=== PATIENT | male | born 1950 | race Caucasian/White ===

== ENCOUNTER 2016-10-13 12:22 | Emergency (ER) | payer MEDICARE ==
[2016-10-13] MEDS ORDERED: oxyCODONE/Acetamin 5/325 MG* TAB PO ONE (13:29)
--- NOTE | 2016-10-13 13:54 | RAD ---
Indication: Fell and landed on back. Comparison: No relevant prior exams available on the [facility] for comparison. Technique: Upright AP 1335 hours Report: Mild prominence of the interstitial markings. Negative for pleural effusion or pneumothorax. Median sternotomy wires. Upper normal heart size. Unremarkable central pulmonary vasculature. No fractures evident. IMPRESSION: No traumatic thoracic injury evident.
[2016-10-13 16:14] VITALS: BP 171/75
--- NOTE | 2016-10-13 18:57 | ED ---
Peter Mixon Auryana, scribed for Devin Steele MD on 10/13/16 at 1352 . Back Pain - HPI Summary HPI Summary: 66 year old male presents with back pain s/p fall starting at 10:00 am. Patient reports that he slipped and fell on wet stairs. The pain radiates to the right shoulder. He denies any head injuries or any other pain. Pain is worse with movement, coughing, and laying back. 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 PMHx is significant for NV, and CABG. - History of Current Complaint Chief Complaint: EDBackInjuryPain Stated Complaint: FELL DOWN STAIRS Time Seen by Provider: 10/13/16 13:10 Hx Obtained From: Patient Onset/Duration: Sudden Onset - s/p fall today, Still Present Onset/Duration: Started Hours Ago Timing: Constant Back Pain Location: Is Discrete @ - back, Radiates To - right shoulder Severity Initially: Moderate Severity Currently: Moderate Pain Intensity: 7 Pain Scale Used: 0-10 Numeric Aggravating Symptom(s): Movement, Cough Associated Signs And Symptoms: Positive: Negative - Allergies/Home Medications Allergies/Adverse Reactions: Allergies Allergy/AdvReac Type Severity Reaction Status Date / Time No Known Allergies Allergy Verified 10/13/16 13:45 Home Medications: Home Medications Nitroglycerin TAB 0.4 MG* 0.4 mg SL Q5M PRN 10/13/16 [History Confirmed 10/13/16 ] PMH/Surg Hx/FS Hx/Imm Hx Cardiovascular History: Reports: Hx Myocardial Infarction - with stent placement Infectious Disease History: No Infectious Disease History: Denies: Traveled Outside the [place] in Last 30 Days - Family History Known Family History: Positive: Cardiac Disease, Other - CVA - Social History Occupation: Retired Lives: With Family Alcohol Use: None Hx Substance Use: No Substance Use Type: Reports: None Hx Tobacco Use: Yes Smoking Status (MU): Current Every Day Smoker Review of Systems Constitutional: Negative Negative: Fever Eyes: Negative ENT: Negative Cardiovascular: Negative Respiratory: Negative Gastrointestinal: Negative Genitourinary: Negative Positive: Myalgia - back pain Skin: Negative Neurological: Negative Psychological: Normal All Other Systems Reviewed And Are Negative: Yes Physical Exam Triage Information Reviewed: Yes Vital Signs On Initial Exam: Initial Vitals Temp Pulse Resp BP Pulse Ox 97.3 F 86 20 188/78 100 10/13/16 12:37 10/13/16 12:37 10/13/16 12:37 10/13/16 12:37 10/13/16 12:37 Vital Signs Reviewed: Yes Appearance: Positive: Well-Appearing, No Pain Distress, Well-Nourished Skin: Positive: Warm, Skin Color Reflects Adequate Perfusion, Dry, Other - abrasion of the right posterior chest with tenderness. Head/Face: Positive: Normal Head/Face Inspection Eyes: Positive: Normal ENT: Positive: Normal ENT inspection Neck: Positive: Supple, Nontender Respiratory/Lung Sounds: Positive: Breath Sounds Present, Other - RIGHT BASE - slight decreased in breath sounds Cardiovascular: Positive: Normal, RRR, Pulses are Symmetrical in both Upper and Lower Extremities Abdomen Description: Positive: Nontender, Soft Bowel Sounds: Positive: Present Musculoskeletal: Positive: Normal, Strength/ROM Intact Neurological: Positive: Normal, Sensory/Motor Intact Psychiatric: Positive: Normal, Affect/Mood Appropriate - [place] Coma Scale Coma Scale Total: 15 Diagnostics - Vital Signs Vital Signs Temp Pulse Resp BP Pulse Ox 10/13/16 12:46 97.3 F 86 18 182/82 98 10/13/16 12:37 97.3 F 86 20 188/78 100 - Laboratory Lab Statement: Any lab studies that have been ordered have been reviewed, and results considered in the medical decision making process. - Radiology CXR Xray Interpretation: No Acute Changes - IMPRESSION: No traumatic thoracic injury evident. Radiology Interpretation Completed By: Radiologist Re-Evaluation - Re-Evaluation First Eval Re-Evaluation Time: 15:13 - disucssed discharge Change: Improved - slight Back Pain Course/Dx - Course Course Of Treatment: Mr. Quigley slipped and fell back hittiing his right midback on the stairs. He has no SOB but does have pleuritic CP and CP with movement. His abdomen was soft and lungs a bit decreased likely from splinting. X-ray was OK and I treated him symptomatically. - Diagnoses Provider Diagnoses: Chest wall contusion Discharge - Discharge Plan Condition: Stable Disposition: HOME Prescriptions: oxyCODONE/Acetamin 5/325 MG* [Percocet 5/325 TAB*] 1 tab PO Q6H PRN #20 tab MDD 4 PRN Reason: Pain Patient Education Materials: Chest Wall Pain (ED) Referrals: [facility] [Outside] - 3 Days The documentation as recorded by the Peter ogden Auryana accurately reflects the service I personally performed and the decisions made by me, Devin Steele MD.
== END 2016-10-13 16:14 | disposition home or self-care (01) ==
LOC: ED 12:22
DX: S20.211A Contusion of right front wall of thorax, initial encounter (principal); M54.9 Dorsalgia, unspecified; R05 Cough; M79.1 Myalgia; F17.210 Nicotine dependence, cigarettes, uncomplicated; W10.9XXA Fall (on) (from) unspecified stairs and steps, initial encounter; Y93.9 Activity, unspecified; Y92.9 Unspecified place or not applicable; Y99.9 Unspecified external cause status
CPT/HCPCS: 71010; 99282; A9270-GY

== ENCOUNTER 2017-11-29 07:39 | Inpatient (IN) | payer MEDICARE ==
[2017-11-29] MEDS ORDERED: Nitroglycerin TAB 0.4 MG* 0.4 MG TAB ONE (07:41)
[2017-11-29] MEDS ORDERED: Heparin for STEMI(*) 5,000 UNITS/ML 1 ML VIAL IV ONE ×2 (07:41→07:42)
[2017-11-29] MEDS ORDERED: Aspirin 81 mg CHEW TAB* 81 MG TAB.CHEW ONE (07:41)
[2017-11-29] MEDS ORDERED: Morphine INJ* 2 MG/ML 1 ML SYRINGE (TWO MG - NEW SYRINGE VERSION) ONE (07:41)
[2017-11-29] MEDS ORDERED: Ticagrelor* 90 MG TAB PO ONE ×2 (07:41→07:42)
[2017-11-29] MEDS ORDERED: Morphine INJ** 4 MG/ML 1 ML CARPUJECT IV ONE (07:42)
[2017-11-29] MEDS ORDERED: Ondansetron INJ* 2 MG/ML VIAL ONE (07:42)
[2017-11-29] MEDS ORDERED: Ondansetron INJ* 2 MG/ML VIAL IV ONE (07:43)
[2017-11-29] MEDS ORDERED: Heparin 2 UNITS/ML IVPREMIX* 2,000 ML IV ONE (07:46)
[2017-11-29] MEDS ORDERED: Iohexol 350 (CONTRAST) 200 ML MDV IV ONE (07:47)
[2017-11-29] MEDS ORDERED: Lidocaine 1%* 5 ML VIAL ONE (07:47)
[2017-11-29] MEDS ORDERED: Midazolam* 1 MG/ML 10 ML VIAL (10 MG) ONE (07:53)
[2017-11-29] MEDS ORDERED: fentaNYL* 50 MCG/ML 2 ML VIAL (100 MCG VIAL) ONE ×2 (07:53→08:31)
[2017-11-29] MEDS ORDERED: Heparin(*) 1000 UNIT/ML 10 ML VIAL CATH LAB IV ONE (07:53)
[2017-11-29] MEDS ORDERED: nitroGLYCERIN DRIP* 25,000 MCG/250 ML BTL ONE ×2 (07:55)
[2017-11-29] MEDS ORDERED: nitroGLYCERIN DRIP* 25,000 MCG/250 ML BTL IV ONE (07:56)
--- NOTE | 2017-11-29 08:06 | ED ---
HPI Chest Pain - HPI Summary HPI Summary: This is scribe Collins Tariq documenting for attending Dr. Waqas Nation This patient is a 67 year old M [facility] with a chief complaint of 8/10 chest pain since just after rising after waking up at 0600 this AM. STEMI alert called 0732. Patient was given 2 NTG en route by EMS, and took 2 NTG of his own prior to EMS arrival. PMHx CT, CABG, 4x stents 04/1999 in [place], HTN, HLD, no DM. He endorses that the pain is similar as previous CT ; severe left anterior CP and pressure radiating to his left shoulder. Pt denies SOB and nausea. Patient endorses that his pain is progressively worsening. Pt has had previous catheterizations through both his wrist and groin. Pt actively smokes. I, Dr. Alan personally performed the services described in this documentation as scribed in my presence and it is both accurate and complete. - History of Current Complaint Chief Complaint: EDChestPainROMI Time Seen by Provider: 11/29/17 07:55 Hx Obtained From: Patient Onset/Duration: Started Hours Ago, Still Present, Worse Since - progressively worsening Timing: Constant, Lasting Hours Initial Severity: Moderate Current Severity: Severe Pain Intensity: 8 Pain Scale Used: 0-10 Numeric Chest Pain Location: Discrete at:, Left Anterior Chest Pain Radiates: Yes Chest Pain Radiates To:: Shoulder - left Character: Pressure/Squeezing Aggravating Factor(s): Exertion - Getting up and out of bed. Alleviating Factor(s): Nothing Associated Signs and Symptoms: Positive: Chest Pain. Negative: Shortness of Breath, Fever, Nausea, Vomiting Related History: Similar Episode/Dx as: - CT 1999, 4x stents, CABG - Allergy/Home Medications Allergies/Adverse Reactions: Allergies Allergy/AdvReac Type Severity Reaction Status Date / Time No Known Allergies Allergy Verified 11/29/17 07:53 Home Medications: Home Medications Atorvastatin* [Lipitor*] 80 mg PO DAILY 11/29/17 [History Confirmed 11/29/17] Hydrochlorothiazide TAB* [Hydrodiuril TAB*] 25 mg PO DAILY 11/29/17 [History Confirmed 11/29/17] Lisinopril TAB* [Prinivil TAB*] 10 mg PO DAILY 11/29/17 [History Confirmed 11/29] PMH/Surg Hx/FS Hx/Imm Hx Endocrine/Hematology History: Denies: Hx Diabetes, Hx Sickle Cell Disease Cardiovascular History: Reports: Hx Hypercholesterolemia, Hx Hypertension, Hx Myocardial Infarction - with stent placement History: Denies: Hx Dialysis Sensory History: Denies: Hx Legally Blind, Hx Deafness Opthamlomology History: Denies: Hx Legally Blind EENT History: Denies: Hx Deafness Psychiatric History: Denies: Hx Schizophrenia - Surgical History Surgery Procedure, Year, and Place: CABG, 4x stent 04/1999 in [place]. Infectious Disease History: No Infectious Disease History: Denies: Traveled Outside the in Last 30 Days - Family History Known Family History: Positive: Cardiac Disease, Other - CVA - Social History Lives: With Family Alcohol Use: None Hx Substance Use: No Substance Use Type: Reports: None Hx Tobacco Use: Yes Smoking Status (MU): Current Every Day Smoker Review of Systems Negative: Fever Positive: Chest Pain Negative: Shortness Of Breath Negative: Nausea Positive: no symptoms reported Positive: Arthralgia - left shoulder All Other Systems Reviewed And Are Negative: Yes Physical Exam - Summary Physical Exam Summary: VITAL SIGNS: Reviewed. GENERAL: Patient is a well-developed and nourished elderly male who is lying in the stretcher in distress secondary to pain. Patient is not in any acute respiratory distress. HEAD AND FACE: No signs of trauma. No ecchymosis, hematomas or skull depressions. No sinus tenderness. EYES: PERRLA, EOMI x 2, No injected conjunctiva, no nystagmus. EARS: Hearing grossly intact. Ear canals and tympanic membranes are within normal limits. MOUTH: Oropharynx within normal limits. Dry oral mucosa NECK: Supple, trachea is midline, no adenopathy, no JVD, no carotid bruit, no c- spine tenderness, neck with full ROM. CHEST: Symmetric, no tenderness at palpation LUNGS: Clear to auscultation bilaterally. No wheezing or crackles. CVS: Regular rate and rhythm, S1 and S2 present, no murmurs or gallops appreciated. ABDOMEN: Soft, non-tender. No signs of distention. No rebound, no guarding, and no masses palpated. Bowel sounds are normal. EXTREMITIES: FROM in all major joints, no edema, no cyanosis or clubbing. NEURO: Alert and oriented x 3. No acute neurological deficits. Speech is normal and follows commands. SKIN: Dry and warm, shah discoloration in both legs, probably secondary to vascular insufficiency. Triage Information Reviewed: Yes Vital Signs On Initial Exam: Initial Vitals Temp Pulse Resp BP Pulse Ox 97.7 F 102 18 174/98 99 11/29/17 07:42 11/29/17 07:42 11/29/17 07:42 11/29/17 07:42 11/29/17 07:42 Vital Signs Reviewed: Yes Diagnostics - Vital Signs Vital Signs Temp Pulse Resp BP Pulse Ox 11/29/17 07:42 97.7 F 102 18 174/98 99 - Laboratory Result Diagrams: 11/30/17 04:45 11/30/17 04:45 Lab Statement: Any lab studies that have been ordered have been reviewed, and results considered in the medical decision making process. - EKG 0740 Cardiac Rate: Tachycardia - 100 EKG Rhythm: Sinus Tachycardia Ectopy: None EKG Interpretation: ST elevations in II, III, AVF, and reciprocal changes in V2- V5. Chest Pain Course/Dx - Course Course Of Treatment: Pt given heparin at 0805, and heparin, morphine, zofran, and brilinta at 0806. STEMI alert called 0732. Assessment/Plan: This patient is a 59-year-old male who presents to the emergency department with a chief complaint of having left sided chest pain. The patient arrived via EMS. He reports that pain started approximately 6 AM and he feels like when he had a previous CT. He denies any nausea vomiting, shortness of breath and dizziness. Pain is nonradiating. He has past medical history for CT status post stents, a quadruple bypass, hypertension, dyslipidemia. Patient is a nonsmoker. EKG shows an ST elevations in 2, 3 and aVF with reciprocal changes in V2 to V5. EMS has given nitroglycerin 4 and aspirin 324. In the ED course the patient was given Brilinta, Zofran, morphine , and heparin. The patient continued to have chest pain therefore we started and the nitroglycerin drip. Discussed the case with Dr. Molina who will be taking the patient to the [facility]. At this time the patient is hemodynamically stable alert and oriented 3. - Chest Pain Differential Diagnosis/HQI/PQRI: Acute CT, ACS, Angina, Aortic Aneurysm, CHF, Chest Wall, GI Disease, Lower Respiratory Infection - Diagnoses Provider Diagnoses: STEMI (ST elevation myocardial infarction) During the Visit The Following Alert/Code Occurred: STEMI - Provider Notifications Discussed Care Of Patient With: Maida Molina Time Discussed With Above Provider: 07:36 Instructed by Provider To: Other - Will admit pt because he thinks pt has inferior infarct. - Critical Care Time Critical Care Time: 30-74 min Discharge - Sign-Out/Discharge Documenting (check all that apply): Patient Departure - admit - Discharge Plan Condition: Critical Disposition: ADMITTED TO [facility] - Billing Disposition and Condition Condition: CRITICAL Disposition: Admitted to [facility] Attestations User Type: Provider with Scribe Provider Attestation: The documentation recorded by the scribe accurately reflects the service I personally performed and the decisions made by me.
[2017-11-29 08:08] LABS: EGFR Non-African American 60.2 (>60); INR 0.95 (0.77-1.02)
[2017-11-29 08:11] LABS: Hematocrit 48 % (42-52); Hemoglobin 16.2 g/dl (14.0-18.0); Mean Corpuscular HGB Conc 34 g/dl (31-36); Mean Corpuscular Hemoglobin 30 pg (27-31); Mean Corpuscular Volume 87 fL (80-94); Red Blood Count 5.47 10^6/ul (4.00-5.40); Red Cell Distribution Width 14 % (10.5-15); White Blood Count 7.9 10^3/ul (3.5-10.8)
[2017-11-29] MEDS ORDERED: Iodixanol* (CONTRAST) 320 MG/ML 100 ML SDV ONE (08:14)
--- NOTE | 2017-11-29 08:18 | RAD ---
INDICATION: Chest pain COMPARISON: October 13, 2016 TECHNIQUE: An AP portable view obtained at 0080 hours is submitted. FINDINGS: Bones/Soft Tissues: There are no acute bony findings. There is prior sternotomy/CABG Cardiomediastinal: The cardiomediastinal silhouette is normal. Lungs: There are no infiltrates. Pleura: There are no pleural effusions. Other: None IMPRESSION: NO ACTIVE DISEASE. POSTOPERATIVE CHANGE
[2017-11-29] MEDS ORDERED: Metoprolol Tartrate IV* 1 MG/ML 5 ML VIAL ONE (08:28)
[2017-11-29 08:35] LABS: ABS Basophils 0.1 10^3/ul (0-0.2); ABS Eosinophils 0.2 10^3/ul (0-0.6); ABS Lymphocytes 1.6 10^3/ul (1.0-4.8); ABS Monocytes 0.5 10^3/ul (0-0.8); ABS Neutrophils 5.5 10^3/ul (1.5-7.7); ABS Nucleated RBC 0 10^3/ul; Eosinophil % 2.6 % (0-6); Lymphocyte % 19.9 % (25-47); Mean Platelet Volume 9.1 um3 (7.4-10.4); Nucleated Red Blood Cells % 0.1; Platelet Count 99 10^3/ul (150-450)
[2017-11-29] MEDS ORDERED: Heparin 2 UNITS/ML IVPREMIX* 1,000 ML IV ONE (09:12)
[2017-11-29] MEDS ORDERED: NS 0.9% 1000 ML* 1,000 ML IV ONE (10:19)
[2017-11-29] MEDS ORDERED: Acetaminophen TAB* 325 MG PO PRN (10:19)
[2017-11-29] MEDS ORDERED: Nitroglycerin TAB 0.4 MG* 0.4 MG TAB SL PRN (10:19)
[2017-11-29] MEDS: Metoprolol Tartrate TAB* 25 MG PO SCH ×2 (11:02→19:17)
[2017-11-29] MEDS: Atorvastatin* 80 MG TAB PO SCH (16:24)
[2017-11-29] MEDS: Ticagrelor* 90 MG TAB PO SCH (20:19)
[2017-11-29] MEDS: Lisinopril TAB* 10 MG PO SCH (20:19)
--- NOTE | 2017-11-29 20:58 | HP ---
CC: Dr. Varghese; Dr. Stokes * HISTORY AND PHYSICAL: DATE OF ADMISSION: 11/29/17 PRIMARY CARE PHYSICIAN: Dr. Varghese. MATCH MAKER: Dr. Stokes. HISTORY OF PRESENT ILLNESS: A 67-year-old male with extensive cardiac history presenting to the ER with inferior wall ST elevation infarct. I have reviewed his [facility] records as well as old records from [place]. He apparently had an infarct around 1994; in 1999, he had CABG x4 in [place] with a VARGAS to the LAD, a saphenous vein graft sequence to a diagonal and a marginal, and a second saphenous vein graft to the RCA, which was described as dominant. In 2008, he had an inferior wall ST elevation infarct, had catheterization in [place], which revealed severe diffuse degeneration of the RCA graft. RCA graft intervention was attempted, resulted in no reflow with an inferior ST elevation infarct. EF was 40%. At that time, his RCA had a [employer] , the vein graft to the diagonal and circumflex was patent, apparently subsequently, he has had intervention. In 2010, he presented here in [place] with a non-Q-wave infarct. Cath here by Dr. Noonan revealed proximal circumflex 85% stenosis, 70% left main stenosis, patent LAD with flow from the VARGAS, and occlusion of the vein graft to the RCA with severe diffuse disease of the vein graft to the marginal, which was not intervened on because of high risk , instead [place] circumflex was stented with a 2.75x18 LILIAM. However, the bypassed marginal branch was not intervened upon. VARGAS to LAD was patent. EF then was described as 35% to 40% by echo. He has history of apparent intermittent medication noncompliance, has continued to smoke. PAST MEDICAL HISTORY: Hyperlipidemia, hypertension. PREHOSPITAL MEDICATIONS: 1. Nitroglycerin 0.4 sublingual p.r.n. 2. Lisinopril 10 mg b.i.d. 3. Lipitor 80 mg daily. 4. HydroDIURIL 25 mg daily. 5. He is not on beta-kate, does not have any history of beta-kate intolerance. He has known LV systolic dysfunction. ALLERGIES: None to medication. SOCIAL HISTORY: He is a smoker. REVIEW OF SYSTEMS: General: No weight loss. No fevers. BURIAL AGENT: No history of TIA or CVA. GI: No history of peptic ulcer disease or bleeding. In the past on aspirin and Plavix, he has not had bleeding. Heme: No history of malignancy or anemia. Circulatory: No claudication, although bruits have been described previously in his femorals. Remainder all negative. PHYSICAL EXAMINATION VITAL SIGNS: Presenting BP 174/98, heart rate 102. In the cath lab tech, he was complaining of severe chest pain. HEENT: Normal without xanthelasma, scleral injection, or jaundice. NECK: Carotids without bruits, palpable. LUNGS: Clear laterally without rales. CARDIAC: Notable for a probable S4 gallop and a soft systolic murmur suggestive of MR. Maneuvers were not performed. ABDOMEN: Soft, nontender. No bruit, I could not feel the aorta or liver edge. EXTREMITIES: Femoral pulses palpable with soft bruits. Pedal pulses palpable. No cyanosis, clubbing, or edema. Radial pulses palpable. DIAGNOSTIC STUDIES/LAB DATA: EKG at [address] elevation infarct with already inferior Q-waves as well as reciprocal ST depression at I, aVL, V2 through V5. Compared to EKG of 11/14/10, the inferior Q-waves are old, the acute infarct pattern is new. His CBC is notable only for a platelet count of 99,000, in the past has been as low as 107,000. BMP noted for creatinine of 1.2 with GFR of 60, last creatinine on 11/09/10 was 0.89. Random blood sugar 149. His lactate is normal. BNP elevated at 348. First troponin 0.05. Cholesterol 211, triglycerides 104, LDL 160, HDL 30.7, the patient reports that he is taking his Lipitor 80. Chest x-ray: Portable film, my review shows borderline cardiomegaly, calcification of the aortic knob, changes of previous bypass surgery and no gross heart failure or infiltrate. IMPRESSION AND PLAN: 1. Inferior wall ST elevation infarct. He has had previous bypass, in 2010 had documented occlusion of the graft to the right coronary artery, diffuse degenerative disease of the vein graft to the diagonal and circumflex obtuse marginal. Proximal circumflex was stented, he had moderate left main disease with moderate left ventricular systolic dysfunction. 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 Most likely, culprit lesion will be either circumflex progression or restenosis or progression of his left main. 2. Renal insufficiency, new diagnosis. We will minimize contrast use, volume load, repeat. 3. Hyperlipidemia. Per history, he is taking Lipitor 80, yet his LDL is very elevated. 4. Hypertension. 5. Left ventricular systolic dysfunction. He is not on a beta-kate, that will be restarted. 6. Thrombocytopenia, unknown etiology. This can be followed as an outpatient. [id number]/[facility] #: [id number] MTDD
[2017-11-30] MEDS: Metoprolol Tartrate TAB* 25 MG PO SCH ×3 (02:57→18:28)
[2017-11-30 04:58] LABS: ABS Basophils 0.1 10^3/ul (0-0.2); ABS Eosinophils 0.1 10^3/ul (0-0.6); ABS Lymphocytes 0.8 10^3/ul (1.0-4.8); ABS Monocytes 0.5 10^3/ul (0-0.8); ABS Neutrophils 5.4 10^3/ul (1.5-7.7); ABS Nucleated RBC 0 10^3/ul; Eosinophil % 1.2 % (0-6); Hematocrit 47 % (42-52); Hemoglobin 15.9 g/dl (14.0-18.0); Lymphocyte % 11.2 % (25-47); Mean Corpuscular HGB Conc 34 g/dl (31-36); Mean Corpuscular Hemoglobin 30 pg (27-31); Mean Corpuscular Volume 88 fL (80-94); Mean Platelet Volume 8.8 um3 (7.4-10.4); Nucleated Red Blood Cells % 0.1; Platelet Count 69 10^3/ul (150-450); Red Blood Count 5.32 10^6/ul (4.00-5.40); Red Cell Distribution Width 14 % (10.5-15); White Blood Count 6.9 10^3/ul (3.5-10.8)
[2017-11-30] MEDS ORDERED: Perflutren Lipid Microsphere* 3 ML VIAL ONE (09:02)
[2017-11-30] MEDS: Lisinopril TAB* 10 MG PO SCH ×2 (09:32→21:54)
[2017-11-30] MEDS: Aspirin 81 mg CHEW TAB* 81 MG TAB.CHEW PO SCH (09:32)
[2017-11-30] MEDS: Ticagrelor* 90 MG TAB PO SCH ×2 (09:32→21:54)
--- NOTE | 2017-11-30 15:49 | ECHO ---
Patient: YARON WHITING Rec#: [id number] : 1950 Date: 11/30/2017 Age: 67y Height: 183 cm / 72.0 in Weight: 81.6 kg / 179.8 lbs Sex: M BSA: 2.04 Room#: ICU 12 Admit Date#: 11/29/2017 Type: Inpatient Referring: Maida Molina MD Reading: Johnny Sanchez MD Vegetable Loader Machine Operator: Meli Betancourt RN RDCS CC: Armand Varghese MD Transthoracic Echocardiogram Indication: STEMI, S/P PCI BP: 161/77 HR: 58 Rhythm: Bradycardia Findings History: CAD, CABG, PCI, HTN, HLD, former smoker Technical Comments: The study quality is fair. The study is technically limited due to poor apical windows. Left Ventricle: The left ventricular chamber size is mildly dilated. Moderate concentric left ventricular hypertrophy is observed. There are multiple regional wall motion abnormalities. There is moderate to severely decreased left ventricular systolic function. The estimated ejection fraction is 30-35%. Abnormal left ventricular diastolic function is observed. The left ventricular diastolic filling pattern is restrictive. The left ventricular diastolic filling pattern is consistent with elevated mean left atrial pressure. The basal anteroseptal, basal anterior, basal inferoseptal, mid anteroseptal, mid anterior, mid inferoseptal, apical septal, and apical lateral wall segments are hypokinetic (score 2). The basal anterolateral, mid anterolateral, and mid inferior wall segments are akinetic (score 3). The basal inferior wall segment is dyskinetic (score 4). There is scarring/thinningof the basal inferolateral, and mid inferolateralwall segments (score 5). Overall wallmotion score index is 2.56 Left Atrium: The left atrium is mildly dilated. Right Ventricle: The right ventricle is slightly dilated. The right ventricular global systolic function is low normal. Right Atrium: The right atrium is mildly dilated. Aortic Valve: The aortic valve leaflets are moderately thickened. Systolic excursion of the aortic valve cusps is reduced. There is no evidence of aortic regurgitation. There is moderate to severe aortic stenosis. The mean gradient of the aortic valve is 13 mmHg. The peak instantaneous gradient of the aortic valve is 25 mmHg. The aortic valve area, by peak velocities, is calculated at 1.1 cm2. The aortic valve area, by VTI's, is calculated at 1 cm2. consistent with low output/low gradient aortic stenosis. The highest aortic valve velocity was obtained with the standard probe from the A5C view. Mitral Valve: There is mitral annular calcification. The mitral valve leaflets are mildly thickened. There is mild mitral regurgitation. There is no evidence of mitral stenosis. Tricuspid Valve: The tricuspid valve leaflets are normal. There is mild tricuspid regurgitation. Unable to estimate the right ventricular systolic pressure. There is no tricuspid stenosis. Pulmonic Valve: The pulmonic valve appears normal. There is a trace pulmonic regurgitation. There is no pulmonic stenosis. Pericardium: There is no significant pericardial effusion. Aorta: There is no dilatation of the ascending aorta. The aortic arch is not well visualized. There is no dilation of the aortic root. Pulmonary Artery: The main pulmonary artery appears normal. Venous: The inferior vena cava is dilated. There is an approximate 50% respiratory change in the inferior vena cava dimension. Contrast: Definity was used to optimize study. A total of 5 ml of diluted Definity was given IV. Conclusions The left ventricular chamber size is mildly dilated. Moderate concentric left ventricular hypertrophy is observed. There are multiple regional wall motion abnormalities. There is moderate to severely decreased left ventricular systolic function. The estimated ejection fraction is 30-35%. The left ventricular diastolic filling pattern is restrictive. The left ventricular diastolic filling pattern is consistent with elevated mean left atrial pressure. The left atrium is mildly dilated. The right ventricle is slightly dilated. The right ventricular global systolic function is low normal. The right atrium is mildly dilated. The aortic valve leaflets are moderately thickened. There is moderate to severe aortic stenosis. The aortic valve area, by VTI's, is calculated at 1 cm2, consistent with low output/low gradient aortic stenosis. There is mild mitral regurgitation. There is mild tricuspid regurgitation. Compared to 10/2010, the EF has decreased from 40-45% then to 30-35% now. The Aortic stenosis is new. Measurements Name Value Normal Range RVIDd (AP) 2D 2.9 cm (0.9 - 2.6) RVDdMajor (2D) 3.9 cm (2.2 - 4.4) RAd ISD 4CH 5.7 cm (3.4 - 4.9) RA (A4C)W 4.6 cm (2.9 - 4.6) IVSd (2D) 1.4 cm (0.6 - 1) LVPWd (2D) 1.3 cm (0.6 - 1) LVIDd (2D) 5.8 cm (3.6 - 5.4) LVIDs (2D) 4.8 cm - LV FS (2D) 17 % (25 - 45) EF Teichholz (2D) 35 % - Aortic Annulus 2.1 cm (1.4 - 2.6) Ao root diameter (2D) 2.7 cm (2.1 - 3.5) Ascending Ao 3.1 cm (2.1 - 3.4) LA dimension (AP) 2D 4.6 cm (2.3 - 3.8) LAd ISD 4CH 5.7 cm (2.9 - 5.3) LA ISD 4CH W 4.5 cm (2.5 - 4.5) Name Value Normal Range LA ESV BP (A/L) index 27.8 ml/m2 - Name Value Normal Range MV E-wave Vmax 1.1 m/sec - MV deceleration time 222 msec - MV A-wave Vmax 0.54 m/sec - MV E:A ratio 2 ratio - LV septal e' Vmax 0.05 m/sec - LV lateral e' Vmax 0.07 m/sec - LV E:e' septal ratio 22 ratio - LV E:e' lateral ratio 15.7 ratio - Name Value Normal Range AV Vmax 2.5 m/sec - AV VTI 54.8 cm - AV peak gradient 25 mmHg - AV mean gradient 13 mmHg - LVOT diameter 2 cm - LVOT Vmax 0.83 m/sec - LVOT VTI 17.2 cm - LVOT peak gradient 3 mmHg - LVOT mean gradient 1 mmHg - DOI (VTI) 0.31 ratio - DOI (Vmax) 0.33 ratio - SV LVOT 54 ml - CO LVOT 3.1 l/min - Cardiac index 1.5 l/min/m2 - ROSLYN (continuity Vmax) 1.1 cm2 - ROSLYN (continuity VTI) 1 cm2 - Name Value Normal Range IVC diameter 2.3 cm - Name Value Normal Range PV Vmax 0.69 m/sec - Wallmotion BAS Hypokinetic BA Hypokinetic BAL Akinetic HARI Scarring/Thinning BI Dyskinetic BIS Hypokinetic MAS Hypokinetic MA Hypokinetic MAL Akinetic MIL Scarring/Thinning NE Akinetic MIS Hypokinetic Hypokinetic AA Normal AL Hypokinetic AI Normal APEX Normal
[2017-11-30] MEDS: Atorvastatin* 80 MG TAB PO SCH (16:39)
[2017-12-01] MEDS: Metoprolol Tartrate TAB* 25 MG PO SCH ×2 (03:46→10:53)
[2017-12-01 06:04] LABS: ABS Basophils 0.1 10^3/ul (0-0.2); ABS Eosinophils 0.1 10^3/ul (0-0.6); ABS Monocytes 0.6 10^3/ul (0-0.8); ABS Neutrophils 5.9 10^3/ul (1.5-7.7); ABS Nucleated RBC 0 10^3/ul; Eosinophil % 1.5 % (0-6); Hematocrit 45 % (42-52); Hemoglobin 15.1 g/dl (14.0-18.0); Lymphocyte % 12.4 % (25-47); Mean Corpuscular HGB Conc 34 g/dl (31-36); Mean Corpuscular Hemoglobin 29 pg (27-31); Mean Corpuscular Volume 87 fL (80-94); Mean Platelet Volume 9.6 um3 (7.4-10.4); Nucleated Red Blood Cells % 0.1; Platelet Count 78 10^3/ul (150-450); Red Blood Count 5.21 10^6/ul (4.00-5.40); Red Cell Distribution Width 14 % (10.5-15); White Blood Count 7.7 10^3/ul (3.5-10.8)
[2017-12-01] MEDS: Aspirin 81 mg CHEW TAB* 81 MG TAB.CHEW PO SCH (07:52)
[2017-12-01] MEDS: Lisinopril TAB* 10 MG PO SCH ×2 (07:53→20:21)
[2017-12-01] MEDS: Ticagrelor* 90 MG TAB PO SCH ×3 (07:53→20:21)
--- NOTE | 2017-12-01 16:14 | CATH ---
CC: Dr. Varghese; Dr. Galileo Stokes at [place]. STENT REPORT: DATE OF PROCEDURE: 11/29/17 PRIMARY CARE PHYSICIAN: Dr. Varghese. CARDIOTHORACIC ICU RN: Dr. Galileo Stokes at [place]. PROCEDURES: Right common femoral artery access, VARGAS angiography, saphenous vein graft angiography, bilateral selective coronary cineangiography, stent placement left main 3.5 x 16 drug-eluting stent, stent placement circumflex 3.0 x 8 Synergy drug-eluting stent, intracoronary IVUS evaluation, left heart catheterization. No left ventriculogram. HISTORY: A 67-year-old male with remote inferior infarct around 1994. He underwent bypass x4 in 1999 with a VARGAS to the LAD, saphenous vein graft sequenced to a diagonal and marginal, and a saphenous vein graft to the RCA. In [address]-elevation infarct, attempted RCA revascularization in [place] was accompanied by no reflow and an inferior ST- elevation infarct, EF 40%. He underwent catheterization here in 2010 in the setting of a non ST-elevation infarct, was found to have 80% proximal circumflex stenosis which was stented with a 2.75 x 18 drug-eluting stent. The RCA was occluded, the left main had 70% stenosis, the vein graft to the RCA was occluded, the vein graft to the marginal was diffusely and severely diseased and was not treated, the VARGAS to the LAD was patent. Echo EF was 35% to 40%. Cath in 2014 apparantly revealed the SVG to Dx/CxOM to be occluded. He presented with an inferior ST-elevation infarct with suspected progression of his left main disease or circumflex or in-stent circumflex restenosis. PROCEDURE ACCESS: Right common femoral artery sheath 6F. DIAGNOSTIC CATHETER: 6F SILVESTRE, 6F L4. MEDICATIONS: 1. Subcu lidocaine. 2. IV Versed. 3. IV fentanyl. 4. Brilinta 180 mg p.o. in the ER as well as aspirin. 5. Heparin 4000 units IV, 3000 units IV. 6. Lopressor 5 mg IV. 7. Continued IV nitroglycerin infusion. GUIDING CATHETER: Left main circumflex intervention 6FLBU 3.5 wire 14 BMW. The left main lesion was the presumed culprit as the circumflex appears to be codominant and the left coronary system provides left to right collaterals to the distal right coronary. After the left main and circumflex were wired, a 3 x 15 balloon was used to predilate the left main, at 14 atmospheres for 27 seconds, 17 atmospheres at 20 seconds. It was then stented with a 3.5 x 16 Synergy drug- eluting stent 11 atmospheres 14 seconds, postdilated with a 3.5 x 15 NC balloon 16 and then 18 atmospheres. An OptiCross 3-Malay IVUS catheter was then introduced to ensure adequate expansion and apposition within the left main. Because of inadequate expansion the 3.5 x 15 mm balloon was then reinflated to 20 atmospheres of 15 seconds, 20 for 15, 20 for 15, and in the proximal left main to 22 atmospheres of 15 seconds. A stenosis at the distal end of the old proximal circumflex stent was evident post high pressure dilatation, was covered with a 3 x 8 mm Synergy drug-eluting stent 11 atmospheres 13 seconds, post dilated with a 3 x 8 NC balloon 16 atmospheres 35 seconds. Repeat IVUS evaluation was performed, right femoral artery was closed with Angio-Seal. HEMODYNAMICS: Initial AO 153/78. Final BP 122/70. LV 142/20, on pull back at most 5 mm peak to peak gradient. ANGIOGRAPHY: Right common femoral artery: Sheath entry is in segment 2, there is no stenosis. VARGAS: The SILVESTRE is moderate, inserts into the mid LAD without insertion stenosis , fills the antegrade to the apex, there are septal to distal right collaterals. The LAD has a proximal competitive flow, has a proximal small bifurcated diagonal which appears to be diffusely decreased. Saphenous Vein Graft Circumflex: The graft nubbin was injected, it is occluded. The RCA vein graft is known to be occluded. Minto RCA: The RCA is by prior description dominant, although I wondered if it was codominant, again it is occluded in its mid portion, fills by bridging collaterals as well as by right to left collaterals. The occlusion is not well suited for revascularization. Left Main: The left main has progressed since 2010 with an 80% to 90% tubular stenosis, there was wedging with catheter engagement. LAD: The LAD has on ostial slit-like 80% stenosis, followed by a moderate to diagonal, then has competitive flow from the VARGAS. Circumflex: The circumflex is likely codominant, moderate, has ostial 50% stenosis. The first marginal is very small, the second marginal is the grafted vessel, the origin is not clearly identifiable, distally it trifurcates. At the end of the procedure I did attempt to enter the second marginal using a BMW as well as a PT Graphix wire without being able to engage the ostium. Distally , the circumflex supplies a moderate posterolateral, and a small probable circumflex PDA. There are left to right distal collaterals. There was heavy calcification of the left main, proximal LAD, and proximal circumflex. After left main revascularization, postdilatation, and placement of an additional distal circumflex stent there was a step down at the distal end of the most distal stent, the left main is still smaller than the proximal circumflex, but much improved. Distal circumflex fills normally, including a circumflex PDA which abruptly stopped, I wonder if it was originally bypassed. IVUS: See addendum. CONCLUSION: 1. Severe 3-vessel disease with patent VARGAS to the LAD, occluded vein graft to the RCA, chronic, occlusion of the vein graft the circumflex, known occluded in 2014. Progression of left main. Successful protected left main stenting with adequate apposition and expansion by IVUS. 2. Mild aortic stenosis by pull back. 3. 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 4. Successful Angio-Seal right common femoral artery. [id number]/[facility] #: [id number] SWETA
--- NOTE | 2017-12-01 16:39 | CATH ---
IVUS REPORT: ADDENDUM: Please addend this to the cath report. Initial IVUS evaluation revealed coverage of the ostium of the left main and under expansion of the left main stent in several areas. After higher pressure balloon post dilatation, IVUS evaluation revealed distal reference area of 6.72 sq mm, 2.6 x 3.1 mm. The minimal luminal area within the circumflex stent was 6.7 sq mm, 2.5 x 3.2 mm with 1 quadrant of calcification. All stents were opposed. The minimal luminal area within the left main was in the proximal left main, was 8.34 sq mm, 2.7 x 3.8 mm with 2 quadrants of calcification. IVUS demonstrated adequate expansion and apposition. [id number]/[facility] #: [id number] SWETA
[2017-12-01] MEDS: Atorvastatin* 80 MG TAB PO SCH (16:46)
[2017-12-01] MEDS ORDERED: Metoprolol Tartrate TAB* 25 MG PO SCH (22:00)
[2017-12-02] MEDS ORDERED: Metoprolol Succinate XL TAB* 50 MG PO SCH (09:00)
[2017-12-02] MEDS: Ticagrelor* 90 MG TAB PO SCH (09:19)
[2017-12-02] MEDS: Aspirin 81 mg CHEW TAB* 81 MG TAB.CHEW PO SCH (09:19)
[2017-12-02] MEDS: Lisinopril TAB* 10 MG PO SCH (09:19)
[2017-12-02 12:03] VITALS: BP 160/73
--- NOTE | 2017-12-02 21:09 | DS ---
CC: Dr. Varghese; Dr. Stokes* DISCHARGE SUMMARY: DATE OF ADMISSION: 11/29/17 DATE OF DISCHARGE: 12/02/17 PRIMARY CARE PHYSICIAN: Dr. Varghese at [place]. SWIMMING POOL INSTALLER: Dr. Stokes at [place]. DISCHARGE DIAGNOSES: 1. Inferior wall ST elevation infract. 2. Previous bypass grafting. 3. Aortic stenosis, mild to moderate. 4. Tobacco use. 5. Hypertension. 6. Hyperlipidemia. 7. Thrombocytopenia. CONDITION ON DISCHARGE: Stable. PROCEDURES: Cardiac cath, right femoral access, IVUS guided stent placement left main and proximal circumflex with 3.5 x 16 and 3.0 x 8 Synergy eluting stents respectively. Echocardiogram. DISCHARGE MEDICATIONS: 1. Aspirin 81 mg daily. 2. Lipitor 80 mg daily. 3. Lisinopril 20 mg b.i.d. 4. Toprol-XL 50 mg daily. 5. Nitroglycerin 0.4 sublingual p.r.n. 6. Brilinta 90 mg b.i.d. 7. To resume his HydroDIURIL 25 mg daily. FOLLOWUP: Follow up with Dr. Stokes next week as scheduled. ACTIVITY: No strenuous exertion for 1 week. To walk daily. To not lift more than 10 to 15 pounds for 1 week. WOUND CARE: Shower only for 3 days. HISTORY: See H and P. LABORATORY DATA/DIAGNOSTIC STUDIES: His troponin peaked at 0.42 consistent with a very small infarct, BNP was 141. His cholesterol was high at 211 on admission with triglycerides 104, LDL 160, HDL 30.7, per the patient, he has been on Lipitor only for a few weeks. Direct LDL was 160. His hemoglobin A1c was 5.7, minimally elevated. Random blood sugars were in the 140 to 160s. His presenting creatinine was 1.2, but subsequently normalized to 0.89, GFR 85. His CK-MB peaked at 119.8. Total CPK 1075. Consistent with his inferior infarct superimposed on a prior inferior infarct. EKG today reveals sinus rhythm at 57, inferior Q waves, and persisting [address] depression in 1, aVL, V5, V6. HOSPITAL COURSE: He presented with an inferior ST elevation infarct with complex prior cardiac history. He underwent cardiac cath via the femoral approach, with three-vessel disease with patent VARGAS to the LAD, occluded chronic vein graft to the RCA, clinically occluded vein graft to the circumflex and progression of his left main disease with probably a codominant circumflex system. 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 He has successful protected left main stenting with IVUS guidance as above. Postprocedure, he had no recurrence of chest pain, no arrhythmias, no heart failure symptoms. His echocardiogram suggested significant aortic stenosis, but on pull back he had at most 5 mm peak -to-peak aortic valve gradient. Transthoracic echo documented LV systolic dysfunction with EF of 30 to 35%. As he was hypertensive, his PENNY inhibitor dose was increased, beta-kate was added. His meds for LV systolic dysfunction will be titrated on an outpatient basis. He is fully ambulatory, has not had any groin issues. He has no dyspnea. On the day of discharge, his blood pressure is 160/73, heart rate is 56, sinus bradycardia. His lungs are clear, he has a mid peaking systolic ejection murmur. The right groin is without hematoma. He has palpable pedal pulse and no edema. He received full discharge instructions. [id number]/[facility] #: [id number] [facility]
== END 2017-12-02 13:45 | disposition home or self-care (01) | DRG 247 ==
LOC: ED 07:39 → CHICATH 08:10 → ICU 10:19 → MEDTELE 11-30 17:39
PROVIDERS: ADMIT Internal Medicine Cardiovascular Disease; ATTEND Internal Medicine Cardiovascular Disease
PROC: 027135Z Dilation of Coronary Artery, Two Arteries with Two Drug-eluting Intraluminal Devices, Percutaneous Approach (ICD-10-PCS; 2017-11-29)
PROC: B2111ZZ Fluoroscopy of Multiple Coronary Arteries using Low Osmolar Contrast (ICD-10-PCS; 2017-11-29)
PROC: B2131ZZ Fluoroscopy of Multiple Coronary Artery Bypass Grafts using Low Osmolar Contrast (ICD-10-PCS; 2017-11-29)
PROC: B2181ZZ Fluoroscopy of Left Internal Mammary Bypass Graft using Low Osmolar Contrast (ICD-10-PCS; 2017-11-29)
PROC: B240ZZ3 Ultrasonography of Single Coronary Artery, Intravascular (ICD-10-PCS; 2017-11-29)
PROC: 4A023N7 Measurement of Cardiac Sampling and Pressure, Left Heart, Percutaneous Approach (ICD-10-PCS; principal; 2017-11-29 08:00)
DX: I21.19 ST elevation (STEMI) myocardial infarction involving other coronary artery of inferior wall (principal); I25.810 Atherosclerosis of coronary artery bypass graft(s) without angina pectoris; E78.5 Hyperlipidemia, unspecified; I10 Essential (primary) hypertension; F17.210 Nicotine dependence, cigarettes, uncomplicated; M25.512 Pain in left shoulder; D69.6 Thrombocytopenia, unspecified; N28.9 Disorder of kidney and ureter, unspecified; I25.84 Coronary atherosclerosis due to calcified coronary lesion; I35.0 Nonrheumatic aortic (valve) stenosis; Z79.02 Long term (current) use of antithrombotics/antiplatelets; Z95.5 Presence of coronary angioplasty implant and graft; Z82.3 Family history of stroke; Z82.49 Family history of ischemic heart disease and other diseases of the circulatory system; I25.2 Old myocardial infarction; Z91.14 Patient's other noncompliance with medication regimen; Z79.82 Long term (current) use of aspirin
CPT/HCPCS: 36415; 71045; 80048; 80053; 80061; 82550; 82553; 83036; 83605; 83721; 83880; 84484; 85025; 85060; 85347; 85610; 85730; 87641; 93005; 93306; 99156; 99157; 99285; A9270-GY; C1725; C1769; C1876; C1887; C8929; C9606-LM; J1644; J2250; J2270; J2405; J3010; J3490

== ENCOUNTER 2017-12-05 16:30 | Inpatient (IN) | payer MEDICARE ==
[2017-12-05] MEDS ORDERED: NS 0.9% 1000 ML* 1,000 ML IV ONE (16:31)
--- NOTE | 2017-12-05 16:45 | ED ---
Neurological HPI - HPI Summary HPI Summary: This is scribe Ave Acosta documenting for attending Ti Alan MD. This patient is a 67 year old M BIBA to [facility] accompanied by his and children due to left sided weakness beginning between 1400 and 1430. Patient states he noticed the left sided weakness and dizziness after driving home after walking the park. Patient had a STEMI with stents placed about a week ago. I, Dr. Alan, personally performed the services described in this documentation as scribed in my presence and it is both accurate and complete. - History of Current Complaint Stated Complaint: code carter Time Seen by Provider: 12/05/17 16:31 Hx Obtained From: Patient Onset/Duration: Sudden Onset Timing: Constant Neurological Deficit Location: Facial, LUE, LLE Character: Other: - left sided weakness Episode Lasting: Seconds/Minutes - since 1400 Associated Signs and Symptoms: Positive: Weakness - left sided - Additional Pertinent History Primary Care Physician: [id number] - Allergy/Home Medications Allergies/Adverse Reactions: Allergies Allergy/AdvReac Type Severity Reaction Status Date / Time No Known Allergies Allergy Verified 11/29/17 07:53 PMH/Surg Hx/FS Hx/Imm Hx Endocrine/Hematology History: Denies: Hx Diabetes, Hx Sickle Cell Disease Cardiovascular History: Reports: Hx Hypercholesterolemia, Hx Hypertension, Hx Myocardial Infarction - with stent placement History: Denies: Hx Dialysis Sensory History: Reports: Hx Contacts or Glasses Denies: Hx Legally Blind, Hx Deafness, Hx Hearing Aid Opthamlomology History: Reports: Hx Contacts or Glasses Denies: Hx Legally Blind Psychiatric History: Denies: Hx Schizophrenia - Surgical History Surgery Procedure, Year, and Place: CABG, 4x stent 04/1999 in [place]. - Family History Known Family History: Positive: Cardiac Disease, Other - CVA - Social History Alcohol Use: None Hx Substance Use: No Substance Use Type: Reports: None Hx Tobacco Use: Yes Smoking Status (MU): Current Every Day Smoker Review of Systems Negative: Fever Neurological: Other - dizziness Positive: Weakness - left sided All Other Systems Reviewed And Are Negative: Yes Physical Exam - Summary Physical Exam Summary: VITAL SIGNS: Reviewed. GENERAL: Patient is a well-developed and nourished male who is lying comfortable in the stretcher. Patient is not in any acute respiratory distress. HEAD AND FACE: No signs of trauma. No ecchymosis, hematomas or skull depressions. No sinus tenderness. EYES: PERRLA, EOMI x 2, No injected conjunctiva, no nystagmus. No photophobia. EARS: Hearing grossly intact. Ear canals and tympanic membranes are within normal limits. MOUTH: Oropharynx within normal limits. NECK: Supple, trachea is midline, no adenopathy, no JVD, no carotid bruit, no c- spine tenderness, neck with full ROM. No meningeal signs, no Kernig's or brudzinskis signs. CHEST: Symmetric, no tenderness at palpation LUNGS: Clear to auscultation bilaterally. No wheezing or crackles. CVS: Regular rate and rhythm, S1 and S2 present, no murmurs or gallops appreciated. ABDOMEN: Soft, non-tender. No signs of distention. No rebound no guarding, and no masses palpated. Bowel sounds are normal. EXTREMITIES: FROM in all major joints, no edema, no cyanosis or clubbing. NEURO: Alert and oriented x 3. Speech is normal and follows commands. Left sided weakness and left facial droop. SKIN: Dry and warm GCS: 15 Triage Information Reviewed: Yes Vital Signs Reviewed: Yes Diagnostics - Laboratory Result Diagrams: 12/06/17 06:21 12/06/17 06:21 Lab Statement: Any lab studies that have been ordered have been reviewed, and results considered in the medical decision making process. - Radiology CXR Radiology Interpretation Completed By: Radiologist - POSTOPERATIVE CHANGE. NO ACTIVE DISEASE. ED Physician has reviewed this report. - CT Brain CT CT Interpretation Completed By: Radiologist - No acute intrarenal findings Findings called to ED at 1645 hours ED Physician has reviewed this report. Head/Neck CTA CT Interpretation Completed By: Radiologist - NO EVIDENCE OF ANEURYSM, SIGNIFICANT STENOSIS, OR BRANCH OCCLUSION. ED Physician has reviewed this report. - EKG 1659 Cardiac Rate: NL - 70 Bpm EKG Rhythm: Sinus Rhythm EKG Interpretation: ST depression in lead I aVR, v4-v6, T wave inversion in v5 & v6 NIH Scale - NIH Scale Level of Consciousness: Alert/Keenly Responsive Ask Patient the Month and His/Her Age: Both Correct Ask Pt to Open/Close Eyes and Cab Worker/Release Non-Paretic Hand: Both Correctly Best Gaze (Only Horizontal Eye Movement): Normal Visual Field Testing: No Visual Loss Facial Paresis-Pt to Smile & Close Eyes or Grimace Symmetry: Minor Paralysis Motor Function - Right Arm: No Drift-Holds 10 Seconds Motor Function - Left Arm: Drifts LT 10 seconds Motor Function - Right Leg: No Drift-Holds 10 Seconds Motor Function - Left Leg: Drifts LT 10 seconds Limb Ataxia-Must be out of Proportion to Weakness Present: Present in One Limb Sensory (Use Pinprick to Test Arms/Legs/Trunk/Face): Normal Best Language (Describe Picture, Name Items): No Aphasia Dysarthria (Read Several Words): Normal Extinction and Inattention: No Abnormality Total Score: 4 Course/Dx - Course Course Of Treatment: Jose Cruz torrez called at 16:06 with eta of [address] Harvey arrived in in the ED at 1627. The patient arrived at the ED and went to CT at 1632. Dr. Frias, from radiology, reports Brain CT is negative at 1645. Patient arrived back to his room at 1650. Dr. Harvey requests to speak with [facility] at 1652. Dr. Frias reports Head/Neck CTA is negative at 1710. Dr. Coker discussed case Neuro from [place] and states that stents are not a contraindication for TPA; however, patients last platlets were 78 which is less than 100 and is a contraindication for TPA. Discussed at 1717. I called the lab for patients platlet count, which is 85 today; therefore TPA will not be administed at 1723. Patient is admitted to Dr. France at 1726. Dr. Harvey had requested a head/neck CTA before labs since patient had a STEMI with stents about a week ago. =========. This patient is a 59-year-old male with past medical history significant for and a STEMI on 11/29/17 and coronary artery disease. He presents since today with a chief complaint of having and left-sided weakness and left facial droop. Code carter was started. As the patient arrived Dr. Reyes was present. He recommended head CT and the CTA head and neck. Head CT impression no acute intracranial pathology. CT of head and neck: Negative study. Dr. Harvey and I discussed the case and he recommends no TPA since the platlet count is less than 100 therefore he is not a candidate for TPA. At this point he recommends for the patient to be admitted to the hospital services and for workup of a CVA. Patient took a baby aspirin and brilinta. I discussed my physical exam, findings and test results with Dr. France accepted the patient for admission. The patient is hemodynamically stable alert oriented 3. - Diagnoses Provider Diagnoses: Ischemic cerebrovascular accident (CVA) During the Visit The Following Alert/Code Occurred: Code Torrez - at 16:06 eta of 10 minutes - Critical Care Time Critical Care Time: 75-104 min Discharge - Sign-Out/Discharge Documenting (check all that apply): Patient Departure - admit - Discharge Plan Condition: Stable Disposition: ADMITTED TO [facility] - Billing Disposition and Condition Condition: STABLE Disposition: Admitted to [facility]
--- NOTE | 2017-12-05 16:48 | RAD ---
INDICATION: Code carter COMPARISON: CT brain November 14, 2010 TECHNIQUE: Noncontrast axial source images were acquired from the skull base to the vertex. FINDINGS: Ventricles/sulci: The ventricles and cisterns are normal in size and configuration for age. Brain parenchyma: There is no focal parenchymal finding, evidence of intracranial mass, or intracranial mass effect. Intracranial hemorrhage:None. Extra-axial spaces: There are no abnormal extra axial fluid collections or evidence of extra-axial mass. Calvarium: There is no calvarial fracture or other calvarial abnormality. Scalp: There is no evidence of scalp or extracalvarial soft tissue abnormality. Paranasal sinuses/mastoid: The paranasal sinuses and mastoid air cells are clear. Other: None. IMPRESSION: No acute intrarenal findings Findings called to ED at 1645 hours
[2017-12-05] MEDS ORDERED: Iodixanol* (CONTRAST) 320 MG/ML 100 ML SDV IV ONE (17:05)
--- NOTE | 2017-12-05 17:14 | RAD ---
INDICATION: Left-sided weakness COMPARISON: CT brain same date TECHNIQUE: Axial source images were acquired with coronal and sagittal reconstructions. CT angiographic technique was utilized with injection of 80 mL Visipaque 320. FINDINGS: Aortic arch: There are moderate osteoarthritic changes of the arch or the great vessels arising from the arch. Right carotid: The common carotid artery, carotid bifurcation, extracranial portions of the internal carotid artery, carotid artery at the skull base, carotid siphon, and carotid termination appear patent. There is a 60% diameter stenosis. Left carotid:The common carotid artery, carotid bifurcation, extracranial portions of the internal carotid artery, carotid artery at the skull base, carotid siphon, and carotid termination appear patent. There is moderate calcific plaque at the bifurcation with a 50% diameter stenosis.. Right middle and anterior cerebral arteries: There are no CT angiographic abnormalities of the middle or anterior cerebral arteries. Left middle and anterior cerebral arteries: There are no CT angiographic abnormalities of the middle or anterior cerebral arteries Right vertebral: The CT angiographic appearance of the vertebral artery is normal. Left vertebral: The CT angiographic appearance of the vertebral artery is normal. Basilar artery: The basilar artery and basilar tip appear normal. Posterior cerebral arteries: The distal distribution of the right and left posterior cerebral arteries is normal. Telida of Delgado: The CT angiographic appearance of the point hope ira of Delgado is normal. Source images show no evidence of mass or adenopathy within the neck. There are no focal brain parenchymal abnormalities or abnormal areas of enhancement. IMPRESSION: NO EVIDENCE OF ANEURYSM, SIGNIFICANT STENOSIS, OR BRANCH OCCLUSION. CPT II Codes: 3100F PQRS
[2017-12-05] MEDS ORDERED: ALTEPLASE IV ONE ×2 (17:19)
[2017-12-05 17:22] LABS: ABS Basophils 0.1 10^3/ul (0-0.2); ABS Eosinophils 0.2 10^3/ul (0-0.6); ABS Lymphocytes 0.8 10^3/ul (1.0-4.8); ABS Monocytes 0.6 10^3/ul (0-0.8); ABS Neutrophils 4.7 10^3/ul (1.5-7.7); ABS Nucleated RBC 0 10^3/ul; Eosinophil % 2.6 % (0-6); Hematocrit 45 % (42-52); Hemoglobin 15.3 g/dl (14.0-18.0); Lymphocyte % 13.1 % (25-47); Mean Corpuscular HGB Conc 34 g/dl (31-36); Mean Corpuscular Hemoglobin 29 pg (27-31); Mean Corpuscular Volume 87 fL (80-94); Mean Platelet Volume 9.3 um3 (7.4-10.4); Nucleated Red Blood Cells % 0; Platelet Count 85 10^3/ul (150-450); Red Blood Count 5.23 10^6/ul (4.00-5.40); Red Cell Distribution Width 14 % (10.5-15); White Blood Count 6.3 10^3/ul (3.5-10.8)
[2017-12-05 17:24] LABS: INR 1.06 (0.77-1.02)
--- NOTE | 2017-12-05 17:24 | RAD ---
INDICATION: Change in mental status COMPARISON: November 29, 2017 TECHNIQUE: An AP portable view obtained at 1704 hours is submitted. FINDINGS: Bones/Soft Tissues: There are no acute bony findings. There is sternotomy Cardiomediastinal: The cardiomediastinal silhouette is normal. Lungs: There are no infiltrates. There is mild hyperinflation Pleura: There are no pleural effusions. Other: None IMPRESSION: POSTOPERATIVE CHANGE. NO ACTIVE DISEASE.
[2017-12-05] MEDS ORDERED: Nitroglycerin TAB 0.4 MG* 0.4 MG TAB SL PRN (18:33)
[2017-12-05] MEDS ORDERED: Albuterol/Ipratropium NEB.SOL* Albuterol 2.5 MG/Ipratropium 0.5 MG 3 ML INH PRN (19:05)
--- NOTE | 2017-12-05 19:22 | CONS ---
CONSULTATION REPORT: DATE OF CONSULT: 12/05/2017. PATIENT OF: Dr. Molina and Dr. Alan. HISTORY OF PRESENT ILLNESS: This is a 67-year-old right-handed man, who was recently in for inferior wall LA, status post stent and it was initially done on 12/01/17. He has had previous bypass grafting and history of aortic stenosis mild to moderate, tobacco use, hypertension, hyperlipidemia, and thrombocytopenia. He, then, at between 2 and 2:30 today noticed some left- sided weakness and incoordination with some difficulty walking, he also felt a little lightheaded. MEDICATIONS: Include: 1. Aspirin 81 mg daily. 2. Lipitor 40 mg daily. 3. Lisinopril 20 mg b.i.d. 4. Toprol-XL 50 mg daily. 5. Nitroglycerin 0.4 sublingual p.r.n. 6. Brilinta 90 mg b.i.d. 7. He is on HydroDIURIL 25 mg daily. ALLERGIES: He has no allergies. SOCIAL HISTORY: He does not drink or use drugs. He is a smoker. REVIEW OF SYSTEMS: He has had no prior stroke or TIA. Review of systems is negative in all 14 spheres other than HPI. PHYSICAL EXAM: Pulse 58, respirations 20, blood pressure 148/84. It had been as low as 73 earlier and we are giving fluids. He is alert and oriented with normal speech and comprehension. Cranial nerves II through XII were intact and normal other than a mild left facial weakness. Strength was trace weak in arm and leg with slight pronator drift in arm and leg and slight past pointing on left arm and left leg is little bit clumsy [id number]. Right side was strong and intact. Reflexes were 1 and equal. There were no sensory deficits to touch or double simultaneous stimulation. Visual rahman were intact. Speech was normal and the NIH Stroke Scale was normal for speech. His overall NIH Stroke Scale was 5. DIAGNOSTIC STUDIES/LAB DATA: His CTA was negative. His CT scan was normal and I reviewed it. His labs include platelet count of 88,000. We do not have full labs at this point up in the computer, we have called down for that. IMPRESSION AND PLAN: His platelet count precludes tPA. I checked with Dr. Jensen regarding the recent stent and myocardial infarction. He is not a candidate for clot retrieval since he does not have large vessel occlusion. So , he will be admitted to the floor. We are running fluids in because his blood pressure has been a little low. We will continue his medications other than his antihypertensives at this point and we will be getting an MRI and fasting lipid and we will decide on how much further aggressive to be with his LDL. He has already been advised to stop smoking. Thank you for sharing his case. [id number]/[facility] #: [id number] SWET[facility]
[2017-12-05] MEDS: Nicotine PATCH 21 MG/24 HR* PATCH TRANSDERM SCH (20:10)
[2017-12-05] MEDS: Nicotine Patch Removal NOTE PATCH OFF SCH (20:11)
[2017-12-05] MEDS: Ticagrelor* 90 MG TAB PO SCH (20:22)
[2017-12-05] MEDS: Lisinopril TAB* 10 MG PO SCH (20:22)
--- NOTE | 2017-12-05 21:00 | HP ---
HISTORY AND PHYSICAL: ADDENDUM: IMPRESSION AND PLAN: Current tobacco use. The patient was counseled extensively on his 1 pack per d ay smoking. I have offered him a nicotine patch. We talked very seriously and at length regarding h is current smoking status, his coronary artery disease, and now his stroke. We discussed the risks o f continued tobacco use and explained to the patient that cessation is really his only option. At th is point, given his extensive cardiac disease and now new stroke, the patient states his understandin g. His family is also at the bedside and in agreement the patient to quit. The patient was offered a nicotine patch, which will be ordered 21 mg daily. LAURA UGALDE, HEALTH PROMOTION COORDINATOR [id number]/[facility] #: [id number]
--- NOTE | 2017-12-05 21:07 | HP ---
CC: Dr. Vero Lovelace; Dr. Stokes; Dr. Maida Molina, Interventional Cardiology; Dr. Varghese from Primary Care* ADMISSION HISTORY AND PHYSICAL: DATE OF ADMISSION: 12/05/17 PRIMARY CARE PROVIDER: Dr. Armand Varghese. PRIMARY SCRUBBER OPERATOR: Dr. Stokes. MY ATTENDING FOR TODAY AND ATTENDING FOR THIS ADMISSION: Dr. Vero Lovelace* ( dictated by Laura Henry, RIYA). CHIEF COMPLAINT: Slurred speech and left-sided weakness and inability to ambulate. HISTORY OF PRESENT ILLNESS: This is a 67-year-old male patient who was just recently discharged from the hospital on 12/03/17 after having an inferior wall ST elevation MO. The patient does have a very longstanding history of coronary artery disease. He has had CABG in the past with some restenosis of vessels. He has a history of aortic stenosis, which is mild to moderate; hypertension; chronic thrombocytopenia; hyperlipidemia; and current tobacco use. The patient was at home recovering from his most recent stents. Per the records, stent was placed in the left main and proximal circumflex. Two stents were deployed. The patient was cleared for discharge by Cardiology shortly thereafter and he was recovering very well, not having any complaints when he suddenly began to have this slurred speech and left-sided weakness. Emergency services were called. The patient came to the ER and a yenni carter was called. The patient had CT of the head, CTA also of the head and neck. He did not have any large vessel occlusion and does not show any acute infarct at this time; however, he does still appear to have his left-sided deficit, although it is somewhat improved from his initial presentation. 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 As such, the patient will be admitted for MRI and Physical Therapy evaluation, swallow evaluation, and continued medical optimization. PAST MEDICAL HISTORY: As above. MEDICATIONS: At home include: 1. Hydrochlorothiazide 25 mg daily. 2. Atorvastatin 80 mg daily. 3. Aspirin 81 mg daily. 4. Nitroglycerin 0.4 mg sublingual as needed. 5. Metoprolol succinate XL 50 mg daily. 6. Lisinopril 10 mg 2 times a day. 7. Brilinta 90 mg p.o. 2 times daily. ALLERGIES: He has no known drug allergies. FAMILY HISTORY: Significant for coronary artery disease. SOCIAL HISTORY: Again as stated, tobacco use for 45 years, 1 pack per day. The patient denies any illicit drug use, alcohol is only social. REVIEW OF SYSTEMS: The patient denies any fever, fatigue, or chills. No malaise. He denies any visual disturbances. No headache. No blurred vision. He does feel like he is yawning a lot. He does not have any tingling in the face currently, although it was noted upon arrival, he did feel some facial tingling and asymmetry. He does feel weaker in his left personnel generalist manager and feels some general paresthesias, but no pain and also some weakness in the left lower extremity. He denies any further constitutional complaints. PHYSICAL EXAMINATION GENERAL: The patient is alert, well-appearing, in no acute distress. VITAL SIGNS: Blood pressure is 159/79, heart rate 61. He is in regular sinus rhythm to sinus mine, respiratory rate between 14 and 18, O2 saturation 97% on 2 L nasal cannula. HEENT: The patient is atraumatic, normocephalic. PERRLA with nonicteric sclerae. He does wear eyeglasses. His oral mucosa is moist. He does have a left-sided facial droop. He is otherwise atraumatic. His smile is asymmetric. He can puff cheeks and raise eye brows equally. NECK: Supple, nontender. No JVD noted. No carotid bruit auscultated. LUNGS: He is clear on the right. He has an expiratory wheeze on the left. CARDIOVASCULAR: S1, S2 present. No gallops or rubs noted. He does have a murmur grade 2/6 systolic. ABDOMEN: Soft, nontender, nondistended. Positive bowel sounds in all 4 quadrants. : Deferred. MUSCULOSKELETAL: There was no clubbing, no cyanosis, no edema. He is able to plantarflex and dorsiflex on the left lower extremity. He does have some weakness to gravity on the left lower extremity and a slightly weaker personnel generalist manager of the left hand. Otherwise, he has no pronator drift and no further focalities. He did pass his dysphagia screening. PSYCHIATRIC: He is calm, cooperative, and appropriate. DIAGNOSTIC STUDIES/LAB DATA: Laboratories: WBC 6.3, RBC 5.23, hemoglobin 15.3 , hematocrit 45, platelets 85. INR 1.06. Sodium 137, potassium 3.9, chloride 107, CO2 of 26, BUN 22, creatinine 0.97, GFR is 77, glucose 124, lactic acid 1.0 , calcium 8.8. Bilirubin 0.60, AST 18, ALT 21, alk phos 78. Troponin is 0.70. Protein 6.4, albumin 3.8, globulin 2.6. Triglycerides 101, cholesterol 112, LDL 70, HDL 21.8. Imaging: Chest x-ray today revealed postoperative changes, sternotomy wires in place with no active cardiopulmonary disease. CTA of the head shows no evidence of aneurysm, significant stenosis, or branch occlusion. Brain CT also shows no acute intracranial pathology. ASSESSMENT: This is a 67-year-old male who is status post myocardial infarction with stenting, released from the hospital 3 days ago, who now presents with what is likely an acute cerebrovascular accident. PLAN: The patient will be admitted to Medical Service. DIAGNOSES: 1. Cerebrovascular accident. The patient is already optimized on aspirin, statin, and is currently taking Brilinta. Per guidelines, the patient is not able to receive t-PA due to chronic thrombocytopenia. The patient's symptoms do seem to be improving. We will do an MRI in the morning and look for any acute infarct. There was no large vessel occlusion noted on CAT scan. We will get a Physical Therapy and Occupational Therapy evaluation. He did pass his bedside swallow eval and symptoms appear to be improving. 2. For his recent ST elevation myocardial infarction and coronary artery disease, his troponin is slightly bumped at 0.7; however, the patient is denying any shortness of breath, no chest pain, and no anginal components. I feel this is probably a demand ischemia given the new cerebrovascular accident. We will continue to trend the troponin. 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 This will continue to be monitored on telemetry. 3. For his hypertension, we will continue him on hydrochlorothiazide, lisinopril 2 times a day and metoprolol. His blood pressure is currently stable. 4. For his hyperlipidemia, he is on maximum statin therapy with Lipitor at 80 mg in the evening. This will be continued. We will follow his labs in the morning, CMP, and BMP. I have ordered transthoracic echocardiogram, to do a bubble study. His echo dated 12/02/17 did not mention a patent foramen ovale and a bubble study was not performed. So, we will do a transthoracic echo and evaluate for patent foramen ovale as a possibility for this new embolic event. 5. Diet. He can have heart-healthy diet with decaffeinated products. 6. DVT prophylaxis. The patient at this point is ambulatory and he is already with low platelets, so heparin would be contraindicated. We can place him on SCDs if he is in bed. 7. For ambulation, his weakness seems to be resolving. He can be out of bed ad kimmy with assistance. 8. Code status. He is a full code. His healthcare proxy is Kaia Foster, his significant other, also his daughter, Mariajose Quigley, may be contacted as well for any changes in the patient's status. Rest of the patient's course will be determined by further diagnostics, laboratories, any additional testing, or input from other subspecialties as warranted during this admission. We will continue to monitor the patient closely. TIME SPENT: I have spent approximately 60 minutes on this evaluation admitting the patient, [id number] in examination and reviewing his most recent chart, history. I have discussed his plan of care with Dr. Lovelace, my attending for today , and she is in agreement with the plan. LAURA HENRY NP ADDENDUM TO HISTORY AND PHYSICAL: IMPRESSION AND PLAN: Current tobacco use. The patient was counseled extensively on his 1 pack per day smoking. I have offered him a nicotine patch. We talked very seriously and at length regarding his current smoking status, his coronary artery disease, and now his stroke. We discussed the risks of continued tobacco use and explained to the patient that cessation is really his only option. At this point, given his extensive cardiac disease and now new stroke, the patient states his understanding. His family is also at the bedside and in agreement the patient to quit. The patient was offered a nicotine patch, which will be ordered 21 mg daily. LAURA HENRY, RIYA [id number]/[facility] #: [id number]/[facility] #: [id number] [facility]PITALYaneth
--- NOTE | 2017-12-05 21:33 | RAD ---
Addendum created by Kaushik Zee DO on 12/05/2017 10:35:37 PM EDT This is an addendum to prior report on MRI brain dated 12/05/2017 at 8:44 PM. The acute infarct in the right tamara measures 1.9 x 1 cm(APxT). Addendum created by Kaushik Zee DO on 12/05/2017 10:31:20 PM EDT THIS REPORT CONTAINS FINDINGS THAT MAY BE CRITICAL TO PATIENT CARE. The findings were verbally communicated via telephone conference with [employer] Yeny Henry at 10:31 PM EDT on 12/05/2017. The findings were acknowledged and understood. Initial report created on 12/05/2017 9:33:30 PM EDT EXAM: MR Head Without Intravenous Contrast CLINICAL HISTORY: 67 years old, male; Signs and symptoms; Speech disturbance and weakness, extremity; Left; Slurred speech; Patient HX: C/O left sided weakness w/ slight slurred speech since 1400 today; Additional info: CVA TECHNIQUE: Magnetic resonance images of the head/brain without intravenous contrast in multiple planes. COMPARISON: No relevant prior studies available. FINDINGS: Brain: Acute infarct of the right tamara. Mild chronic microvascular ischemic changes. No hemorrhage. Ventricles: Unremarkable. No ventriculomegaly. Bones/joints: Unremarkable. Sinuses: Unremarkable as visualized. No acute sinusitis. Mastoid air cells: Unremarkable as visualized. No mastoid effusion. Orbits: Unremarkable as visualized. Other findings: No hemorrhage. IMPRESSION: Acute infarct of the right tamara. No hemorrhage.
--- NOTE | 2017-12-05 22:42 | PN ---
Hospitalist Progress Note Date of Service: 12/05/[address] Zee at [facility]. MRI of brain reveals right pontine infarct, large, as per radiologist. Call out to Dr. Bauman. Recommends bedrest and IVF to preserve posterior circulation. Discussed with Mary, primary RN. Family has left for the night, patient is not aware of diagnosis, recommend discussing this with him with family present tomorrow. Patient currently stable with o acute changes in neuro status.
[2017-12-05] MEDS: NS 0.9% 1000 ML* 1,000 ML IV SCH (22:57)
[2017-12-06 06:39] LABS: ABS Basophils 0.1 10^3/ul (0-0.2); ABS Eosinophils 0.2 10^3/ul (0-0.6); ABS Monocytes 0.6 10^3/ul (0-0.8); ABS Nucleated RBC 0 10^3/ul; Hematocrit 42 % (42-52); Hemoglobin 14.5 g/dl (14.0-18.0); Lymphocyte % 17.3 % (25-47); Mean Corpuscular HGB Conc 35 g/dl (31-36); Mean Corpuscular Hemoglobin 30 pg (27-31); Mean Corpuscular Volume 86 fL (80-94); Mean Platelet Volume 9.3 um3 (7.4-10.4); Nucleated Red Blood Cells % 0.1; Platelet Count 79 10^3/ul (150-450); Red Blood Count 4.88 10^6/ul (4.00-5.40); Red Cell Distribution Width 13 % (10.5-15); White Blood Count 5.9 10^3/ul (3.5-10.8)
[2017-12-06 06:54] LABS: EGFR Non-African American 97.5 (>60)
--- NOTE | 2017-12-06 07:50 | PN ---
<Lita Alanis - Last Filed: 12/06/17 17:44> Subjective Interval History: Case reviewed and d/w Arianne Sherman ELECTRIC MULE OPERATOR. Patient was admitted with right tamara CVA. Neurology recommended monitoring in ICU as his CVA appears to be evolving. Case gets more complicated as patient had a stent recently placed to LAD, now comes with a CVA, but also has thrombocytopenia (79k today). D/w Cardiology ( Dr. Higginbotham) - ideally would prefer 300mg Plavix load, but understands this may increase risk of bleeding. Also d/w Hematology (Dr. Pearce) and Neurology ( Dr. Harvey)- conclusion is will load with 150mg of Plavix and then continue Plavix 75mg/day. Patient is aware of risk of bleeding, but his CVA is small, and without APT he would be at risk for stent thrombosis and further neurological events. D/w Arianne Sherman ELECTRIC MULE OPERATOR. Objective Active Medications: Albuterol/Ipratropium (Duoneb (Albuterol 2.5 Mg/Ipratropium 0.5 Mg)) 1 neb INH Q6H PRN PRN Reason: SOB/WHEEZING Aspirin (Ecotrin Ec Tab*) 325 mg PO DAILY [facility] Atorvastatin Calcium (Lipitor*) 80 mg PO 1700 [facility] Clopidogrel Bisulfate (Plavix Tab*) 300 mg PO ONCE ONE Stop: 12/06/17 21:01 Clopidogrel Bisulfate (Plavix Tab*) 75 mg PO DAILY [facility] Sodium Chloride (Ns 0.9% 1000 Ml*) 1,000 mls @ 75 mls/hr IV PER RATE [facility] Last Admin: 12/06/17 14:06 Dose: 75 mls/hr Nicotine (Nicotine Patch 21 Mg/24 Hr*) 1 patch TRANSDERM DAILY [facility] Last Admin: 12/06/17 09:41 Dose: 1 patch Nitroglycerin (Nitroglycerin Tab 0.4 Mg*) 0.4 mg SL Q5M PRN PRN Reason: ANGINA Pharmacy Profile Note (Nicotine Patch Removal Note*) 1 note PATCH OFF 2100 [facility] Last Admin: 12/05/17 20:11 Dose: Not Given Vital Signs - 8 hr 12/06/17 12/06/17 12/06/17 09:00 09:28 11:15 Temperature 98.4 F Pulse Rate 51 Respiratory 20 18 20 Rate Blood Pressure 181/66 (mmHg) O2 Sat by Pulse 100 97 Oximetry 08/16/18 08/16/18 08/16/18 11:39 15:49 16:00 Temperature 98.1 F 99.2 F 99.2 F Pulse Rate 75 66 Respiratory 20 Rate Blood Pressure 181/82 191/87 (mmHg) O2 Sat by Pulse 100 99 Oximetry Result Diagrams: 12/06/17 06:21 12/06/17 06:21 Assess/Plan/Problems-Billing Assessment: <Arianne Cheatham - Last Filed: 12/06/17 18:58> Subjective Date of Service: 12/06/17 Interval History: Patient examined at the bedside this AM 0830, has developed increased left side weakness since admission yesterday. Left arm with very minimal left hand actuarial associate, only gross motor movements. Left lower leg with drifting noted with straight leg raise, is able to keep off of the bed for 5 seconds. Left side facial droop and tongue deviates to the left. eyebrow raise is equal, diminished shoulder shrug on the left. Pupils equal and reactive to light. Right side hand actuarial associate and leg strength intact. denies any chest pain or shortness of breath. Denies abd pain n/v/d. denies dizziness or headache. Patient reevaluated at 1330 - noted to have increase loss of function to left arm and left leg, slurred speech slightly worse. Patient does remains alert and oriented x 3. Continues to deny chest pain or shortness of breath. denies headache or visual changes. Spoke with Neurology would like to optimize medications with the use of plavix instead of brilinta, continue ASA and transfer the patient to ICU for closer monitoring. Spoke to Dr. Bruno who recommended 300 mg as the current recommendation of converting patient from brilinta to plavix. but given that patients platelet count of 79 today and chronic history of thrombocytopenia it would be acceptable to give [address] Pearce from hematology would advised that given the patients low platelet count he would be at risk of bleeding with any dose of anti- platelet therapy. Case was discussed with Dr. Alanis and the providers mentioned above and conclusion would be to give 150 mg of plavix as the patient is a great risk of developing a clot in his newly placed stents that could result in an HI and his risk of bleeding from the stroke was less. 1800- I discussed with the patient and the family the risks of bleeding in the area of his stroke and the risk of clot formation in the newly placed stent with a lower dose of plavix and the benefit of the higher dose of protecting his newly placed stents and risk of bleeding at the stroke site. Patient is agreeable to proceeding with the recommended dose of 150mg. Family History: Unchanged from Admission Social History: Unchanged from Admission Past Medical History: Unchanged from Admission Objective Active Medications: Albuterol/Ipratropium (Duoneb (Albuterol 2.5 Mg/Ipratropium 0.5 Mg)) 1 neb INH Q6H PRN PRN Reason: SOB/WHEEZING Aspirin (Aspirin 81 Mg Chew Tab*) 81 mg PO DAILY [facility] Atorvastatin Calcium (Lipitor*) 80 mg PO 1700 [facility] Hydrochlorothiazide (Hydrodiuril Tab*) 25 mg PO DAILY [facility] Sodium Chloride (Ns 0.9% 1000 Ml*) 1,000 mls @ 75 mls/hr IV PER RATE [facility] Last Admin: 12/05/17 22:57 Dose: 75 mls/hr Lisinopril (Prinivil Tab*) 20 mg PO BID [facility] Last Admin: 12/05/17 20:22 Dose: 20 mg Metoprolol Succinate (Toprol Xl Tab*) 50 mg PO DAILY [facility] Nicotine (Nicotine Patch 21 Mg/24 Hr*) 1 patch TRANSDERM DAILY [facility] Last Admin: 12/05/17 20:10 Dose: Not Given Nitroglycerin (Nitroglycerin Tab 0.4 Mg*) 0.4 mg SL Q5M PRN PRN Reason: ANGINA Pharmacy Profile Note (Nicotine Patch Removal Note*) 1 note PATCH OFF 2100 [facility] Last Admin: 12/05/17 20:11 Dose: Not Given Ticagrelor (Brilinta*) 90 mg PO BID [facility] Last Admin: 12/05/17 20:22 Dose: 90 mg Vital Signs - 8 hr 12/05/17 12/06/17 12/06/17 23:54 00:05 03:24 Temperature 98.0 F 98.6 F Pulse Rate 51 50 49 Respiratory 20 20 20 Rate Blood Pressure 185/64 167/59 179/68 (mmHg) O2 Sat by Pulse 100 100 Oximetry Oxygen Devices in Use Now: None Appearance: Appears comfortable resting in bed, no acute distress, does continue to have left facial droop, left sided weakness Eyes: No Scleral Icterus Ears/Nose/Mouth/Throat: Clear Oropharnyx, Mucous Membranes Moist Neck: NL Appearance and Movements; NL JVP, Trachea Midline Respiratory: Symmetrical Chest Expansion and Respiratory Effort, Clear to Auscultation Cardiovascular: RRR, No Edema, - - NL JVD , Murmur Abdominal: NL Sounds; No Tenderness; No Distention Extremities: No Edema, No Clubbing, Cyanosis Skin: No Rash or Ulcers Neurological: Alert and Oriented x 3, - - Left arm with very minimal finger movement, only gross motor movement of the left arm, Left leg with drifting with leg raise, pupils equal and reactive to light. right hand actuarial associate strong, right leg strength is strong, tongue deviates to the left, left facial droop, left shoulder weak with shoulder shrug. pupils equal and reactive to light. Nutrition: Taking PO's Result Diagrams: 12/06/17 06:21 18 06:21 Assess/Plan/Problems-Billing Assessment: - Patient Problems (1) CVA (cerebral vascular accident) Current Visit: Yes Status: Acute Code(s): I63.9 - CEREBRAL INFARCTION, UNSPECIFIED SNOMED Code(s): 038647254 Comment: CT/ CTA head no large vessel occulsion Continue statin therapy- this is at the max dose Lipitor 80 mg Continue ASA 81 mg daily Neurology consulted- recommended chnaging brilinta to plavix - with loading dose of 150 mg and then start 75 mg tomorrow. continue ASA at 81 mg. IV hydration and HOB at 15 degrees. transfer to ICU for closer montoring CVA seems to be evolving Maintain SBP 160's- 180's MRI Right tamara infarct PT- pending swallow evaluation - pending (2) Thrombocytopenia Current Visit: Yes Status: Acute Code(s): D69.6 - THROMBOCYTOPENIA, UNSPECIFIED SNOMED Code(s): 266521905 Comment: platelet count today was 79- this appears to be a chronic condition for him dating back to 2010 - patient will be given a loading dose of plavix today d/t changing his brilinta to plavix- spoke to Dr. Pearce who advised that the patient is at risk of bleeding with any dose of plavix. patient again was advised of the risks of bleeding and would like to proceed with the recommeded dose. - consulted hematology- for further evaluation (3) Elevated troponin Current Visit: Yes Status: Acute Code(s): R74.8 - ABNORMAL LEVELS OF OTHER SERUM ENZYMES SNOMED Code(s): 110096059 Comment: Troponin 0.70 down to 0.62 suspect this is related to demand ischemia from his stroke - cardiology consulted for elevated troponin and the need to stop BP medications temporally d/t his stroke and the fact the patient has a recent ST segment elevation HI on 11/29 with 2 stents placed. (4) CAD (coronary artery disease) Current Visit: Yes Status: Acute Code(s): I25.10 - ATHSCL HEART DISEASE OF [place] CORONARY ARTERY W/O ANG PCTRS SNOMED Code(s): 08808093 Comment: Continue ASA , statin, and plavix Patient with new stent placement on 11/29/[address] Bruno about changing brilinta to plavix - current recommendation are to load with 300mg when changing but given his low platlet count of 79 today - it would be acceptable to give 150mg - patient was advised of the risks bleeding associated with this dose and would like to proceed with the recommended dose of 150 mg. (5) HTN (hypertension) Current Visit: Yes Status: Acute Code(s): I10 - ESSENTIAL (PRIMARY) HYPERTENSION SNOMED Code(s): 21803576 Comment: Cardiology has recommended that the patient stop all BP medications and maintain a SBP of 160's to 180's (6) HLD (hyperlipidemia) Current Visit: Yes Status: Acute Code(s): E78.5 - HYPERLIPIDEMIA, UNSPECIFIED SNOMED Code(s): 06983831 Comment: continue Lipitor at 80 mg (7) DVT prophylaxis Current Visit: Yes Status: Acute Code(s): SFJ5223 - SNOMED Code(s): 927022426 Comment: chemical held d/t platelet count of 79 continue SCD's (8) Full code status Current Visit: Yes Status: Acute Code(s): Z78.9 - OTHER SPECIFIED HEALTH STATUS SNOMED Code(s): 224954999 Status and Disposition: inpatient ICU
[2017-12-06] MEDS ORDERED: Aspirin 81 mg CHEW TAB* 81 MG TAB.CHEW PO SCH (09:00)
[2017-12-06] MEDS ORDERED: Metoprolol Succinate XL TAB* 50 MG PO SCH (09:00)
[2017-12-06] MEDS ORDERED: Hydrochlorothiazide TAB* 25 MG PO SCH (09:00)
[2017-12-06] MEDS: Lisinopril TAB* 10 MG PO SCH (09:26)
[2017-12-06] MEDS: Ticagrelor* 90 MG TAB PO SCH (09:40)
[2017-12-06] MEDS: Nicotine PATCH 21 MG/24 HR* PATCH TRANSDERM SCH (09:41)
--- NOTE | 2017-12-06 14:01 | ECHO ---
Amended Report Patient: YARON WHITING [facility] Rec#: [id number] : 1950 Date: 12/06/2017 Age: 67y Height: 183 cm / 72.0 in Weight: 84 kg / 185.1 lbs Sex: M BSA: 2.06 Room#: 439 Admit Date#: 12/05/2017 Type: Inpatient Referring: Yeny Mensah Reading: Austen Beltre DO Transfer Iron Operator: Danisha Braswell,GEETHACS,RDMS CC: Armand Varghese MD Transthoracic Echocardiogram Indication: CVA BP: 179/68 HR: 51 Rhythm: NSR Findings History: STEMI, PCI, CABG, AOV stenosis, smoker, HTN, HLD Technical Comments: The study quality is good. Left Ventricle: The left ventricular chamber size is mildly dilated. Moderate concentric left ventricular hypertrophy is observed. There are multiple regional wall motion abnormalities. There is severely decreased left ventricular systolic function. The estimated ejection fraction is 25-30%. Abnormal left ventricular diastolic function is observed. Left Atrium: The left atrium is moderately dilated. Right Ventricle: The right ventricular chamber size and systolic function are within normal limits. Right Atrium: The right atrium is moderately dilated. Aortic Valve: The aortic valve is trileaflet. The aortic valve leaflets are moderately thickened. Systolic excursion of the aortic valve cusps is reduced. There is a trace of aortic regurgitation. There is severe aortic stenosis. The mean gradient of the aortic valve is 21 mmHg. The aortic valve area, by VTI's, is calculated at 0.78 cm2. dimensionless index 0.23 The highest aortic valve velocity was obtained with the standard probe from the A5C view. Mitral Valve: There is mitral annular calcification. The mitral valve leaflets are mildly thickened. There is trace to mild mitral regurgitation. There is no evidence of mitral stenosis. Tricuspid Valve: The tricuspid valve leaflets are normal. There is trace tricuspid regurgitation. Unable to estimate the right ventricular systolic pressure. Pulmonic Valve: The pulmonic valve appears normal. There is a trace pulmonic regurgitation. Pericardium: There is no significant pericardial effusion. Aorta: The aortic root appears normal. There is no dilatation of the aortic arch. Pulmonary Artery: The main pulmonary artery is not well visualized. Venous: The inferior vena cava appears normal in size. There is an approximate 50% respiratory change in the inferior vena cava dimension. Conclusions The left ventricular chamber size is mildly dilated. Moderate concentric left ventricular hypertrophy is observed. There are multiple regional wall motion abnormalities. There is severely decreased left ventricular systolic function. The estimated ejection fraction is 25-30%. Definity was used to exclude an apical thrombus The left atrium is moderately dilated. The right ventricular chamber size and systolic function are within normal limits. There is low gradient severe aortic stenosis (i.e. truly severe vs. mild or moderate calculated as severe to due low output) The mean gradient of the aortic valve is 21 mmHg. Compared to prior study from 11/30/2017, the mean gradient across the aortic valve is now measured higher (was 13 mmHg previously) Measurements Name Value Normal Range RVIDd (AP) 2D 2.6 cm (0.9 - 2.6) RVDdMajor (2D) 3.1 cm (2.2 - 4.4) RAd ISD 4CH 5.4 cm (3.4 - 4.9) RA (A4C)W 6 cm (2.9 - 4.6) IVSd (2D) 1.5 cm (0.6 - 1) LVPWd (2D) 1.4 cm (0.6 - 1) LVIDd (2D) 5.9 cm (3.6 - 5.4) LVIDs (2D) 5.2 cm - LV FS (2D) 12 % (25 - 45) Aortic Annulus 2.1 cm (1.4 - 2.6) Ao root diameter (2D) 2.9 cm (2.1 - 3.5) Ascending Ao 3.1 cm (2.1 - 3.4) Aortic arch 3 cm (1.8 - 3.4) LA dimension (AP) 2D 4.6 cm (2.3 - 3.8) LAd ISD 4CH 6.1 cm (2.9 - 5.3) LA ISD 4CH W 4.2 cm (2.5 - 4.5) Name Value Normal Range LA ESV BP (A/L) index 30 ml/m2 - Name Value Normal Range MV E-wave Vmax 1.1 m/sec - MV deceleration time 109 msec - MV A-wave Vmax 0.8 m/sec - MV E:A ratio 1.4 ratio - LV septal e' Vmax 0.05 m/sec - LV lateral e' Vmax 0.05 m/sec - LV E:e' septal ratio 22 ratio - LV E:e' lateral ratio 22 ratio - Name Value Normal Range AV Vmax 3.1 m/sec - AV VTI 67 cm - AV mean gradient 21 mmHg - LVOT diameter 2.1 cm - LVOT Vmax 0.86 m/sec - LVOT VTI 15 cm - ROSLYN (continuity VTI) 0.78 cm2 - Name Value Normal Range MV Vmax 1.1 m/sec - MV VTI 34 cm - MV peak gradient 5 mmHg - MV mean gradient 2 mmHg - MV PHT 100 msec - MVA (PHT) 2.2 cm2 - Name Value Normal Range RAP 8 mmHg - IVC diameter 2.1 cm - Name Value Normal Range PV Vmax 0.8 m/sec - PV peak gradient 2.6 mmHg -
[2017-12-06] MEDS: NS 0.9% 1000 ML* 1,000 ML IV SCH (14:06)
[2017-12-06] MEDS ORDERED: Aspirin 81 mg CHEW TAB* 81 MG TAB.CHEW PO ONE (14:23)
--- NOTE | 2017-12-06 15:30 | CONSULT ---
Subjective Date of Service: 12/06/17 Interval History: Admission Date: 12/05/17 Consult date 12/06/2017 Provider: Hospitalist service PRIMARY CARE PROVIDER: Dr. Armand Varghese. PRIMARY STORAGE ARCHITECT: Dr. Stokes CHIEF COMPLAINT: Slurred speech and left-sided weakness and inability to ambulate. Reason for consult: Abnormal troponin level, ability to hold BP medications in setting of CVA HISTORY OF PRESENT ILLNESS: Mr. Quigley is a 67-year-old man recently admitted with ACS and PCI as detailed below on 11/29/2017. He had been doing well with the exception of brillinta related dyspnea until yesterday when he developed slurred speech and left sided weakness which persists. He was found with a right tamara stroke. He has had no arrhythmias on monitor. His echocardiogram (with definity) did not show an apical thrombus. The case was discussed with Dr. Higginbotham from Interventional cardiology service by Primary service requesting to change brillinta to plavix as below. Pmhx: CAD/CABG/OR/PCI Aortic stenosis Tobacco use ongoing HTN Dyslipidemia Low platelets Retinal artery occlusion 2010 Pshx: Hx of CABG and PCI ALLERGIES: He has no known drug allergies. FAMILY HISTORY: Significant for coronary artery disease. SOCIAL HISTORY: Again as stated, tobacco use for 45 years, 1 pack per day. The patient denies any illicit drug use, alcohol is only social. Medications Active Medications: Albuterol/Ipratropium (Duoneb (Albuterol 2.5 Mg/Ipratropium 0.5 Mg)) 1 neb INH Q6H PRN PRN Reason: SOB/WHEEZING Aspirin (Ecotrin Ec Tab*) 325 mg PO DAILY [facility] Atorvastatin Calcium (Lipitor*) 80 mg PO 1700 [facility] Clopidogrel Bisulfate (Plavix Tab*) 300 mg PO ONCE ONE Stop: 12/06/17 21:01 Clopidogrel Bisulfate (Plavix Tab*) 75 mg PO DAILY [facility] Sodium Chloride (Ns 0.9% 1000 Ml*) 1,000 mls @ 75 mls/hr IV PER RATE [facility] Last Admin: 12/06/17 14:06 Dose: 75 mls/hr Nicotine (Nicotine Patch 21 Mg/24 Hr*) 1 patch TRANSDERM DAILY [facility] Last Admin: 12/06/17 09:41 Dose: 1 patch Nitroglycerin (Nitroglycerin Tab 0.4 Mg*) 0.4 mg SL Q5M PRN PRN Reason: ANGINA Pharmacy Profile Note (Nicotine Patch Removal Note*) 1 note PATCH OFF 2100 [facility]KI Last Admin: 12/05/17 20:11 Dose: Not Given Home Medications: Hydrochlorothiazide TAB* [Hydrodiuril TAB*] 25 mg PO DAILY 11/29/17 [History Confirmed 12/05/17] Ticagrelor* [Brilinta 90 MG*] 90 mg PO BID #60 tab 11/30/17 [Rx Confirmed ] Aspirin 81 mg CHEW TAB* 81 mg PO DAILY tab.chew 12/02/17 [Rx Confirmed 12/05/17 ] Atorvastatin* [Lipitor 80 MG*] 80 mg PO 1700 #90 tab 12/02/17 [Rx Confirmed ] Lisinopril TAB* [Prinivil TAB 10 MG*] 20 mg PO BID #180 tab 12/02/17 [Rx Confirmed 12/05/17] Metoprolol Succinate XL TAB* [Toprol XL TAB*] 50 mg PO DAILY #90 tab.xl [Rx Confirmed 12/05/17] Nitroglycerin TAB 0.4 MG* 0.4 mg SL Q5M PRN #20 tab 12/02/17 [Rx Confirmed 12/05] Review of Systems - Measurements Intake and Output: Intake and Output Last 24 Hours 12/04/17 12/05/17 12/06/17 12/07/17 06:59 06:59 06:59 06:59 Intake Total 1517 400 Output Total 300 440 Balance 1217 -40 Weight 185 lb Intake: IV Fluids 1517 FLUIDS 517 Oral 0 400 Output: Urine 300 440 Other: # Bowel Movements 0 - Review of Systems Constitutional Symptoms: Negative: Weight Gain, Weight Loss Dermatology: Negative: Rash, Skin Lesions HEENT: Negative: Change in Hearing, Vertigo Eyes: Negative: Change in Vision, Double Vision Thyroid: Negative: Cold Intolerance, Heat Intolerance, Constipation, Palpitations, Weight Loss, Weight Gain Pulmonary: Positive: Shortness of Breath Negative: Cough, Sputum, Hemoptysis, Respiratory Distress, Exercise Intolerance Cardiology: Positive: Shortness of Breath, Peripheral Vascular Dis Negative: Chest Pain, Palpitations, Swelling of Ankles, Edema, Faintness, Syncope, Claudication, Paroxysmal Nocturnal Dyspnea, Orthopnea Gastroenterology: Positive: Normal Negative: Abdominal Pain, Nausea, Vomiting, Anorexia Genital - Urinary: Negative: Dysuria, Hematuria Musculoskeletal: Negative: Joint Pain, Joint Stiffness Endocrinology: Negative: Hyperglycemia, Hypoglycemia Hematologic/Lymphatic: Positive: Use of Antiplatelet Drugs Negative: Hx Leukemia, Hx Lymphoma, Use of Anticoagulant Neurology: Positive: Normal, Change in Balancing, Change in Walking, Hx of Stroke\TIA Negative: Change in Coordination, Change in Memory, Change in Speech, Change in Sphincter Function, Numbness\Paresthesiae, Hx Seizures Psychiatry: Negative: Unusual Anxiety, Suicidal Ideation Allergic/Immunologic: Negative: Hx HIV, Immunocompromise Review of Systems Statement: All other review of systems negative, unless stated above. Objective Vital Signs: Temp Pulse Resp BP Pulse Ox 98.1 F 75 20 181/82 100 12/06/17 11:39 12/06/17 11:39 12/06/17 11:15 12/06/17 11:39 12/06/17 11:39 Oxygen Devices in Use Now: None Appearance: nad, pleasant Ears/Nose/Mouth/Throat: Clear Oropharnyx Neck: NL Appearance and Movements; NL JVP, Trachea Midline Respiratory: Symmetrical Chest Expansion and Respiratory Effort, Clear to Auscultation Cardiovascular: RRR, - - sternotomy noted, 2/6 systolic murmur Abdominal: NL Sounds; No Tenderness; No Distention Extremities: No Edema Skin: No Rash or Ulcers Neurological: Alert and Oriented x 3, - - left facial drop, slurred speech, left arm weakness Laboratory Results: 12/06/17 06:21 12/06/17 06:21 INR (Anticoag Therapy) 1.06 (0.77-1.02) H 12/05/17 17:04 APTT 34.7 seconds (26.0-36.3) 12/05/17 17:04 Total Bilirubin 0.90 mg/dL (0.2-1.0) 12/06/17 06:21 AST 16 U/L (13-39) 12/06/17 06:21 ALT 18 U/L (7-52) 12/06/17 06:21 Alkaline Phosphatase 80 U/L (34-104) 12/06/17 06:21 Total Protein 6.1 g/dL (6.4-8.9) L 12/06/17 06:21 Albumin 3.6 g/dL (3.2-5.2) 12/06/17 06:21 Globulin 2.5 g/dL (2-4) 12/06/17 06:21 Albumin/Globulin Ratio 1.4 (1-3) 12/06/17 06:21 Triglycerides 101 mg/dL 12/05/17 17:04 Cholesterol 112 mg/dL 12/05/17 17:04 LDL Cholesterol 70 mg/dL 12/05/17 17:04 HDL Cholesterol 21.8 mg/dL 12/05/17 17:04 12/05/17 12/05/17 17:04 21:48 Troponin I 0.70 H* 0.62 H* Diagnostic Imagin11/29/2017 cardiac catherization report. PROCEDURES: Right common femoral artery access, VARGAS angiography, saphenous vein graft angiography, bilateral selective coronary cineangiography, stent placement left main 3.5 x 16 drug-eluting stent, stent placement circumflex 3.0 x 8 Synergy drug-eluting stent, intracoronary IVUS evaluation, left heart catheterization. No left ventriculogram. HISTORY: A 67-year-old male with remote inferior infarct around 1994. He underwent bypass x4 in 1999 with a VARGAS to the LAD, saphenous vein graft sequenced to a diagonal and marginal, and a saphenous vein graft to the RCA. In [address]-elevation infarct, attempted RCA revascularization in [place] was accompanied by no reflow and an inferior ST-elevation infarct, EF 40%. He underwent catheterization here in 2010 in the setting of a non ST-elevation infarct, was found to have 80% proximal circumflex stenosis which was stented with a 2.75 x 18 drug-eluting stent. The RCA was occluded, the left main had 70 % stenosis, the vein graft to the RCA was occluded, the vein graft to the marginal was diffusely and severely diseased and was not treated, the VARGAS to the LAD was patent. Echo EF was 35% to 40%. Cath in 2014 apparantly revealed the SVG to Dx/CxOM to be occluded. He presented with an inferior ST-elevation infarct with suspected progression of his left main disease or circumflex or in-stent circumflex restenosis. PROCEDURE ACCESS: Right common femoral artery sheath 6F. GUIDING CATHETER: Left main circumflex intervention 6FLBU 3.5 wire 14 BMW. The left main lesion was the presumed culprit as the circumflex appears to be codominant and the left coronary system provides left to right collaterals to the distal right coronary. After the left main and circumflex were wired, a 3 x 15 balloon was used to predilate the left main, at 14 atmospheres for 27 seconds, 17 atmospheres at 20 seconds. It was then stented with a 3.5 x 16 Synergy drug- eluting stent 11 atmospheres 14 seconds, postdilated with a 3.5 x 15 NC balloon 16 and then 18 atmospheres. An OptiCross 3-Serbian IVUS catheter was then introduced to ensure adequate expansion and apposition within the left main. Because of inadequate expansion the 3.5 x 15 mm balloon was then reinflated to 20 atmospheres of 15 seconds, 20 for 15, 20 for 15, and in the proximal left main to 22 atmospheres of 15 seconds. A stenosis at the distal end of the old proximal circumflex stent was evident post high pressure dilatation, was covered with a 3 x 8 mm Synergy drug-eluting stent 11 atmospheres 13 seconds, post dilated with a 3 x 8 NC balloon 16 atmospheres 35 seconds. Repeat IVUS evaluation was performed, right femoral artery was closed with Angio-Seal. HEMODYNAMICS: Initial AO 153/78. Final BP 122/70. LV 142/20, on pull back at most 5 mm peak to peak gradient. ANGIOGRAPHY: Right common femoral artery: Sheath entry is in segment 2, there is no stenosis. VARGAS: The SILVESTRE is moderate, inserts into the mid LAD without insertion stenosis , fills the antegrade to the apex, there are septal to distal right collaterals. The LAD has a proximal competitive flow , has a proximal small bifurcated diagonal which appears to be diffusely decreased. Saphenous Vein Graft Circumflex: The graft nubbin was injected, it is occluded. The RCA vein graft is known to be occluded. [place] RCA: The RCA is by prior description dominant, although I wondered if it was codominant, again it is occluded in its mid portion, fills by bridging collaterals as well as by right to left collaterals. The occlusion is not well suited for revascularization. Left Main: The left main has progressed since 2010 with an 80% to 90% tubular stenosis, there was wedging with catheter engagement. LAD: The LAD has on ostial slit-like 80% stenosis, followed by a moderate to diagonal, then has competitive flow from the VARGAS. Circumflex: The circumflex is likely codominant, moderate, has ostial 50% stenosis. The first marginal is very small, the second marginal is the grafted vessel, the origin is not clearly identifiable, distally it trifurcates. At the end of the procedure I did attempt to enter the second marginal using a BMW as well as a PT Graphix wire without being able to engage the ostium. Distally, the circumflex supplies a moderate posterolateral, and a small probable circumflex PDA. There are left to right distal collaterals. There was heavy calcification of the left main, proximal LAD, and proximal circumflex. After left main revascularization, postdilatation, and placement of an additional distal circumflex stent there was a step down at the distal end of the most distal stent, the left main is still smaller than the proximal circumflex, but much improved. Distal circumflex fills normally, including a circumflex PDA which abruptly stopped, I wonder if it was originally bypassed. IVUS: See addendum. CONCLUSION: 1. Severe 3-vessel disease with patent VARGAS to the LAD, occluded vein graft to the RCA, chronic, occlusion of the vein graft the circumflex, known occluded in 2014. Progression of left main. Successful protected left main stenting with adequate apposition and expansion by IVUS. 2. Mild aortic stenosis by pull back. 3. 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 4. Successful Angio-Seal right common femoral artery. echo 12/06/2017: LVEF 30% with multiple WMA, LA moderately dilated, normal RV size and function, severe low gradient (mean gradient 21 mmHg) CTA head 12/05/2017: MOderate atherosclerosis of aortic acrch, 60% MILLIE stenosis , 50% LICA, no intracranial disease noted MRI brain 12/06/2017: Acute right tamara infarct EKG Data: ekg 12/05/2017: NSR, LVH with repolarization changes, old IWMI Assessment/Plan Mr. Quigley is a 67 year old man with a history as above I am being consulted for abnormal troponin level and ability to hold BP/cardiomyopathy medications. With regards to the abnormal troponin level, it is residual from his recent OR on 11/29/2017 in which the Ck-mb peaked at 120 but troponin was not trended after the initial value and acute intervention. No other evaluation of this is warranted at this time. With regards to holding BP/cardiomyopathy medications. I would do whatever is necessary to allow patient to have best recovery from CVA as possible as directed by Neurology. Following permissive hypertensive period I would restart toprol and lisinopril Needs smoking cessation Patient has a follow up already scheduled with his regular container finishing inspector, Dr. Stokes on 12/12/2017 for for further evaluation and management of his cardiovascular disease. Thank you for allowing me to participate in the cardiovascular care of this patient. Please do not hesitate to contact me with questions or concerns.
[2017-12-06] MEDS ORDERED: Perflutren Lipid Microsphere* 3 ML VIAL ONE (15:35)
[2017-12-06] MEDS: Atorvastatin* 80 MG TAB PO SCH (18:01)
[2017-12-06] MEDS: Nicotine Patch Removal NOTE PATCH OFF SCH (20:05)
[2017-12-06 20:27] LABS: Urine Appearance Clear; Urine Blood 1+ (Negative); Urine Color Yellow; Urine Ketones Negative (Negative); Urine Protein Negative (Negative); Urine Red Blood Cell 1+(3-5/hpf) (Absent); Urine Specific Gravity 1.014 (1.010-1.030); Urine Urobilinogen Positive (Negative); Urine White Blood Cell Trace(0-5/hpf) (Absent)
[2017-12-06] MEDS ORDERED: Clopidogrel TAB* 75 MG PO ONE (21:00)
[2017-12-06] MEDS ORDERED: Clopidogrel TAB* 300 MG PO ONE (21:00)
[2017-12-07 04:56] LABS: ABS Basophils 0.1 10^3/ul (0-0.2); ABS Eosinophils 0.2 10^3/ul (0-0.6); ABS Lymphocytes 1.1 10^3/ul (1.0-4.8); ABS Monocytes 0.6 10^3/ul (0-0.8); ABS Neutrophils 5.3 10^3/ul (1.5-7.7); ABS Nucleated RBC 0 10^3/ul; Hematocrit 44 % (42-52); Hemoglobin 14.9 g/dl (14.0-18.0); Lymphocyte % 14.7 % (25-47); Mean Corpuscular HGB Conc 34 g/dl (31-36); Mean Corpuscular Hemoglobin 30 pg (27-31); Mean Corpuscular Volume 87 fL (80-94); Mean Platelet Volume 9.6 um3 (7.4-10.4); Nucleated Red Blood Cells % 0.1; Platelet Count 83 10^3/ul (150-450); Red Blood Count 5.04 10^6/ul (4.00-5.40); Red Cell Distribution Width 14 % (10.5-15); White Blood Count 7.3 10^3/ul (3.5-10.8)
[2017-12-07] MEDS: Clopidogrel TAB* 75 MG PO SCH (08:50)
[2017-12-07] MEDS: Nicotine PATCH 21 MG/24 HR* PATCH TRANSDERM SCH (08:50)
[2017-12-07] MEDS: Aspirin EC TAB* 81 MG TAB.EC PO SCH (08:50)
[2017-12-07] MEDS ORDERED: Aspirin EC TAB* 325 MG PO SCH (09:00)
--- NOTE | 2017-12-07 09:59 | PN ---
CC: Dr. Molina* NEUROLOGICAL FOLLOWUP: DATE OF VISIT: 12/06/2017. PATIENT OF: [facility]. HISTORY: A 67-year-old man developed left-sided weakness yesterday, but within the past hour and a half or 2 developed worsening weakness in his left arm. He denies any numbness, visual changes, speech problems. He has no headache. MEDICATIONS: His current medications include: 1. Brilinta 90 mg b.i.d. 2. Nicotine patch. 3. Nitroglycerin 0.4 p.r.n. angina. His antihypertensives have been held. He is on 81 mg of aspirin a day and Lipitor at 80 mg daily. PHYSICAL EXAMINATION: On exam, temperature 98.1, pulse 75, respirations 20, blood pressure 181/82. He is alert and oriented with normal speech and comprehension. Cranial nerves II through XII were intact other than a left facial weakness, upper motor neuron. No visual field deficits. Speech was not slurred and there was no aphasia. Motor Exam: When I first saw him, he had 2/ 5 strength in his left arm and leg; however, within 30 minutes or so when I was talking to him, he was just able to begin moving his left arm slightly against gravity and had slightly more movement in his left leg. Toe was equivocal to upgoing in the left side, downgoing in the right. Strength in the right side was 5/5. Chest: Clear. Cardiovascular: Regular rate and rhythm. Abdomen: Soft with positive bowel sounds. IMAGING: I reviewed his MRI scan and then showed the films to the family. He has some diffuse white matter disease, but also has a right pontine stroke that is acute and again his CTA showed plaque in his left carotid of about 50% and 60 % in his right carotid, but basilar and vertebrals appeared normal. IMAGING: CBC today was normal other than a platelet count of 79,000. INR 1.06 , 34 PTT. LDL was 70 yesterday. Normal CMP today other than a total protein of 6.1. Troponin was 0.62. ASSESSMENT AND PLAN: Mr. Quigley has a right pontine stroke, most predominantly on the basis of atherosclerotic disease, but not in a large vessel. His basilar arteries and vertebral arteries looked normal. Per his CTA , he had some carotid stenosis but this is not symptomatic. He also has some diffuse white matter disease on his MRI scan, also consistent with small vessel ischemic disease. I have spoken to the family at length and then also with Chaparrita and recommending transfer to unit, so he can be more closely watched considering even though this is entirely on the right side now, it is possible he could have a penetrating artery that can have further clot extending to the left. He seems to be fluctuating and at the end of the evaluation, his exam is better than at the start. He needs to have good hydration and head of his bed should be down. He should also not be on any blood pressure meds. I discussed that with Chaparrita earlier. I have also asked her to speak to Dr. Higginbotham who is covering for Dr. Molina. He has made this progression on Brilinta and it would make sense to possibly switch him to Plavix with a 200 mg load and then 325 of aspirin and then Plavix daily 75 mg and aspirin daily 325 and he is making sure that this would not cause any complications for the patient following his recent stent placement. I discussed with the family my concerns that this could progress despite optimal medical care and that given his clinical situation, he is not candidate for TPA as previously discussed nor a candidate for clot retrieval in the absence of large vessel occlusion. I discussed that even with meticulous medical management, he could still progress and have bilateral weakness. Thank you for sharing his case. [id number]/[facility] #: [id number] SWETA
[2017-12-07] MEDS: NS 0.9% 1000 ML* 1,000 ML IV SCH (15:27)
--- NOTE | 2017-12-07 17:50 | PN ---
Subjective Date of Service: 12/07/17 Interval History: Alert resting in bed, no acute distress, family at the bedside. no new progression of further weakness on the left, may be slightly better today than last evening. Denies headache or dizziness. denies chest pain or shortness of breath. denies n/v/d. Family History: Unchanged from Admission Social History: Unchanged from Admission Past Medical History: Unchanged from Admission Objective Active Medications: Albuterol/Ipratropium (Duoneb (Albuterol 2.5 Mg/Ipratropium 0.5 Mg)) 1 neb INH Q6H PRN PRN Reason: SOB/WHEEZING Aspirin (Aspirin Ec Tab*) 81 mg PO DAILY [facility] Last Admin: 12/07/17 08:50 Dose: 81 mg Atorvastatin Calcium (Lipitor*) 80 mg PO 1700 [facility] Last Admin: 12/06/17 18:01 Dose: 80 mg Clopidogrel Bisulfate (Plavix Tab*) 75 mg PO DAILY [facility] Last Admin: 12/07/17 08:50 Dose: 75 mg Sodium Chloride (Ns 0.9% 1000 Ml*) 1,000 mls @ 75 mls/hr IV PER RATE [facility] Last Admin: 12/07/17 15:27 Dose: 75 mls/hr Nicotine (Nicotine Patch 21 Mg/24 Hr*) 1 patch TRANSDERM DAILY [facility] Last Admin: 12/07/17 08:50 Dose: 1 patch Nitroglycerin (Nitroglycerin Tab 0.4 Mg*) 0.4 mg SL Q5M PRN PRN Reason: ANGINA Pharmacy Profile Note (Nicotine Patch Removal Note*) 1 note PATCH OFF 2100 [facility] Last Admin: 12/06/17 20:05 Dose: Not Given Vital Signs - 8 hr 12/07/17 12/07/17 12/07/17 10:00 10:30 11:00 Temperature Pulse Rate 68 66 67 Respiratory 22 25 26 Rate Blood Pressure 191/91 173/87 184/90 (mmHg) O2 Sat by Pulse 98 97 98 Oximetry 12/07/17 12/07/17 12/07/17 11:31 12:00 12:01 Temperature 98.6 F Pulse Rate 61 58 52 Respiratory 26 23 21 Rate Blood Pressure 194/75 188/71 (mmHg) O2 Sat by Pulse 98 99 99 Oximetry 12/07/17 12/07/17 12/07/17 12:30 13:00 13:31 Temperature Pulse Rate 61 66 61 Respiratory 24 22 23 Rate Blood Pressure 169/87 177/84 164/62 (mmHg) O2 Sat by Pulse 98 98 98 Oximetry 12/07/17 12/07/17 12/07/17 14:00 14:30 15:00 Temperature Pulse Rate 67 57 78 Respiratory 21 20 21 Rate Blood Pressure 173/74 158/79 (mmHg) O2 Sat by Pulse 99 98 97 Oximetry 12/07/17 12/07/17 12/07/17 15:01 15:31 16:00 Temperature 98.9 F Pulse Rate 64 63 Respiratory 19 33 Rate Blood Pressure 178/77 175/72 (mmHg) O2 Sat by Pulse 100 98 Oximetry Oxygen Devices in Use Now: None Appearance: appears comfortable resting bed, No acute distress, left arm and leg with profound weakness Eyes: No Scleral Icterus Ears/Nose/Mouth/Throat: NL Teeth, Lips, Gums Neck: NL Appearance and Movements; NL JVP, Trachea Midline Respiratory: Symmetrical Chest Expansion and Respiratory Effort, Clear to Auscultation Cardiovascular: RRR, No Edema, - - murmur, Abdominal: NL Sounds; No Tenderness; No Distention Extremities: No Edema, No Clubbing, Cyanosis Skin: No Rash or Ulcers Neurological: Alert and Oriented x 3, - - patient with left arm severe weakness , no bell captain strength, left leg with some function, able to lift ankle off the bed. left facial droop, tongue deviates to the left. eyebrows equal. left should shrug diminished. finger to nose with right arm intact. right hand bell captain intact, right leg strength Nutrition: Taking PO's Result Diagrams: 12/07/17 04:48 12/07/17 04:48 Microbiology and Other Data: Microbiology 12/06/17 19:57 Urine Culture - Final Urine No Growth (<1,000 CFU/mL) Assess/Plan/Problems-Billing Assessment: - Patient Problems (1) CVA (cerebral vascular accident) Current Visit: Yes Status: Acute Code(s): I63.9 - CEREBRAL INFARCTION, UNSPECIFIED SNOMED Code(s): 072659562 Comment: CT/ CTA head no large vessel occulsion Continue statin therapy- this is at the max dose Lipitor 80 mg Continue ASA 81 mg daily Neurology consulted- recommended chnaging brilinta to plavix - with loading dose of 150 mg and then start 75 mg tomorrow. continue ASA at 81 mg. IV hydration continue with HOB at 15- 30 degrees.remain in ICU for closer montoring CVA seems to be stable Maintain SBP 160's- 180's - continue to maintain in this range today- neurology states tomorrow we can possibly start treating BP to more normal range. MRI Right tamara infarct PT- pending - can start to mobilize tomorrow. swallow evaluation - WNL (2) Thrombocytopenia Current Visit: Yes Status: Acute Code(s): D69.6 - THROMBOCYTOPENIA, UNSPECIFIED SNOMED Code(s): 484499608 Comment: platelet count today was 83- this appears to be a chronic condition for him dating back to 2010 - patient will be given a loading dose of plavix today d/t changing his brilinta to plavix- spoke to Dr. Pearce who advised that the patient is at risk of bleeding with any dose of plavix. patient again was advised of the risks of bleeding and would like to proceed with the recommeded dose. - consulted hematology- Seen by DR. Griffin today- note pending (3) Elevated troponin Current Visit: Yes Status: Acute Code(s): R74.8 - ABNORMAL LEVELS OF OTHER SERUM ENZYMES SNOMED Code(s): 947185557 Comment: Troponin 0.70 down to 0.26 suspect this is related to demand ischemia from recent [place] and his stroke - cardiology consulted for elevated troponin and the need to stop BP medications temporally d/t his stroke and the fact the patient has a recent ST segment elevation TN on 11/29 with 2 stents placed. - recommended when able to restart BP medications (4) CAD (coronary artery disease) Current Visit: Yes Status: Acute Code(s): I25.10 - ATHSCL HEART DISEASE OF [place] CORONARY ARTERY W/O ANG PCTRS SNOMED Code(s): 97467905 Comment: Continue ASA , statin, and plavix Patient with new stent placement on 11/29/17 - continue plavix at 75 (5) HTN (hypertension) Current Visit: Yes Status: Acute Code(s): I10 - ESSENTIAL (PRIMARY) HYPERTENSION SNOMED Code(s): 37780329 Comment: Cardiology has recommended that the patient stop all BP medications and maintain a SBP of 160's to 180's - Neurology recommended keep BP ib this range today and may be able to restart BP medications tomorrow. (6) HLD (hyperlipidemia) Current Visit: Yes Status: Acute Code(s): E78.5 - HYPERLIPIDEMIA, UNSPECIFIED SNOMED Code(s): 66079157 Comment: continue Lipitor at 80 mg (7) DVT prophylaxis Current Visit: Yes Status: Acute Code(s): YJR5908 - SNOMED Code(s): 030797356 Comment: chemical held d/t platelet count of 83 continue SCD's (8) Full code status Current Visit: Yes Status: Acute Code(s): Z78.9 - OTHER SPECIFIED HEALTH STATUS SNOMED Code(s): 912082652 Status and Disposition: inpatient ICU- if remains stable will be able to transfer to the floor tomorrow per neurology.
--- NOTE | 2017-12-07 19:51 | PN ---
NEUROLOGICAL FOLLOWUP: DATE OF SERVICE: 12/07/17 SUBJECTIVE: This is a neurological followup of a 67-year-old man who has a right pontine stroke with worsening yesterday. He was transferred to the ICU. He notes this since yesterday late afternoon. He has done relatively well. There has been no progression of his stroke to the right side and his left leg is moving more. He and family are relieved at this point. MEDICATIONS: Include: 1. Aspirin 81 mg daily. 2. Plavix 75 mg daily. 3. Lipitor 80 mg daily. 4. Nicotine patch. 6. Nitroglycerin p.r.n. REVIEW OF SYSTEMS: He has no other complaints. Review of systems was negative. PHYSICAL EXAMINATION: Heart rate 57, temperature 98, respirations 20, blood pressure 184/101. He is alert and oriented with normal speech and comprehension. He has some mild left facial weakness. He has 2/5 strength in the left arm. Moves the left leg with more power than yesterday, 4-/5. Good strength on the right side, 5/5. Chest: Clear. Cardiovascular: Regular rate and rhythm. Abdomen: Soft. Positive bowel sounds. LABORATORY DATA: CBC normal today other than a platelet count of 83. Troponin 0.26. BMP normal. ASSESSMENT AND PLAN: Son has been stable overnight and he has not had a spread of his pontine stroke across midline. His left side looks stronger in the leg. His arm has been fluctuating yesterday and remains quite weak. I discussed that we will keep him in the ICU until we say, today or tomorrow morning to try to ensure optimum perfusion. He will stay on dual platelet therapy and his statin. It would be reasonable for Physical Therapy to see him , but it would not have him stand and do anything vigorous today. Thank you for sharing his case. [id number]/[facility] #: [id number] SWETA
[2017-12-07] MEDS: Nicotine Patch Removal NOTE PATCH OFF SCH (19:52)
[2017-12-07] MEDS: Atorvastatin* 80 MG TAB PO SCH (19:52)
--- NOTE | 2017-12-08 03:09 | CONS ---
CC: Dr. Molina; Dr. Stokes; Dr. Varghese * MEDICAL ONCOLOGY/HEMATOLOGY CONSULTATION NOTE: DATE OF CONSULT: 12/07/17 REASON FOR CONSULT: Thrombocytopenia. HISTORY OF PRESENT ILLNESS: Mr. Quigley is a 67-year-old male who was hospitalized from 11/29/17 to 12/03/[address]-elevation myocardial infarction. He has a longstanding history of coronary artery disease. He has had a previous CABG and subsequent restenosis of vessels. He has underlying aortic stenosis, hypertension. He has had stents placed in the left main and proximal circumflex arteries on 12/01/17. He did well subsequent to this. Shortly after discharge, he developed slurred speech and left-sided weakness. He was brought into the emergency room where [facility] was called. CT of the brain along with a CT of the head and neck did not reveal any significant abnormalities. He has significant left-sided deficit. He was not given any medications for the clotting due to a platelet count of 100,000. He has been seen during the hospitalization by Cardiology and by Neurology. Decision was made to change the patient from his aspirin and Brilinta to aspirin and Plavix given the fact that he had failed in terms of a clot within days of being on the Brilinta. There was a discussion held as to the right dose of the Plavix and he was given 150 mg, not a higher dose. He has done okay with this without any significant bleeding issues. The patient has been noted to have low platelets in the past. His platelet count in 2010 during the hospitalization then ranged from 108,000 to 136,000. Subsequent value of 113,000. Prior episode in 2008 with a platelet count of 141 ,000. His family reports that when he had further cardiac workup in [place] in 2013, he was told that he had low platelets and with a question of doing a bone marrow biopsy to ascertain the reason. When he returned back to [place], platelets were again obtained, I do not have those values, but no further workup was felt to be necessary. When he was admitted on 11/29/17, platelet count was 99,000; subsequent to this, his platelet counts have ranged from 69 to 85 and currently at 83,000. PAST MEDICAL HISTORY: Otherwise, significant for hyperlipidemia and hypertension. MEDICATIONS: At the present time, include: 1. Nicotine patch. 2. Atorvastatin 80 mg daily. 3. Aspirin 81 mg daily. 4. Plavix 75 mg daily after initial 150 mg bolus. ALLERGIES: None. FAMILY HISTORY: No family history of any clotting or bleeding disorders. Coronary artery disease. 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 He has been quite active and playing golf multiple times per week until just recently. He is a smoker. No significant alcohol. REVIEW OF SYSTEMS: No recent infections. No significant change in appetite or weight. No significant chest pain or shortness of breath on this admission. No significant change in bowel or bladder habits. No major arthritic or bony complaints. PHYSICAL EXAM: A 67-year-old male in no acute distress. Vital Signs: Blood pressure 173/87, pulse 65, afebrile. HEENT: PERRL. EOMI. No erythema or exudates. No palpable cervical, supraclavicular, or axillary adenopathy. Lungs : Clear. Heart: Regular rate and rhythm without murmurs. Abdomen: Soft, nontender, without masses or organomegaly. Extremities: No edema. Back: No CVA or spinal tenderness when reaching around to the front. Neurologic Exam: The patient is alert and oriented x3. There is significant weakness of the left arm with essentially no dermatologist managing partner strength and able to rotate his hip and lift his ankle just barely off the bed. He has a left facial droop. IMPRESSION: A 67-year-old male with a recent cerebrovascular accident occurring just days after a myocardial infarction. He was changed from Brilinta to Plavix feeling this to be a Brilinta failure. He remains on aspirin and Brilinta; he has had no significant bleeding. On the MRI of the brain, there is an infarct in the right tamara. Thrombocytopenia is chronic dating back at least to 2010, the present, although very low normal platelet count in 2008. Platelets have been relatively stable during this hospitalization, not dropping, ranging from 69 to 85, and currently being 83. There was a consideration for a bone marrow biopsy in [place] in 2013 at the time of another cardiac event. It would be useful to get the platelet counts from that time and also the subsequent platelets counts from [facility]. So, it is possible, given the longstanding nature of the thrombocytopenia, that this is idiopathic thrombocytopenic purpura. It is unlikely that this medication is inducing this given the longstanding platelet counts without significant further drop over the past several days. He certainly is at risk for increased bleeding given low platelets, Plavix, and aspirin. He is fully understanding of this and recognized that there is no best defined dose for Plavix in the situation, but given the recent stent placement within the last week, it is crucial to continue on this medication. The patient's platelet count will be followed. If it continues to drop, a consideration for bone marrow aspirate and biopsy. I do not see any mention in this admission or the last admission of heparin being given; if it was, it would be reasonable to get a heparin-induced thrombocytopenia blood test just to be sure, although as noted above, given the longstanding of the low platelets , it is unlikely this is yet. 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 He denies any significant use of supplements or herbs, which also at times can be a cause for thrombocytopenia. We will continue to follow while he is in the hospital. Given the current appearance on his peripheral smear, there is no reason to be suspicious for thrombotic thrombocytopenic purpura or HUS type syndromes. [id number]/[facility] #: [id number] [facility] HOSPITALYaneth
[2017-12-08] MEDS: NS 0.9% 1000 ML* 1,000 ML IV SCH (04:19)
[2017-12-08] MEDS: Nicotine PATCH 21 MG/24 HR* PATCH TRANSDERM SCH ×2 (08:45→09:16)
[2017-12-08] MEDS: Aspirin EC TAB* 81 MG TAB.EC PO SCH (09:07)
[2017-12-08] MEDS: Clopidogrel TAB* 75 MG PO SCH (09:07)
--- NOTE | 2017-12-08 14:57 | PN ---
Subjective Date of Service: 12/08/17 Interval History: Patient was seen and examined earlier today. Reports feeling much better overall. His activity orders were changed to OOB to chair, had his PT done, thinks his RLE movements are improving. Speech is also better according to patient and his family. Denies headaches, numbness, chest pain, SOB, blurred vision or trouble swallowing. His spirit is good, looking forward to be transferred to a step-down bed, and eventually to rehab facility. He has no complaints today. Family History: Unchanged from Admission Social History: Unchanged from Admission Past Medical History: Unchanged from Admission Objective Active Medications: Albuterol/Ipratropium (Duoneb (Albuterol 2.5 Mg/Ipratropium 0.5 Mg)) 1 neb INH Q6H PRN PRN Reason: SOB/WHEEZING Aspirin (Aspirin Ec Tab*) 81 mg PO DAILY [facility] Last Admin: 12/08/17 09:07 Dose: 81 mg Atorvastatin Calcium (Lipitor*) 80 mg PO 1700 [facility] Last Admin: 12/07/17 19:52 Dose: 80 mg Clopidogrel Bisulfate (Plavix Tab*) 75 mg PO DAILY [facility] Last Admin: 12/08/17 09:07 Dose: 75 mg Lisinopril (Prinivil Tab*) 10 mg PO BID [facility] Metoprolol Succinate (Toprol Xl Tab*) 50 mg PO DAILY [facility] Nicotine (Nicotine Patch 21 Mg/24 Hr*) 1 patch TRANSDERM DAILY [facility] Last Admin: 12/08/17 09:16 Dose: 1 patch Nitroglycerin (Nitroglycerin Tab 0.4 Mg*) 0.4 mg SL Q5M PRN PRN Reason: ANGINA Pharmacy Profile Note (Nicotine Patch Removal Note*) 1 note PATCH OFF 2100 [facility] Last Admin: 12/07/17 19:52 Dose: 1 note Vital Signs - 8 hr 12/08/17 12/08/17 12/08/17 07:00 07:30 08:00 Pulse Rate 75 61 58 Respiratory 19 19 20 Rate Blood Pressure 188/92 166/87 167/95 (mmHg) O2 Sat by Pulse 97 98 99 Oximetry 12/08/17 12/08/17 12/08/17 08:30 09:00 09:31 Pulse Rate 63 63 57 Respiratory 17 20 19 Rate Blood Pressure 182/86 182/96 172/81 (mmHg) O2 Sat by Pulse 98 97 96 Oximetry 08/18/18 08/18/18 08/18/18 10:00 10:30 11:00 Pulse Rate 54 80 76 Respiratory 18 24 24 Rate Blood Pressure 180/80 193/100 204/113 (mmHg) O2 Sat by Pulse 99 98 98 Oximetry 12/08/17 12/08/17 12/08/17 11:30 12:00 12:30 Pulse Rate 59 64 58 Respiratory 25 25 20 Rate Blood Pressure 163/83 166/84 (mmHg) O2 Sat by Pulse 98 97 99 Oximetry 12/08/17 12/08/17 12/08/17 13:00 13:30 14:00 Pulse Rate 77 65 55 Respiratory 23 31 20 Rate Blood Pressure 184/109 177/78 159/72 (mmHg) O2 Sat by Pulse 100 98 97 Oximetry 12/08/17 14:30 Pulse Rate 55 Respiratory 8 Rate Blood Pressure 147/73 (mmHg) O2 Sat by Pulse 97 Oximetry Oxygen Devices in Use Now: None Appearance: Appears comfortable on his chair. Speech slightly slurred, but able to verbalize well. In NAD. Eyes: No Scleral Icterus, PERRLA Ears/Nose/Mouth/Throat: Clear Oropharnyx, Mucous Membranes Moist, - - Tongue slightly deviated to the left side Neck: NL Appearance and Movements; NL JVP, Trachea Midline Respiratory: Symmetrical Chest Expansion and Respiratory Effort, Clear to Auscultation Cardiovascular: RRR, - - Mild to moderate systolic murmmur noted, no rubs or gallops. Abdominal: NL Sounds; No Tenderness; No Distention Extremities: No Edema Neurological: Alert and Oriented x 3, NL Sensation, - - Gross left sided weakness noted to upper and lower extremities. Nutrition: Taking PO's Result Diagrams: 12/07/17 04:48 12/07/17 04:48 Additional Lab and Data: . Microbiology and Other Data: Microbiology 12/06/17 19:57 Urine Culture - Final Urine No Growth (<1,000 CFU/mL) Diagnostic Imaging: . EKG Data: . Assess/Plan/Problems-Billing Assessment: A 67 y/o male with PMH of HTN, HLD, CAD, who had a recent MT with stent placement, discharged from hospital 3 days ago, presented to ED with left sided weakness and MRI consistent with acute right tamara infarct. - Patient Problems (1) CVA (cerebral vascular accident) Current Visit: Yes Status: Acute Comment: CT/ CTA head no large vessel occulsion Continue statin therapy- this is at the max dose Lipitor 80 mg Continue ASA 81 mg daily Neurology consulted- recommended Plavix 75mg daily and to continue ASA at 81 mg. IV hydration OOB to chair with PT eval and treat today CVA seems to be stable Resumed Metoprolol at 50 mg daily, will add Lisinopril at 1/2 home dose starting tomorrow (target SBP 150-160) swallow evaluation - WNL Clinically stable, will transfer to tele with neurochecks q4 hrs (2) Elevated troponin Current Visit: Yes Status: Acute Comment: Troponin 0.70 down to 0.26 suspect this is related to demand ischemia from recent MT and his stroke - cardiology consulted for elevated troponin, BP meds intially on hold. - Metoprolol to be resumed and Lisinopril at 10mg BID (1/2 home dose) (3) Thrombocytopenia Current Visit: Yes Status: Acute Comment: platelet count stable at 83- this appears to be a chronic condition for him dating back to 2010 - No purpura, ecchymosis or easy bruising on exam. Patient aware of risks/ benefits, Plavix resumed today. - consulted hematology appreciated (4) CAD (coronary artery disease) Current Visit: Yes Status: Acute Comment: Continue ASA , statin, and plavix Patient with new stent placement on 11/29/17 (5) HTN (hypertension) Current Visit: Yes Status: Acute Comment: - Resumed Metoprolol and Lisinoril as indicated above - Monitor BP at telemetry unit, target systolic around 150 mmHg (6) HLD (hyperlipidemia) Current Visit: Yes Status: Acute Comment: continue Lipitor at 80 mg (7) DVT prophylaxis Current Visit: Yes Status: Acute Comment: - chemical held d/t platelet count of 83 - continue SCD's (8) Full code status Current Visit: Yes Status: Acute Status and Disposition: Inpatient. Transfer to telemetry today. Remains inpatient until medically stable to for discharge to rehab.
[2017-12-08] MEDS: Atorvastatin* 80 MG TAB PO SCH (17:26)
--- NOTE | 2017-12-08 20:32 | PN ---
NEUROLOGICAL FOLLOWUP NOTE: DATE OF SERVICE: 12/08/17 SUBJECTIVE: The patient is relieved that he has had no further additional deficits. He has had no right-sided weakness. He feels his speech is close to normal now. He is moving his left leg better. He was able to get up out of bed into a chair and bear some limited weight on his left foot and he has worked with physical therapy today. MEDICATIONS: 1. He has been on his aspirin. 2. Plavix. 3. He is on Lipitor 80 mg a day. 4. Lisinopril 10 mg daily. 5. Metoprolol 50 mg daily. 6. Nitroglycerin p.r.n. PHYSICAL EXAMINATION: He is afebrile. Pulse 56, respirations 20, blood pressure 170/83 when I was in. He is alert and oriented with normal speech and comprehension. He has a left facial weakness, which looks improved. He can shrug his shoulder and has 3/5 strength in his left biceps, but has 0 to 5 strength in his left hand muscles, left leg muscle is 4/5 and is clearly improved from yesterday. Chest: Clear. Cardiovascular: Regular rate and rhythm. Abdomen: Soft with positive bowel sounds. LABORATORY DATA: Include white count of 7.3, hematocrit of 44, platelets 83, 000. Normal BMP. IMPRESSION: Yesterday, Son has had a right pontine stroke secondary to most likely his diffuse atherosclerotic disease. He has now been stable for a day and a half. I discussed this with family and him promising, but too soon to know what his ultimate course will be. I agree with plans for getting him out of the unit and begin getting mobilized with physical therapy and most likely he will need rehabilitation in a rehabilitation unit. He should continue his aspirin and Plavix and Lipitor. Thank you for sharing his case. [id number]/[facility] #: [id number] SWETA
[2017-12-08] MEDS: Lisinopril TAB* 10 MG PO SCH (21:30)
[2017-12-08] MEDS: Nicotine Patch Removal NOTE PATCH OFF SCH (22:18)
[2017-12-09 07:20] LABS: ABS Basophils 0.1 10^3/ul (0-0.2); ABS Eosinophils 0.2 10^3/ul (0-0.6); ABS Lymphocytes 1.1 10^3/ul (1.0-4.8); ABS Monocytes 0.6 10^3/ul (0-0.8); ABS Neutrophils 5.2 10^3/ul (1.5-7.7); ABS Nucleated RBC 0 10^3/ul; Eosinophil % 2.8 % (0-6); Hematocrit 46 % (42-52); Hemoglobin 16.3 g/dl (14.0-18.0); Lymphocyte % 15.2 % (25-47); Mean Corpuscular HGB Conc 36 g/dl (31-36); Mean Corpuscular Hemoglobin 31 pg (27-31); Mean Corpuscular Volume 85 fL (80-94); Mean Platelet Volume 9.4 um3 (7.4-10.4); Nucleated Red Blood Cells % 0.1; Platelet Count 100 10^3/ul (150-450); Red Blood Count 5.33 10^6/ul (4.00-5.40); Red Cell Distribution Width 13 % (10.5-15); White Blood Count 7.2 10^3/ul (3.5-10.8)
[2017-12-09] MEDS: Aspirin EC TAB* 81 MG TAB.EC PO SCH (08:24)
[2017-12-09] MEDS: Lisinopril TAB* 10 MG PO SCH ×2 (08:24→21:07)
[2017-12-09] MEDS: Metoprolol Succinate XL TAB* 50 MG PO SCH (08:24)
[2017-12-09] MEDS: Clopidogrel TAB* 75 MG PO SCH (08:24)
[2017-12-09] MEDS: Nicotine PATCH 21 MG/24 HR* PATCH TRANSDERM SCH (08:25)
--- NOTE | 2017-12-09 14:35 | PN ---
Subjective Date of Service: 12/09/17 Interval History: Mr. Araujo reports doing very well. Had his PT session earlier this AM, did well , continue to improve with LLE movement. Denies headaches, blurred vision, chest pain, palpitations or SOB. Appetite is good, denies dysphagia, nausea or vomiting. Has been accepted for rehab at [facility] starting tomorrow. He has no new complaints. Family History: Unchanged from Admission Social History: Unchanged from Admission Past Medical History: Unchanged from Admission Objective Active Medications: Albuterol/Ipratropium (Duoneb (Albuterol 2.5 Mg/Ipratropium 0.5 Mg)) 1 neb INH Q6H PRN PRN Reason: SOB/WHEEZING Aspirin (Aspirin Ec Tab*) 81 mg PO DAILY [facility] Last Admin: 12/09/17 08:24 Dose: 81 mg Atorvastatin Calcium (Lipitor*) 80 mg PO 1700 [facility] Last Admin: 12/08/17 17:26 Dose: 80 mg Clopidogrel Bisulfate (Plavix Tab*) 75 mg PO DAILY [facility] Last Admin: 12/09/17 08:24 Dose: 75 mg Lisinopril (Prinivil Tab*) 10 mg PO BID [facility] Last Admin: 12/09/17 08:24 Dose: 10 mg Metoprolol Succinate (Toprol Xl Tab*) 50 mg PO DAILY [facility] Last Admin: 12/09/17 08:24 Dose: 50 mg Nicotine (Nicotine Patch 21 Mg/24 Hr*) 1 patch TRANSDERM DAILY [facility] Last Admin: 12/09/17 08:25 Dose: Not Given Nitroglycerin (Nitroglycerin Tab 0.4 Mg*) 0.4 mg SL Q5M PRN PRN Reason: ANGINA Pharmacy Profile Note (Nicotine Patch Removal Note*) 1 note PATCH OFF 2100 [facility] Last Admin: 12/08/17 22:18 Dose: 1 note Vital Signs - 8 hr 12/09/17 12/09/17 12/09/17 08:00 08:08 08:17 Temperature 97.5 F 98.1 F Pulse Rate 58 67 Respiratory 16 16 18 Rate Blood Pressure 114/87 139/64 (mmHg) O2 Sat by Pulse 98 96 Oximetry 12/09/17 12/09/17 11:08 14:03 Temperature 97.4 F Pulse Rate 48 54 Respiratory 20 18 Rate Blood Pressure 158/60 (mmHg) O2 Sat by Pulse 97 98 Oximetry Oxygen Devices in Use Now: None Appearance: Appears comfortable and in NAD Eyes: No Scleral Icterus, PERRLA Ears/Nose/Mouth/Throat: Clear Oropharnyx, Mucous Membranes Moist Neck: NL Appearance and Movements; NL JVP, Trachea Midline Respiratory: Symmetrical Chest Expansion and Respiratory Effort, Clear to Auscultation Cardiovascular: NL Sounds; No Murmurs; No JVD, RRR Abdominal: NL Sounds; No Tenderness; No Distention Extremities: No Edema Neurological: Alert and Oriented x 3, NL Sensation, - - Some improvement raising LLE Nutrition: Taking PO's Result Diagrams: 12/09/17 07:00 12/07/17 04:48 Additional Lab and Data: . Microbiology and Other Data: Microbiology 12/06/17 19:57 Urine Culture - Final Urine No Growth (<1,000 CFU/mL) Diagnostic Imaging: . EKG Data: . Assess/Plan/Problems-Billing Assessment: A 67 y/o male with PMH of HTN, HLD, CAD, who had a recent NH with stent placement, discharged from hospital 3 days ago, presented to ED with left sided weakness and MRI consistent with acute right pontine infarct. - Patient Problems (1) CVA (cerebral vascular accident) Current Visit: Yes Status: Acute Comment: CT/ CTA head no large vessel occulsion Continue statin therapy- this is at the max dose Lipitor 80 mg Continue ASA 81 mg daily Neurology consulted- recommended Plavix 75mg daily and to continue ASA at 81 mg. IV hydration OOB to chair with PT eval and treat today CVA seems to be stable Resumed Metoprolol at 50 mg daily, will add Lisinopril at 1/2 home dose starting tomorrow (target SBP 150-160) swallow evaluation - WNL Clinically stable, will transfer to tele with neurochecks q4 hrs - Has been accepted for [facility] for [facility]. Patient and family aware and agreed to plans. (2) Elevated troponin Current Visit: Yes Status: Acute Comment: Troponin 0.70 down to 0.26 suspect this is related to demand ischemia from recent NH and his stroke - Metoprolol resumed and Lisinopril at 10mg BID (1/2 home dose) (3) Thrombocytopenia Current Visit: Yes Status: Acute Comment: platelet count stable at 100 today, improved since admission- this appears to be a chronic condition for him dating back to 2010 - No purpura, ecchymosis or easy bruising on exam. Patient aware of risks/ benefits, Plavix resumed today. - consulted hematology appreciated (4) CAD (coronary artery disease) Current Visit: Yes Status: Acute Comment: Continue ASA , statin, and plavix Patient with new stent placement on 11/29/17 (5) HTN (hypertension) Current Visit: Yes Status: Acute Comment: - Resumed Metoprolol and Lisinoril as indicated above - Monitor BP at telemetry unit, target systolic around 150 mmHg (6) HLD (hyperlipidemia) Current Visit: Yes Status: Acute Comment: continue Lipitor at 80 mg (7) DVT prophylaxis Current Visit: Yes Status: Acute Comment: - chemical held d/t hx thrombocytopenia, no documented hx HIT - continue SCD's (8) Full code status Current Visit: Yes Status: Acute Status and Disposition: Inpatient. Anticipate discharge to [facility] tomorrow.
[2017-12-09] MEDS: Atorvastatin* 80 MG TAB PO SCH (17:23)
--- NOTE | 2017-12-09 23:30 | PN ---
NEUROLOGICAL FOLLOWUP NOTE: DATE OF SERVICE: 12/09/17 SUBJECTIVE: He feels stronger today and was able to stand on his left leg and bear weight. He has some strength return in his left arm and hand and he is very pleased. MEDICINES: Include: 1. Aspirin 81 mg daily. 2. Plavix 75 daily. 3. Lipitor 80 mg daily. 4. Lisinopril 10 mg b.i.d. 5. Toprol 50 mg daily. 6. Nitroglycerin p.r.n. PHYSICAL EXAMINATION: Temperature 97.4, pulse 54, respiratory rate 18, blood pressure 158/60. He is alert and oriented with normal speech and comprehension. Cranial nerves II through XII intact other than minor left facial weakness. He was able to lift his arm somewhat against gravity and has some button riveter in his arm and hand strength is 4-/5 on the left and 5-/5 in the left leg. He feels much stronger than previously. Right side is intact. Chest: Clear. Cardiovascular: Regular rate and rhythm. Abdomen: Soft with positive bowel sounds. LABORATORY DATA: CBC was normal other than platelet count of 100 today. INR is 1.06, PTT 34.7. Chemistries were normal on 12/07/17. IMPRESSION: Mr. Quigley's right pontine stroke is clinically improving in a significant way. He will probably go for a short rehab stay, on aspirin, Plavix , and statins. I will see him in a month to a month and a half. Dr. Roberts is beginning tomorrow, if he should need him, but I will not be signing Mr. Quigley out, since he has no acute neurological issues at this point. Thank you for sharing his case. [id number]/[facility] #: [id number] E.J. NOBLE HOSPITALYaneth
[2017-12-10] MEDS: Nicotine Patch Removal NOTE PATCH OFF SCH (04:13)
[2017-12-10] MEDS: Lisinopril TAB* 10 MG PO SCH (08:05)
[2017-12-10] MEDS: Metoprolol Succinate XL TAB* 50 MG PO SCH (08:05)
[2017-12-10] MEDS: Aspirin EC TAB* 81 MG TAB.EC PO SCH (08:06)
[2017-12-10] MEDS: Clopidogrel TAB* 75 MG PO SCH (08:06)
[2017-12-10] MEDS: Nicotine PATCH 21 MG/24 HR* PATCH TRANSDERM SCH (11:17)
--- NOTE | 2017-12-10 11:24 | PN ---
Subjective Date of Service: 12/10/17 Interval History: Patient seen and examined at bedside. Denies fever, chills, shortness of breath , chest discomfort, N/V/D. Pt states that he continues to have left sided weakness, but feels that this is slowly improving. Tele: Sinus mine to sinus rhythm, rate 40-60's. Pt noted to have sinus arrhythmia this AM and occasional 1st degree block. Family History: Unchanged from Admission Social History: Unchanged from Admission Past Medical History: Unchanged from Admission Objective Active Medications: Albuterol/Ipratropium (Duoneb (Albuterol 2.5 Mg/Ipratropium 0.5 Mg)) 1 neb INH Q6H PRN Reason: SOB/WHEEZING Aspirin (Aspirin Ec Tab*) 81 mg PO DAILY [facility] Atorvastatin Calcium (Lipitor*) 80 mg PO 1700 [facility] Clopidogrel Bisulfate (Plavix Tab*) 75 mg PO DAILY [facility] Lisinopril (Prinivil Tab*) 10 mg PO BID [facility] Metoprolol Succinate (Toprol Xl Tab*) 50 mg PO DAILY [facility] Nicotine (Nicotine Patch 21 Mg/24 Hr*) 1 patch TRANSDERM DAILY [facility] Nitroglycerin (Nitroglycerin Tab 0.4 Mg*) 0.4 mg SL Q5M PRN Reason: ANGINA Pharmacy Profile Note (Nicotine Patch Removal Note*) 1 note PATCH OFF 2100 [facility] Vital Signs - 8 hr 12/10/17 12/10/17 12/10/17 04:08 07:45 08:00 Temperature 97.7 F 97.0 F Pulse Rate 54 56 Respiratory 16 16 16 Rate Blood Pressure 179/66 159/59 (mmHg) O2 Sat by Pulse 98 97 Oximetry Oxygen Devices in Use Now: None Appearance: NAD, laying in bed Ears/Nose/Mouth/Throat: Mucous Membranes Moist Respiratory: Symmetrical Chest Expansion and Respiratory Effort, Clear to Auscultation Cardiovascular: NL Sounds; No Murmurs; No JVD, RRR Abdominal: NL Sounds; No Tenderness; No Distention Extremities: No Edema Skin: No Rash or Ulcers Neurological: Alert and Oriented x 3, - - Left UE and LE weakness, able to close left hand and bend left knee up Lines/Tubes/Other Access: Clean, Dry and Intact Peripheral IV - site benign Nutrition: Taking PO's Result Diagrams: 12/09/17 07:00 12/07/17 04:48 Additional Lab and Data: . Microbiology and Other Data: Microbiology 12/06/17 19:57 Urine Culture - Final Urine No Growth (<1,000 CFU/mL) Diagnostic Imaging: . EKG Data: . Assess/Plan/Problems-Billing Assessment: Mr. Quigley is a 67 y/o male with PMH of HTN, HLD, CAD, who had a recent ID with stent placement, discharged from hospital and then presented to ED with left sided weakness and MRI consistent with acute right pontine infarct. - Patient Problems (1) CVA (cerebral vascular accident) Code(s): I63.9 - CEREBRAL INFARCTION, UNSPECIFIED SNOMED Code(s): 635428025 Comment: - Continues to have left sided weakness - Brain MRI shows right tamara infarct - CT/ CTA head no large vessel occulsion - Neurology consult, input appreciated - Continue statin therapy (max dose Lipitor 80mg), ASA 81 mg daily, and Plavix (2) Thrombocytopenia Code(s): D69.6 - THROMBOCYTOPENIA, UNSPECIFIED SNOMED Code(s): 239695330 Comment: - Platelet count stable, improved since admission - This appears to be a chronic condition for him dating back to 2010 - No purpura, ecchymosis or easy bruising on exam. Patient aware of risks/ benefits of Plavix - Hematology consult, input appreciated (3) CAD (coronary artery disease) Code(s): I25.10 - ATHSCL HEART DISEASE OF [place] CORONARY ARTERY W/O ANG PCTRS SNOMED Code(s): 31656752 Comment: - Asymptomatic - New stent placement on 11/29/17 - Continue ASA , statin, and plavix (4) HLD (hyperlipidemia) Code(s): E78.5 - HYPERLIPIDEMIA, UNSPECIFIED SNOMED Code(s): 97416253 Comment: - Continue Lipitor (5) HTN (hypertension) Code(s): I10 - ESSENTIAL (PRIMARY) HYPERTENSION SNOMED Code(s): 41937178 Comment: - SBP 150-170's, target SBP ~ 150 - Continue Metoprolol and Lisinoril (6) DVT prophylaxis Code(s): PJC8213 - SNOMED Code(s): 362287877 Comment: - Chemical held d/t hx thrombocytopenia, no documented hx HIT - Continue SCD's (7) Full code status Code(s): Z78.9 - OTHER SPECIFIED HEALTH STATUS SNOMED Code(s): 266149675 Status and Disposition: Inpatient. Stable for discharge to [facility] today
[2017-12-10 11:46] VITALS: BP 156/75
--- NOTE | 2017-12-11 04:00 | DS ---
CC: Dr. Armand Varghese * DATE OF ADMISSION: 12/05/17 DATE OF DISCHARGE: 12/10/17 ATTENDING PHYSICIAN: Dr. Deepak France * (dictated by Ragini Miller NP) PRIMARY CARE PHYSICIAN: Dr. Armand Varghese PRIMARY DIAGNOSIS: 1. Right tamara cerebral vascular accident. 2. Left-sided weakness secondary to CVA. SECONDARY DIAGNOSES: 1. Thrombocytopenia. 2. Coronary artery disease, status post recent stent placement. 3. Hyperlipidemia. 4. Hypertension. CONSULTATIONS WHILE IN THE HOSPITAL: Dr. Austen Beltre with Cardiology; Dr. Hernán Griffin with Hematology; Dr. Jonatan Harvey with Neurology. STUDIES WHILE IN THE HOSPITAL: 1. Brain CT on 12/05/17. Radiologist impression: No acute intracranial findings. 2. Chest x-ray on 12/05/17. Radiologist impression: Postoperative change, no active disease. 3. Head CTA on 12/05/17. Radiologist impression: No evidence of aneurysm, significant stenosis or branch occlusion. 4. Brain MRI on 12/05/17. Radiologist impression: Acute infarct of the right tamara. No hemorrhage. 5. Transthoracic echocardiogram on 12/06/17. Electric Operator conclusion: The left ventricular chamber size was mildly dilated. Moderate concentric left ventricular hypertrophy was observed. There are multiple regional wall motion abnormalities. There is severely decreased left ventricular systolic function, estimated ejection fraction is 25 to 30%. Definity was used to exclude an apical thrombus. The left atrium is moderately dilated. The right ventricular chamber size and systolic function are within normal limits. There is low gradient severe aortic stenosis. The mean gradient of the aortic valve is 22 mmHg. Compared to prior study from 11/30/17, the mean gradient across the aortic valve is now measured higher. HOME MEDICATIONS: Include: 1. Hydrochlorothiazide 25 mg oral daily. 2. Atorvastatin 80 mg oral daily. 3. Aspirin 81 mg oral daily. 4. Nitroglycerin 0.4 mg sublingual as needed for chest pain. 5. Metoprolol succinate 50 mg oral daily. 6. Lisinopril 10 mg oral twice daily. 7. Brilinta 90 mg oral twice daily. Hospital medications Include: 1. DuoNeb 1 neb every 6 hours as needed for shortness of breath or wheeze. 2. Aspirin 81 mg oral daily. 3. Atorvastatin 80 mg oral daily. 4. Plavix 75 mg oral daily. 5. Lisinopril 10 mg oral twice daily. 6. Metoprolol succinate 50 mg oral daily. 7. Nicotine 21 mg 1 patch transdermal every 24 hours. 8. Nitroglycerin 0.4 mg sublingual every 5 minutes as needed for angina. HISTORY OF PRESENT ILLNESS/HOSPITAL COURSE: Mr. Quigley is a 67-year-old male with past medical history significant for coronary artery disease, status post CABG with restenosis of vessels, aortic stenosis, hypertension, chronic thrombocytopenia, hyperlipidemia, chronic tobacco abuse, who was recently discharged from the hospital on 12/03/17 after having inferior wall ST elevation NE, who was at home recovering from his most recent cardiac stent placement, which according to records was placed in his left main and proximal circumflex, who suddenly developed slurred speech and left-sided weakness at home. EMS was called. The patient was brought to the emergency room where a yenni carter was called. While in the emergency room, the patient had a brain CT and CT of his head and neck showing no large vessel occlusions or signs of an acute infarct at that time. The patient was noted to have a left-sided deficit. He was not a candidate for tPA as he has history of chronic thrombocytopenia. He was seen in consultation by Neurology. While in the hospital, the patient continued to have left-sided weakness that improved, his speech deficit resolved. His Brilinta was discontinued, he was placed on aspirin and Plavix. He was continued on maximum statin therapy. He was seen in consultation by Dr. Griffin with Hematology regarding his thrombocytopenia. This is a chronic condition to him dating back to 2010. It was felt that he was safe to continue on aspirin and Plavix in regards to his coronary artery disease and recent cardiac stent placements. Again, his Brilinta was changed to aspirin and Plavix. He was continued on maximum dose statins. He is asymptomatic with no complaints of chest pain. The patient's blood pressures have remained mostly in his target goal of systolic blood pressure approximately 150 and continued on metoprolol, lisinopril. He was doing well. He had Physical Therapy, Occupational Therapy. It was felt that he could benefit from going to acute rehab and he was offered a bed in [facility]. Mr. Quigley is stable for discharge to [facility] today. Vital signs are as follows. Temperature 97.7, heart rate is 62, respiratory rate 16, O2 sats 97% on room air , blood pressure 156/75. DISCHARGE PLAN: Mr. Quigley will be discharged to [facility]. Activity as tolerated. He should be on heart healthy diet in regards to his CVA. He should be continued on dual antiplatelet therapy of aspirin and Plavix. He will continue on maximum dose of statin. Regards to his recent PCI and 2 stents being placed, he will be continued on aspirin, Plavix, metoprolol. Regard to his hypertension, he should have a goal systolic blood pressure of approximately 150. He should be continued on his lisinopril and metoprolol. He should continue adjusting his medications if he continues to be hypertensive. The patient should return to the emergency room for any chest pain , shortness of breath, new symptoms of CVA. This is a summarized report of a complex medical history and hospital stay. For further details, please see the entire medical record. Time for this discharge was approximately 50 minutes, greater than half of that was spent with the patient and his discussing discharge plans and instructions. CONDITION ON DISCHARGE: Stable. Reviewed by SHLOMO ORTIZ 12/12/17 1357 [id number] #: [id number] SW[facility]
== END 2017-12-10 13:04 | DRG 64 ==
LOC: ED 16:30 → MEDTELE 19:01 → ICU 12-06 15:42 → MEDTELE 12-08 18:48
PROVIDERS: ADMIT Internal Medicine; ATTEND Internal Medicine
DX: I63.8 Other cerebral infarction (principal); I21.19 ST elevation (STEMI) myocardial infarction involving other coronary artery of inferior wall; G81.94 Hemiplegia, unspecified affecting left nondominant side; I25.810 Atherosclerosis of coronary artery bypass graft(s) without angina pectoris; I24.8 Other forms of acute ischemic heart disease; D69.6 Thrombocytopenia, unspecified; R47.81 Slurred speech; I11.9 Hypertensive heart disease without heart failure; I35.0 Nonrheumatic aortic (valve) stenosis; E78.5 Hyperlipidemia, unspecified; F17.210 Nicotine dependence, cigarettes, uncomplicated; R74.8 Abnormal levels of other serum enzymes; Z79.82 Long term (current) use of aspirin; Z79.899 Other long term (current) drug therapy; Z82.49 Family history of ischemic heart disease and other diseases of the circulatory system; Z95.5 Presence of coronary angioplasty implant and graft; Z95.1 Presence of aortocoronary bypass graft; I65.29 Occlusion and stenosis of unspecified carotid artery
CPT/HCPCS: 36415; 70450; 70496; 70498; 70551; 71045; 80048; 80053; 80061; 81003; 81015; 83605; 83735; 84484; 85025; 85610; 85730; 86850; 86900; 86901; 87086; 93005; 93306; 99284; A9270-GY; G8978-GP-CM; G8979-GP-CI; Q9967

== ENCOUNTER 2017-12-10 08:43 | Inpatient (IN) | payer MEDICARE ==
[2017-12-10] MEDS ORDERED: Magnesium Hydroxide LIQ* 30 ML UDC PO PRN (15:35)
[2017-12-10] MEDS ORDERED: Acetaminophen TAB* 325 MG PO PRN (15:35)
[2017-12-10] MEDS ORDERED: Senna TAB PO PRN (15:35)
[2017-12-10] MEDS: Atorvastatin* 80 MG TAB PO SCH (17:05)
[2017-12-10] MEDS ORDERED: Nitroglycerin TAB 0.4 MG* 0.4 MG TAB SL PRN (17:22)
--- NOTE | 2017-12-10 18:14 | HP ---
ADMISSION HISTORY AND PHYSICAL: DATE OF ADMISSION: 12/10/17 REASON FOR ADMISSION: Right pontine stroke with left hemiparesis. HISTORY OF PRESENT ILLNESS: Son Quigley is a 67-year-old white male with a medical history significant for coronary artery disease with several previous heart attacks. He had an OK in 1994. In 1999, he had a 4-vessel CABG. The patient has history of angina and dyspnea on exertion. He was only able to walk about a block. On 11/29/17, he got up to go [employer] early in the morning. As he was getting ready, he developed chest pain. He took a nitroglycerin. He did not get better. He took another nitroglycerin and again did not get better. He was brought to the hospital. He was seen by Dr. Molina. He had an inferior wall ST elevation [place]. He was taken to the cleaner laboratory equipment and had 2 stents placed. He had a stent in the left main and 1 in the proximal circumflex. He was sent home on Brilinta as well as aspirin. The patient felt good after that. He was able to walk much further than he has been able to walk in a while. He went for a walk on the as well as one on the . He also stopped at [facility] on the to go for a walk. He felt like he was having some cloudiness in his thinking, so he got in his car and drove home. When he got home, he was unable to walk properly. He was able to manage getting into the house, but was stumbling. When got to the house, his significant other was calling him on the phone. He was brought back to the hospital with left-sided weakness. He had a CAT scan of his brain that did not show any hemorrhage. Unfortunately, he was seen by Neurology and was not a candidate for tPA as his platelet count was only 80,000. He does have a history of chronic thrombocytopenia. He later had an MRI of his brain, which showed an acute infarct in the right tamara. The patient's Brilinta was stopped. The patient was put on aspirin and Plavix as well as high dose Lipitor. His platelet count was monitored and it seemed to be improving, although did not come to normal. Again, he had a history of chronic thrombocytopenia before this admission. The patient otherwise was relatively stable. He was felt to have physical therapy and occupational therapy needs. He is now being admitted for inpatient rehab so that he might return to independent living. PAST MEDICAL HISTORY: Significant for coronary artery disease, nicotine addiction. He has never been diagnosed with COPD or ever used inhalers. He had aortic stenosis noted on his cardiac cath report. He has also a history of hypertension. CURRENT MEDICATIONS: Include: 1. Aspirin. 2. Lipitor. 3. Plavix. 4. He is on lisinopril. 5. Toprol-XL. 6. Nicotine patch. 7. He is also on bowel medications. ALLERGIES: The patient has no known drug allergies. SOCIAL HISTORY: He was a pack-a-day smoker. He has not had a cigarette since 12/05/17. He does not drink. He is recovering alcoholic and has not had a drink in 35 years. He lives with his significant other in a trailer with 4 steps to enter. It is all on 1 level once inside. 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 REVIEW OF SYSTEMS: The patient reports no current shortness of breath or chest pain. PHYSICAL EXAMINATION VITAL SIGNS: The patient's temperature is 98.2, blood pressure is 165/65, pulse 58, respirations 20. HEENT: He has a left facial palsy. NECK: Supple. LUNGS: Sounded clear to auscultation bilaterally. HEART: Sounds were regular. S1 and S2 were audible. He has a grade 2-3/6 systolic murmur. ABDOMEN: Soft and nontender. EXTREMITIES: Left arm had slight decreased tone. No edema was noted. Peripheral pulses were intact. NEUROLOGIC: He was awake, alert, oriented. Muscle strength in his left arm was about 2/5. Left leg was 3/5 proximally. Dorsiflexion was 1-2/5. FUNCTIONAL EXAM: He transfers with max assist. ASSESSMENT: 1. Right pontine cerebrovascular accident with left hemiplegia. 2. Recent ST-elevation myocardial infarction with 2 stents. PLAN: Integrate him into a comprehensive and therapeutic rehab program with the following goals: 1. Physical Therapy will work with the patient. They are going to work on functional transfer training, ambulation training with a walker. 2. Occupational Therapy will see the patient, work on his activities of daily living including toileting and toilet transfers. 3. ARACELIS stockings for DVT prophylaxis. Given his low platelet count, we are not going to use heparin at this time. 4. Continue dual antiplatelet therapy for secondary stroke prevention. 5. SSRIs including Prozac as indicated. 6. Continue Lipitor 80 mg daily. 7. For his nicotine addiction, we are going to continue use of nicotine patch. 8. Family training as appropriate. 9. conference services coordinator will be closely involved to make sure that any services and equipment the patient requires are in place prior to discharge. 10. For his coronary artery disease, we are going to continue the aspirin as well as the Toprol-XL and his lisinopril. 11. Home with appropriate services. ESTIMATED LENGTH OF STAY: 10 to 12 days. [id number]/[facility] #: [id number] [facility]
[2017-12-10] MEDS: Docusate CAP* 100 MG PO SCH (20:22)
[2017-12-10] MEDS: Nicotine Patch Removal NOTE FOLLOW UP SCH ×2 (20:22→20:24)
[2017-12-10] MEDS: Lisinopril TAB* 10 MG PO SCH (20:22)
[2017-12-11] MEDS: Metoprolol Succinate XL TAB* 50 MG PO SCH (08:00)
[2017-12-11] MEDS: Clopidogrel TAB* 75 MG PO SCH (08:00)
[2017-12-11] MEDS: Aspirin EC TAB* 81 MG TAB.EC PO SCH (08:00)
[2017-12-11] MEDS: Lisinopril TAB* 10 MG PO SCH ×2 (08:00→20:19)
[2017-12-11] MEDS: Docusate CAP* 100 MG PO SCH ×2 (08:01→20:20)
[2017-12-11] MEDS: Nicotine PATCH 21 MG/24 HR* PATCH TRANSDERM SCH (08:01)
--- NOTE | 2017-12-11 12:34 | PMRUTEAM ---
PMRU: Team Meeting Current Status: Nursing: Current Status Skin Deviations [Left Lower Previous Access Point Arm] Skin Deviations [Left Buttocks Rash ] Skin Deviations [Right Groin] Rash Skin Deviation Description [ previous IV site, inflamed, antibiotic ointment Left Lower Arm] and bandaid applied Skin Deviation Description [ may benefit from something to stop itching of the Left Buttocks] rash Skin Deviation Description [ flat, red, non-irritating Right Groin] Bladder Current Status Continent, urinal at night, in bathroom today (6) Bowel Current Status Continent, Nutrition Current Status Adequate Medication Current Status Verb understanding Physical Therapy: Current Status Bed Mobility Assistance Mod Assist Transfer Moblility Assistance Mod Assist Transfer/Bed Mobility Small Base Quad Cane Recommended Devices Ambulation Assistance Max Assist Ambulation Assistive Devices Small Base Quad Cane Stairs Assistance NT Stairs Recommended Devices One Rail Number of Stairs N/A Wheelchair Distance (ft) 100 Occupational Therapy: Current Status Upper Body Dressing Supervision Lower Body Dressing Max Asst,2 Person Assist Bathing Mod Assist,2 Person Assist Toileting Total Assist,2 Person Assist Toileting Progress not yet assessed Toilet Transfer Mod Assist Toilet Transfer Progress not yet assessed Shower Transfer Mod Assist Eating Supervision Rec Therapy: Current Status Summary of Assessment and RT assessment complete and pt. is aware of Clinical Impression services. Pt. is bright and interactive during leisure sessions. Treatment Goals Pt. will engage in leisure activities while on the unit. Treatment Plan Provide RT services and encourage involvement. Social Work: Current Status Discharge Plan return home with home care svs and family support Potential for Family Training pt's is involved and supportive Anticipated Discharge Home Destination Discharge With home care svs and family support Nutrition: Current Status Monitoring pt known from prior to PMRU adm. No swallowing deficits noted, so regular textures and thin liquids tolerated. PO intake, however, has wavered, primarily due to dislikes of hospital/low na+ food. Initial goals as outlined below. Goals: Physical Therapy: Initial Goals Bed Mobility Assistance Independent Transfer Mobility Assistance Independent Transfer/Bed Mobility Small Base Quad Cane Recommended Devices Ambulation Independent Ambulation Recommended Devices Small Base Quad Cane Ambulation Distance 150 Wheelchair Propulsion Ability Independent Stairs Assistance Independent Stair Recommended Devices One Rail Number of Stairs 12 Home Exercise Program Independent Assistance Physical Therapy: Updated Goals Transfer/Bed Mobility Hand Hold Recommended Devices Occupational Therapy: Initial Goals Goals to be Completed in (Days 18-25 days ) Upper Body Bathing Routine Independent Lower Body Bathing Routine Modified Independent with Upper Body Dressing Routine Independent Lower Body Dressing Routine Modified Independent with Toilet Hygeine and Clothing Modified Independent with Management Routine Toilet Transfer Routine Modified Independent with Tub Transfer Routine Modified Independent with Functional Transfers for ADL Modified Independent with Grooming Routine Independent Feeding Routine Independent Light Housekeeping Tasks Modified Independent with Nursing: Goals Bladder Goal 7 Independent Bowel Goal 7 Independent Nutrition Goal Independent Medication Goal Independent Nutrition: Goals Intervention Goals 1. improved and adequate po intake to maintain stable wt, lean body mass, and hydration 2. pt will tolerate regular diet textures and liquid consistency without s/sx dysphagia 3. achieve and maintain serum electrolytes within normal ranges 4. pt will continue to avoid grapefruit/ grapefruit juice on statin therapy Social Work: Goals Discharge Plan return home with home care svs and family support Potential for Family Training pt's is involved and supportive Anticipated Discharge Home Destination Discharge With home care svs and family support Care Plan: Care Plan ADL's - Improve/Maintain Start: 12/10/17 15:42 Freq: DAILY Status: Active Target: Protocol: Activity Type Activity Date Activity User E-Sign Co-Sign Detail Recorded Client Recorded Date Recorded By Document 12/10/17 15:42 [id number] 12/10/17 15:42 [id number] 12/10/17 15:42 PMRU Outcome: ADL's/ADL Transfers Orders/Interventions Occupational Therapy Evaluation & Treatment Communication Tool in Patient Room Device Yes Address Deficits Secondary To: R CVA Patient to receive OT 5x/wk for 60-120 Therex min/day Self Care Management Group Therapy Neuromuscular ReEducation UE/LE ADL's with Assist Yes: Jimmy ADL Transfers with Assist Yes: Jimmy Toileting: Transfers,Clothing Management Yes: Jimmy ,Hygeine w/Assist Light Kitchen/Laundry w/Assist Yes: Angie Progression Toward Outcome/Goals Progressing Outcome/Goals Met Pt is a 67 y/o man who suffered a R pontine CVA soon after being discharged from [facility] for an [facility]. Pt presents with L sided weakness, decreased coordinaiton in LUE, decreased balance, decreased AROM in LEs which limit his independence in bathing, dressing, grooming, and functional transers. Pt's lives with his , who is available to assist him. Pt would benefit from inpatient occupational therapy to maximize safety and independence with ADLs and ADL transfers with the goal of returning home. Medicine Note: Length of Stay: [] Anticipated Discharge Destination: Home Tentative Discharge Date: [] Discharged to: []
[2017-12-11] MEDS: Atorvastatin* 80 MG TAB PO SCH (17:14)
--- NOTE | 2017-12-11 17:38 | PN ---
Progress Note Date of Service: 12/11/17 Note: YARON WHITING JR was visited. Therapy notes read and reviewed. He was discussed in interdisciplinary team rounds. He is still quite impaired but making gains. Emotional lability noted Current Medications: Active Medications Generic Name Dose Route Start Last Admin Trade Name Freq PRN Reason Stop Dose Admin Acetaminophen 650 mg 12/10/17 15:35 Tylenol Tab* PO Q6H PRN FEVER/PAIN Aspirin 81 mg 12/11/17 09:00 12/11/17 08:00 Aspirin Ec Tab* PO 81 mg DAILY MIKI Administration Atorvastatin Calcium 80 mg 12/10/17 17:00 12/11/17 17:14 Lipitor* PO 80 mg 1700 MIKI Administration Cephalexin HCl 500 mg 12/11/17 21:00 Keflex Cap* PO TID MIKI Clopidogrel Bisulfate 75 mg 12/11/17 09:00 12/11/17 08:00 Plavix Tab* PO 75 mg DAILY MIKI Administration Docusate Sodium 100 mg 12/10/17 21:00 12/11/17 08:01 Colace Cap* PO Not Given BID MIKI Hydrocortisone 1 applic 12/11/17 21:00 Hytone Cream 1%* TOPICAL BID MIKI Lisinopril 10 mg 12/10/17 21:00 12/11/17 08:00 Prinivil Tab* PO 10 mg BID MIKI Administration Magnesium Hydroxide 30 ml 12/10/17 15:35 Milk Of Magnesia Liq* PO Q6H PRN CONSTIPATION Metoprolol Succinate 50 mg 12/11/17 09:00 12/11/17 08:00 Toprol Xl Tab* PO 50 mg DAILY MIKI Administration Nicotine 1 patch 12/11/17 08:00 12/11/17 08:01 Nicotine Patch 21 Mg/24 Hr* TRANSDERM Not Given DAILY@0800 [facility] Nitroglycerin 0.4 mg 12/10/17 17:22 Nitroglycerin Tab 0.4 Mg* SL Q5M PRN ANGINA Pharmacy Profile Note 1 note 12/10/17 21:00 12/10/17 20:24 Nicotine Patch Removal Note* FOLLOW UP Not Given 2100 MIKI Senna 2 tab 12/10/17 15:35 Senokot Tab* PO BEDTIME PRN CONSTIPATION Vital Signs: Vital Signs Temp Pulse Resp BP Pulse Ox 97.9 F 59 18 171/65 98 12/11/17 06:01 12/11/17 06:01 12/11/17 06:01 12/11/17 06:01 12/11/17 16:16 Exam: HEENT: Left facial droop LUNGS: clear bilaterally HEART: Reg rhythm, II/ systolic murmur ABDOMEN: soft EXTREMITIES: decreased tone LUE. Old IV site erythematous and firm NEUROLOGIC: CN VII palsy on left. LUE 2/5, LLE 3-3+/5 Assessment/Plan: 1. 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 ASA/Plavix. Lipitor 2. Cellulitis, left arm: Keflex day 04/29 3. Nicotine Addiction: Nicotine Patch 4. STEMI, S/P Stent: Plavix. Toprol/Lisinopril/Lipitor 5. Thrombocytopenia: Stable. Check counts in a.m. 6. DVT Prophylaxis: TEDs. Avoiding anticoagulation due to platelets 7. Advanced Directives: Full Code 12/11/17 17:40
[2017-12-11] MEDS: Cephalexin CAP* 500 MG PO SCH (20:19)
[2017-12-11] MEDS: Hydrocortisone 1% CREAM* 30 GM TUBE TOPICAL SCH (20:21)
[2017-12-11] MEDS: Nicotine Patch Removal NOTE FOLLOW UP SCH (20:22)
[2017-12-12 05:29] LABS: ABS Basophils 0.1 10^3/ul (0-0.2); ABS Eosinophils 0.4 10^3/ul (0-0.6); ABS Lymphocytes 1.2 10^3/ul (1.0-4.8); ABS Monocytes 0.7 10^3/ul (0-0.8); ABS Neutrophils 3.9 10^3/ul (1.5-7.7); ABS Nucleated RBC 0 10^3/ul; Eosinophil % 6.7 % (0-6); Hematocrit 45 % (42-52); Hemoglobin 15.2 g/dl (14.0-18.0); Lymphocyte % 19.4 % (25-47); Mean Corpuscular HGB Conc 34 g/dl (31-36); Mean Corpuscular Hemoglobin 29 pg (27-31); Mean Corpuscular Volume 86 fL (80-94); Mean Platelet Volume 9.3 um3 (7.4-10.4); Nucleated Red Blood Cells % 0.1; Platelet Count 107 10^3/ul (150-450); Red Blood Count 5.24 10^6/ul (4.00-5.40); Red Cell Distribution Width 14 % (10.5-15); White Blood Count 6.4 10^3/ul (3.5-10.8)
[2017-12-12 05:45] LABS: EGFR Non-African American 87.3 (>60)
[2017-12-12] MEDS: Nicotine PATCH 21 MG/24 HR* PATCH TRANSDERM SCH (08:57)
[2017-12-12] MEDS: Metoprolol Succinate XL TAB* 50 MG PO SCH (08:58)
[2017-12-12] MEDS: Docusate CAP* 100 MG PO SCH ×2 (08:58→20:57)
[2017-12-12] MEDS: Clopidogrel TAB* 75 MG PO SCH (08:58)
[2017-12-12] MEDS: Lisinopril TAB* 10 MG PO SCH ×2 (08:58→20:56)
[2017-12-12] MEDS: Aspirin EC TAB* 81 MG TAB.EC PO SCH (08:58)
[2017-12-12] MEDS: Cephalexin CAP* 500 MG PO SCH ×3 (08:58→20:56)
[2017-12-12] MEDS: Hydrocortisone 1% CREAM* 30 GM TUBE TOPICAL SCH ×2 (08:59→20:57)
[2017-12-12] MEDS: Atorvastatin* 80 MG TAB PO SCH (16:55)
--- NOTE | 2017-12-12 18:54 | PN ---
Progress Note Date of Service: 12/12/17 Note: YARON WHITING JR was visited. Therapy notes read and reviewed. He feels the food on the cardiac diet is too bland and requests regular food. He has no complaints. The left arm is looking better Current Medications: Active Medications Generic Name Dose Route Start Last Admin Trade Name Freq PRN Reason Stop Dose Admin Acetaminophen 650 mg 12/10/17 15:35 Tylenol Tab* PO Q6H PRN FEVER/PAIN Aspirin 81 mg 12/11/17 09:00 12/12/17 08:58 Aspirin Ec Tab* PO 81 mg DAILY MIKI Administration Atorvastatin Calcium 80 mg 12/10/17 17:00 12/12/17 16:55 Lipitor* PO 80 mg 1700 MIKI Administration Cephalexin HCl 500 mg 12/11/17 21:00 12/12/17 14:04 Keflex Cap* PO 500 mg TID MIKI Administration Clopidogrel Bisulfate 75 mg 12/11/17 09:00 12/12/17 08:58 Plavix Tab* PO 75 mg DAILY MIKI Administration Docusate Sodium 100 mg 12/10/17 21:00 12/12/17 08:58 Colace Cap* PO Not Given BID MIKI Hydrocortisone 1 applic 12/11/17 21:00 12/12/17 08:59 Hytone Cream 1%* TOPICAL 1 applic BID MIKI Administration Lisinopril 10 mg 12/10/17 21:00 12/12/17 08:58 Prinivil Tab* PO 10 mg BID MIKI Administration Magnesium Hydroxide 30 ml 12/10/17 15:35 Milk Of Magnesia Liq* PO Q6H PRN CONSTIPATION Metoprolol Succinate 50 mg 12/11/17 09:00 12/12/17 08:58 Toprol Xl Tab* PO 50 mg DAILY MIKI Administration Nicotine 1 patch 12/11/17 08:00 12/12/17 08:57 Nicotine Patch 21 Mg/24 Hr* TRANSDERM Not Given DAILY@0800 MIKI Nitroglycerin 0.4 mg 12/10/17 17:22 Nitroglycerin Tab 0.4 Mg* SL Q5M PRN ANGINA Pharmacy Profile Note 1 note 12/10/17 21:00 12/11/17 20:22 Nicotine Patch Removal Note* FOLLOW UP Not Given 2100 MIKI Senna 2 tab 12/10/17 15:35 Senokot Tab* PO BEDTIME PRN CONSTIPATION Vital Signs: Vital Signs Temp Pulse Resp BP Pulse Ox 98.2 F 54 18 146/55 100 12/12/17 15:49 12/12/17 15:49 12/12/17 15:49 12/12/17 15:49 12/12/17 16:20 Lab Results: Laboratory Results - last 24 hr 12/12/17 12/12/17 05:09 05:09 WBC 6.4 RBC 5.24 Hgb 15.2 Hct 45 MCV 86 MCH 29 MCHC 34 RDW 14 Plt Count 107 L MPV 9.3 Neut % (Auto) 61.0 Lymph % (Auto) 19.4 L [place] % (Auto) 11.4 H Eos % (Auto) 6.7 H Baso % (Auto) 1.5 Absolute Neuts (auto) 3.9 Absolute Lymphs (auto) 1.2 Absolute Monos (auto) 0.7 Absolute Eos (auto) 0.4 Absolute Basos (auto) 0.1 Absolute Nucleated RBC 0 Nucleated RBC % 0.1 Sodium 140 Potassium 3.7 Chloride 108 Carbon Dioxide 26 Anion Gap 6 BUN 27 H Creatinine 0.87 Est GFR ( Amer) 105.6 Est GFR (Non-Af Amer) 87.3 BUN/Creatinine Ratio 31.0 H Glucose 105 H Calcium 9.2 Total Bilirubin 0.50 AST 21 ALT 20 Alkaline Phosphatase 85 Total Protein 5.9 L Albumin 3.5 Globulin 2.4 Albumin/Globulin Ratio 1.5 Exam: HEENT: Left facial droop LUNGS: clear bilaterally HEART: Reg rhythm, II/ systolic murmur ABDOMEN: soft EXTREMITIES: decreased tone LUE. Old IV site looks better NEUROLOGIC: CN VII palsy on left. LUE 2/5, LLE 3-3+/5 Assessment/Plan: 1. 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 ASA/Plavix. Lipitor 2. Cellulitis, left arm: Keflex day 27 3. Nicotine Addiction: Nicotine Patch 4. STEMI, S/P Stent: Plavix. Toprol/Lisinopril/Lipitor 5. Thrombocytopenia: Stable. Platelets 107K 6. DVT Prophylaxis: TEDs. Avoiding anticoagulation due to platelets 7. Advanced Directives: Full Code 12/12/17 18:55 12/12/17 18:56
[2017-12-12] MEDS: Nicotine Patch Removal NOTE FOLLOW UP SCH (20:58)
[2017-12-13] MEDS: Hydrocortisone 1% CREAM* 30 GM TUBE TOPICAL SCH ×2 (08:40→21:03)
[2017-12-13] MEDS: Docusate CAP* 100 MG PO SCH ×2 (09:34→20:52)
[2017-12-13] MEDS: Aspirin EC TAB* 81 MG TAB.EC PO SCH (09:36)
[2017-12-13] MEDS: Lisinopril TAB* 10 MG PO SCH ×2 (09:36→20:52)
[2017-12-13] MEDS: Cephalexin CAP* 500 MG PO SCH ×3 (09:37→20:52)
[2017-12-13] MEDS: Clopidogrel TAB* 75 MG PO SCH (09:37)
[2017-12-13] MEDS: Nicotine PATCH 21 MG/24 HR* PATCH TRANSDERM SCH (09:51)
[2017-12-13] MEDS: Metoprolol Succinate XL TAB* 50 MG PO SCH (09:52)
[2017-12-13] MEDS ORDERED: Metoprolol Succinate XL TAB* 25 MG PO ONE (09:54)
[2017-12-13] MEDS: Atorvastatin* 80 MG TAB PO SCH (17:01)
--- NOTE | 2017-12-13 19:08 | PN ---
Progress Note Date of Service: 12/13/17 Note: YARON WHIITNG JR was visited. Therapy notes read and reviewed. He was able to walk further with PT assist today and doing better overall. His HR is low in the 40's. I d/w cardiology and will lower his Toprol XL to 25 mg. Current Medications: Active Medications Generic Name Dose Route Start Last Admin Trade Name Freq PRN Reason Stop Dose Admin Acetaminophen 650 mg 12/10/17 15:35 Tylenol Tab* PO Q6H PRN FEVER/PAIN Aspirin 81 mg 12/11/17 09:00 12/13/17 09:36 Aspirin Ec Tab* PO 81 mg DAILY MIKI Administration Atorvastatin Calcium 80 mg 12/10/17 17:00 12/13/17 17:01 Lipitor* PO 80 mg 1700 MIKI Administration Cephalexin HCl 500 mg 12/11/17 21:00 12/13/17 14:06 Keflex Cap* PO 500 mg TID MIKI Administration Clopidogrel Bisulfate 75 mg 12/11/17 09:00 12/13/17 09:37 Plavix Tab* PO 75 mg DAILY MIKI Administration Docusate Sodium 100 mg 12/10/17 21:00 12/13/17 09:34 Colace Cap* PO Not Given BID MIKI Hydrocortisone 1 applic 12/11/17 21:00 12/13/17 08:40 Hytone Cream 1%* TOPICAL 1 applic BID MIKI Administration Lisinopril 10 mg 12/10/17 21:00 12/13/17 09:36 Prinivil Tab* PO 10 mg BID MIKI Administration Magnesium Hydroxide 30 ml 12/10/17 15:35 Milk Of Magnesia Liq* PO Q6H PRN CONSTIPATION Nicotine 1 patch 12/11/17 08:00 12/13/17 09:51 Nicotine Patch 21 Mg/24 Hr* TRANSDERM Not Given DAILY@0800 MIKI Nitroglycerin 0.4 mg 12/10/17 17:22 Nitroglycerin Tab 0.4 Mg* SL Q5M PRN ANGINA Pharmacy Profile Note 1 note 12/10/17 21:00 12/12/17 20:58 Nicotine Patch Removal Note* FOLLOW UP Not Given 2100 MIKI Senna 2 tab 12/10/17 15:35 Senokot Tab* PO BEDTIME PRN CONSTIPATION Vital Signs: Vital Signs Temp Pulse Resp BP Pulse Ox 97.9 F 46 18 167/50 100 12/13/17 16:31 08/23/18 16:31 12/13/17 16:31 12/13/17 16:31 12/13/17 17:26 Exam: HEENT: Left facial droop LUNGS: clear bilaterally HEART: Reg rhythm, II/ systolic murmur ABDOMEN: soft EXTREMITIES: starting to get increased tone LUE. Old IV site looks better NEUROLOGIC: CN VII palsy on left. LUE 2/5, LLE 3-4/5 Assessment/Plan: 1. 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 ASA/Plavix. Lipitor 2. Cellulitis, left arm: Keflex day 06/27 3. Nicotine Addiction: Nicotine Patch 4. STEMI, S/P Stent: Plavix. Toprol/Lisinopril/Lipitor; lower Toprol XL to 25 mg 5. Thrombocytopenia: Stable. Platelets 107K-stable. 6. DVT Prophylaxis: TEDs. Avoiding anticoagulation due to platelets 7. Aortic Stenosis: Stable 8. Advanced Directives: Full Code 12/13/17 19:11 12/13/17 19:12
[2017-12-13] MEDS: Nicotine Patch Removal NOTE FOLLOW UP SCH (19:42)
[2017-12-14] MEDS: Nicotine PATCH 21 MG/24 HR* PATCH TRANSDERM SCH (07:59)
[2017-12-14] MEDS: Hydrocortisone 1% CREAM* 30 GM TUBE TOPICAL SCH ×2 (08:38→21:10)
[2017-12-14] MEDS: Aspirin EC TAB* 81 MG TAB.EC PO SCH (09:06)
[2017-12-14] MEDS: Cephalexin CAP* 500 MG PO SCH ×3 (09:08→21:09)
[2017-12-14] MEDS: Clopidogrel TAB* 75 MG PO SCH (09:08)
[2017-12-14] MEDS: Docusate CAP* 100 MG PO SCH ×2 (09:09→21:10)
[2017-12-14] MEDS: Lisinopril TAB* 10 MG PO SCH ×2 (09:09→21:09)
--- NOTE | 2017-12-14 15:20 | PN ---
Progress Note Date of Service: 12/14/17 Note: YARON WHITING was visited. Therapy notes read and reviewed. Continues to express frustration over the recovery process. Still labile. 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 Current Medications: Active Medications Generic Name Dose Route Start Last Admin Trade Name Freq PRN Reason Stop Dose Admin Acetaminophen 650 mg 12/10/17 15:35 Tylenol Tab* PO Q6H PRN FEVER/PAIN Aspirin 81 mg 12/11/17 09:00 12/14/17 09:06 Aspirin Ec Tab* PO 81 mg DAILY MIKI Administration Atorvastatin Calcium 80 mg 12/10/17 17:00 12/13/17 17:01 Lipitor* PO 80 mg 1700 MIKI Administration Cephalexin HCl 500 mg 12/11/17 21:00 12/14/17 13:45 Keflex Cap* PO 500 mg TID MIKI Administration Clopidogrel Bisulfate 75 mg 12/11/17 09:00 12/14/17 09:08 Plavix Tab* PO 75 mg DAILY MIKI Administration Docusate Sodium 100 mg 12/10/17 21:00 12/14/17 09:09 Colace Cap* PO Not Given BID MIKI Fluoxetine HCl 10 mg 12/15/17 09:00 Prozac Cap* PO DAILY MIKI Hydrocortisone 1 applic 12/11/17 21:00 12/14/17 08:38 Hytone Cream 1%* TOPICAL 1 applic BID MIKI Administration Lisinopril 10 mg 12/10/17 21:00 12/14/17 09:09 Prinivil Tab* PO 10 mg BID MIKI Administration Magnesium Hydroxide 30 ml 12/10/17 15:35 Milk Of Magnesia Liq* PO Q6H PRN CONSTIPATION Nicotine 1 patch 12/11/17 08:00 12/14/17 07:59 Nicotine Patch 21 Mg/24 Hr* TRANSDERM Not Given DAILY@0800 MIKI Nitroglycerin 0.4 mg 12/10/17 17:22 Nitroglycerin Tab 0.4 Mg* SL Q5M PRN ANGINA Pharmacy Profile Note 1 note 12/10/17 21:00 12/13/17 19:42 Nicotine Patch Removal Note* FOLLOW UP Not Given 2100 MIKI Senna 2 tab 12/10/17 15:35 Senokot Tab* PO BEDTIME PRN CONSTIPATION Vital Signs: Vital Signs Temp Pulse Resp BP Pulse Ox 97.7 F 44 16 169/71 100 12/14/17 06:19 12/14/17 06:19 12/14/17 08:00 12/14/17 06:19 12/14/17 08:00 Exam: HEENT: Left facial droop LUNGS: clear bilaterally HEART: Reg rhythm, II/ systolic murmur ABDOMEN: soft EXTREMITIES: starting to get increased tone LUE. Old IV site looks better NEUROLOGIC: CN VII palsy on left. LUE 2/5, LLE 3-4/5 Assessment/Plan: 1. 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 ASA/Plavix. Lipitor. Add Prozac 2. Cellulitis, left arm: Keflex day 07/28 3. Nicotine Addiction: Nicotine Patch 4. STEMI, S/P Stent: Plavix. Toprol/Lisinopril/Lipitor; lower Toprol XL to 25 mg 5. Thrombocytopenia: Stable. Platelets 107K-stable. 6. DVT Prophylaxis: TEDs. Avoiding anticoagulation due to platelets 7. Aortic Stenosis: Stable 8. Advanced Directives: Full Code 9. Post Stroke Depression: Add Prozac 12/14/17 15:21
[2017-12-14] MEDS: Atorvastatin* 80 MG TAB PO SCH (16:57)
[2017-12-14] MEDS: Nicotine Patch Removal NOTE FOLLOW UP SCH (21:10)
[2017-12-15] MEDS: Lisinopril TAB* 10 MG PO SCH ×2 (08:20→20:04)
[2017-12-15] MEDS: Hydrocortisone 1% CREAM* 30 GM TUBE TOPICAL SCH ×2 (08:21→21:01)
[2017-12-15] MEDS: Aspirin EC TAB* 81 MG TAB.EC PO SCH (08:21)
[2017-12-15] MEDS: Docusate CAP* 100 MG PO SCH ×2 (08:21→20:02)
[2017-12-15] MEDS: Nicotine PATCH 21 MG/24 HR* PATCH TRANSDERM SCH (08:21)
[2017-12-15] MEDS: Cephalexin CAP* 500 MG PO SCH ×3 (08:21→20:04)
[2017-12-15] MEDS: Clopidogrel TAB* 75 MG PO SCH (08:21)
[2017-12-15] MEDS: FLUoxetine CAP* 10 MG PO SCH (08:21)
[2017-12-15] MEDS: Atorvastatin* 80 MG TAB PO SCH (17:08)
[2017-12-15] MEDS: Nicotine Patch Removal NOTE FOLLOW UP SCH (20:07)
--- NOTE | 2017-12-15 20:41 | PN ---
Progress Note Date of Service: 12/15/17 Note: YARON WHITING JR was visited. Therapy notes read and reviewed. Took first dose of Prozac with no bad effects. Feels good. Current Medications: Active Medications Generic Name Dose Route Start Last Admin Trade Name Freq PRN Reason Stop Dose Admin Acetaminophen 650 mg 12/10/17 15:35 Tylenol Tab* PO Q6H PRN FEVER/PAIN Aspirin 81 mg 12/11/17 09:00 12/15/17 08:21 Aspirin Ec Tab* PO 81 mg DAILY MIKI Administration Atorvastatin Calcium 80 mg 12/10/17 17:00 12/15/17 17:08 Lipitor* PO 80 mg 1700 MIKI Administration Cephalexin HCl 500 mg 12/11/17 21:00 12/15/17 20:04 Keflex Cap* PO 500 mg TID MIKI Administration Clopidogrel Bisulfate 75 mg 12/11/17 09:00 12/15/17 08:21 Plavix Tab* PO 75 mg DAILY MIKI Administration Docusate Sodium 100 mg 12/10/17 21:00 12/15/17 20:02 Colace Cap* PO Not Given BID MIKI Fluoxetine HCl 10 mg 12/15/17 09:00 12/15/17 08:21 Prozac Cap* PO 10 mg DAILY MIKI Administration Hydrocortisone 1 applic 12/11/17 21:00 12/15/17 08:21 Hytone Cream 1%* TOPICAL Not Given BID [facility] Lisinopril 10 mg 12/10/17 21:00 12/15/17 20:04 Prinivil Tab* PO 10 mg BID MIKI Administration Magnesium Hydroxide 30 ml 12/10/17 15:35 Milk Of Magnesia Liq* PO Q6H PRN CONSTIPATION Nicotine 1 patch 12/11/17 08:00 12/15/17 08:21 Nicotine Patch 21 Mg/24 Hr* TRANSDERM Not Given DAILY@0800 MIKI Nitroglycerin 0.4 mg 12/10/17 17:22 Nitroglycerin Tab 0.4 Mg* SL Q5M PRN ANGINA Pharmacy Profile Note 1 note 12/10/17 21:00 12/15/17 20:07 Nicotine Patch Removal Note* FOLLOW UP Not Given 2100 MIKI Senna 2 tab 12/10/17 15:35 Senokot Tab* PO BEDTIME PRN CONSTIPATION Vital Signs: Vital Signs Temp Pulse Resp BP Pulse Ox 97.9 F 51 20 166/55 99 12/15/17 15:30 12/15/17 15:30 12/15/17 16:11 12/15/17 15:30 12/15/17 16:11 Exam: HEENT: Left facial droop LUNGS: clear bilaterally HEART: Reg rhythm, II/ systolic murmur ABDOMEN: soft EXTREMITIES: starting to get increased tone LUE. Old IV site looks better NEUROLOGIC: CN VII palsy on left. LUE 2/5, LLE 3-4/5, dorsiflexion 0/5 Assessment/Plan: 1. 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 ASA/Plavix. Lipitor. Added Prozac 2. Cellulitis, left arm: Keflex day 08/27 3. Nicotine Addiction: Nicotine Patch 4. STEMI, S/P Stent: Plavix. Toprol/Lisinopril/Lipitor; lowered Toprol XL to 25 mg due to bradycardia 5. Thrombocytopenia: Stable. Platelets 107K-stable. 6. DVT Prophylaxis: TEDs. Avoiding anticoagulation due to low platelets 7. Aortic Stenosis: Stable 8. Advanced Directives: Full Code 9. Post Stroke Depression: Added Prozac 10. Hypertension: may need to increase Lisinopril 12/15/17 20:49
[2017-12-16] MEDS: Nicotine PATCH 21 MG/24 HR* PATCH TRANSDERM SCH (07:59)
[2017-12-16] MEDS: Docusate CAP* 100 MG PO SCH ×2 (08:00→20:21)
[2017-12-16] MEDS: Cephalexin CAP* 500 MG PO SCH ×3 (08:26→20:21)
[2017-12-16] MEDS: Clopidogrel TAB* 75 MG PO SCH (08:26)
[2017-12-16] MEDS: Aspirin EC TAB* 81 MG TAB.EC PO SCH (08:26)
[2017-12-16] MEDS: FLUoxetine CAP* 10 MG PO SCH (08:26)
[2017-12-16] MEDS: Lisinopril TAB* 10 MG PO SCH ×2 (08:26→20:21)
[2017-12-16] MEDS: Hydrocortisone 1% CREAM* 30 GM TUBE TOPICAL SCH ×2 (08:27→20:22)
--- NOTE | 2017-12-16 15:48 | PN ---
Progress Note Date of Service: 12/16/17 Note: YARON WHITING JR was visited. Nursing notes read and reviewed. He has no complaints. Tolerating Prozac Current Medications: Active Medications Generic Name Dose Route Start Last Admin Trade Name Freq PRN Reason Stop Dose Admin Acetaminophen 650 mg 12/10/17 15:35 Tylenol Tab* PO Q6H PRN FEVER/PAIN Aspirin 81 mg 12/11/17 09:00 12/16/17 08:26 Aspirin Ec Tab* PO 81 mg DAILY MIKI Administration Atorvastatin Calcium 80 mg 12/10/17 17:00 12/15/17 17:08 Lipitor* PO 80 mg 1700 MIKI Administration Cephalexin HCl 500 mg 12/11/17 21:00 12/16/17 14:14 Keflex Cap* PO 500 mg TID MIKI Administration Clopidogrel Bisulfate 75 mg 12/11/17 09:00 12/16/17 08:26 Plavix Tab* PO 75 mg DAILY MIKI Administration Docusate Sodium 100 mg 12/10/17 21:00 12/16/17 08:00 Colace Cap* PO Not Given BID MIKI Fluoxetine HCl 10 mg 12/15/17 09:00 12/16/17 08:26 Prozac Cap* PO 10 mg DAILY MIKI Administration Hydrocortisone 1 applic 12/11/17 21:00 12/16/17 08:27 Hytone Cream 1%* TOPICAL Not Given BID [facility] Lisinopril 10 mg 12/10/17 21:00 12/16/17 08:26 Prinivil Tab* PO 10 mg BID MIKI Administration Magnesium Hydroxide 30 ml 12/10/17 15:35 Milk Of Magnesia Liq* PO Q6H PRN CONSTIPATION Nicotine 1 patch 12/11/17 08:00 12/16/17 07:59 Nicotine Patch 21 Mg/24 Hr* TRANSDERM Not Given DAILY@0800 MIKI Nitroglycerin 0.4 mg 12/10/17 17:22 Nitroglycerin Tab 0.4 Mg* SL Q5M PRN ANGINA Pharmacy Profile Note 1 note 12/10/17 21:00 12/15/17 20:07 Nicotine Patch Removal Note* FOLLOW UP Not Given 2100 MIKI Senna 2 tab 12/10/17 15:35 Senokot Tab* PO BEDTIME PRN CONSTIPATION Vital Signs: Vital Signs Temp Pulse Resp BP Pulse Ox 97.7 F 59 18 150/58 96 12/16/17 05:53 12/16/17 08:00 12/16/17 15:28 12/16/17 05:53 12/16/17 05:53 Exam: HEENT: Left facial droop LUNGS: clear bilaterally HEART: Reg rhythm, II/ systolic murmur ABDOMEN: soft EXTREMITIES: starting to get increased tone LUE. Old IV site looks better NEUROLOGIC: CN VII palsy on left. LUE 2/5, LLE 3-4/5, dorsiflexion 0/5 Assessment/Plan: 1. 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 ASA/Plavix. Lipitor. Added Prozac 2. Cellulitis, left arm: Keflex day 09/27 3. Nicotine Addiction: Nicotine Patch 4. STEMI, S/P Stent: Plavix. Toprol/Lisinopril/Lipitor; lowered Toprol XL to 25 mg due to bradycardia 5. Thrombocytopenia: Stable. Platelets 107K-stable. 6. DVT Prophylaxis: TEDs. Avoiding anticoagulation due to low platelets 7. Aortic Stenosis: Stable 8. Advanced Directives: Full Code 9. Post Stroke Depression: Added Prozac 10. Hypertension: may need to increase Lisinopril 12/16/17 15:49
[2017-12-16] MEDS: Atorvastatin* 80 MG TAB PO SCH (17:01)
[2017-12-16] MEDS: Nicotine Patch Removal NOTE FOLLOW UP SCH (20:22)
[2017-12-17] MEDS ORDERED: Lisinopril TAB* 10 MG PO ONE (05:30)
[2017-12-17] MEDS: FLUoxetine CAP* 10 MG PO SCH (10:18)
[2017-12-17] MEDS: Clopidogrel TAB* 75 MG PO SCH (10:18)
[2017-12-17] MEDS: Cephalexin CAP* 500 MG PO SCH ×3 (10:18→20:26)
[2017-12-17] MEDS: Hydrocortisone 1% CREAM* 30 GM TUBE TOPICAL SCH ×2 (10:19→19:14)
[2017-12-17] MEDS: Docusate CAP* 100 MG PO SCH ×2 (10:19→19:14)
[2017-12-17] MEDS: Nicotine PATCH 21 MG/24 HR* PATCH TRANSDERM SCH (10:19)
[2017-12-17] MEDS: Aspirin EC TAB* 81 MG TAB.EC PO SCH (10:19)
[2017-12-17] MEDS: Lisinopril TAB* 10 MG PO SCH ×2 (11:59→20:26)
[2017-12-17] MEDS: Atorvastatin* 80 MG TAB PO SCH (16:55)
--- NOTE | 2017-12-17 17:20 | PN ---
Progress Note Date of Service: 12/17/17 Note: YARON WHITING JR was visited. Therapy notes read and reviewed. His BP has been a little elvated since we cut the Toprol. Will add HCTZ. He feels well otherwise Current Medications: Active Medications Generic Name Dose Route Start Last Admin Trade Name Freq PRN Reason Stop Dose Admin Acetaminophen 650 mg 12/10/17 15:35 Tylenol Tab* PO Q6H PRN FEVER/PAIN Aspirin 81 mg 12/11/17 09:00 12/17/17 10:19 Aspirin Ec Tab* PO 81 mg DAILY MIKI Administration Atorvastatin Calcium 80 mg 12/10/17 17:00 12/17/17 16:55 Lipitor* PO 80 mg 1700 MIKI Administration Cephalexin HCl 500 mg 12/11/17 21:00 12/17/17 14:27 Keflex Cap* PO 12/18/17 15:00 500 mg TID MIKI Administration Clopidogrel Bisulfate 75 mg 12/11/17 09:00 12/17/17 10:18 Plavix Tab* PO 75 mg DAILY MIKI Administration Docusate Sodium 100 mg 12/10/17 21:00 12/17/17 10:19 Colace Cap* PO Not Given BID MIKI Fluoxetine HCl 10 mg 12/15/17 09:00 12/17/17 10:18 Prozac Cap* PO 10 mg DAILY MIKI Administration Hydrocortisone 1 applic 12/11/17 21:00 12/17/17 10:19 Hytone Cream 1%* TOPICAL Not Given BID MIKI Lisinopril 20 mg 12/17/17 21:00 Prinivil Tab* PO BID MIKI Magnesium Hydroxide 30 ml 12/10/17 15:35 Milk Of Magnesia Liq* PO Q6H PRN CONSTIPATION Nicotine 1 patch 12/11/17 08:00 12/17/17 10:19 Nicotine Patch 21 Mg/24 Hr* TRANSDERM Not Given DAILY@0800 MIKI Nitroglycerin 0.4 mg 12/10/17 17:22 Nitroglycerin Tab 0.4 Mg* SL Q5M PRN ANGINA Pharmacy Profile Note 1 note 12/10/17 21:00 12/16/17 20:22 Nicotine Patch Removal Note* FOLLOW UP Not Given 2100 MIKI Senna 2 tab 12/10/17 15:35 Senokot Tab* PO BEDTIME PRN CONSTIPATION Vital Signs: Vital Signs Temp Pulse Resp BP Pulse Ox 97.9 F 53 18 170/64 100 12/17/17 15:54 12/17/17 15:54 12/17/17 15:54 12/17/17 15:54 12/17/17 16:14 Exam: HEENT: Left facial droop LUNGS: clear bilaterally HEART: Reg rhythm, II/ systolic murmur ABDOMEN: soft EXTREMITIES: starting to get increased tone LUE. Old IV site looks better NEUROLOGIC: CN VII palsy on left. LUE 2/5, LLE 3-4/5, dorsiflexion 0/5 Assessment/Plan: 1. 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 ASA/Plavix. Lipitor. Added Prozac 2. Cellulitis, left arm: Keflex day 10/27 3. Nicotine Addiction: Nicotine Patch 4. STEMI, S/P Stent: Plavix. Toprol/Lisinopril/Lipitor; lowered Toprol XL to 25 mg due to bradycardia 5. Thrombocytopenia: Stable. Platelets 107K-stable. 6. DVT Prophylaxis: TEDs. Avoiding anticoagulation due to low platelets 7. Aortic Stenosis: Stable 8. Advanced Directives: Full Code 9. Post Stroke Depression: Added Prozac 10. Hypertension: Increase Lisinopril to 20 BID. Add HCTZ 12/16/17 15:49 12/17/17 17:21
[2017-12-17] MEDS: Nicotine Patch Removal NOTE FOLLOW UP SCH (19:14)
[2017-12-18] MEDS: Nicotine PATCH 21 MG/24 HR* PATCH TRANSDERM SCH (07:39)
[2017-12-18] MEDS: Docusate CAP* 100 MG PO SCH ×2 (07:40→20:20)
[2017-12-18] MEDS: FLUoxetine CAP* 10 MG PO SCH (07:40)
[2017-12-18] MEDS: Clopidogrel TAB* 75 MG PO SCH (07:40)
[2017-12-18] MEDS: Aspirin EC TAB* 81 MG TAB.EC PO SCH (07:40)
[2017-12-18] MEDS: Cephalexin CAP* 500 MG PO SCH ×2 (07:40→14:10)
[2017-12-18] MEDS: Hydrochlorothiazide TAB* 25 MG PO SCH (07:40)
[2017-12-18] MEDS: Hydrocortisone 1% CREAM* 30 GM TUBE TOPICAL SCH ×2 (07:43→20:20)
[2017-12-18] MEDS: Lisinopril TAB* 10 MG PO SCH ×2 (07:43→20:29)
[2017-12-18] MEDS ORDERED: Metoprolol Succinate XL TAB* 25 MG PO ONE (11:25)
--- NOTE | 2017-12-18 12:56 | PMRUTEAM ---
PMRU: Team Meeting Current Status: Nursing: Current Status Skin Deviations [Left Lower Laceration Anterior Leg] Skin Deviations [Bilateral Rash Buttocks] Skin Deviations [Left Lower Previous Access Point Arm] Skin Deviations [Left Buttocks Rash ] Skin Deviations [Right Groin] Rash Skin Deviation Description [ healing. Left Lower Anterior Leg] Skin Deviation Description [ resolving Bilateral Buttocks] Skin Deviation Description [ previous IV infiltration. bump noted to proximal Left Lower Arm] side of site. site healing. Skin Deviation Description [ may benefit from something to stop itching of the Left Buttocks] rash Skin Deviation Description [ resolving Right Groin] Bladder Current Status Continent, urinal at night, in bathroom today (6) Bowel Current Status Continent, Nutrition Current Status Adequate Medication Current Status Verb understanding Physical Therapy: Current Status Bed Mobility Assistance Not Tested Transfer Moblility Assistance Supervision Transfer/Bed Mobility Rolling Walker Recommended Devices Transfer Mobility Comment cg to S x 1 depending on fatigue level. Ambulation Assistance Supervision Ambulation Assistive Devices Rolling Walker Number of Feet Patient 110' Ambulated Stairs Assistance Supervision Stairs Recommended Devices Two Rails Number of Stairs 5 Curb Not Tested Wheelchair Distance (ft) 100 Objective Comments pateint completes therapy stairs with s-CGa+1 with cuing. has good overall abiilty, though difficulty with LLE placement in descent. Occupational Therapy: Current Status Upper Body Dressing Supervision Lower Body Dressing Min Assist Bathing Min Assist Toileting Mod Assist Toileting Progress not yet assessed Toilet Transfer Contact Guard Assist Toilet Transfer Progress not yet assessed Shower Transfer Contact Guard Assist Eating Supervision Rec Therapy: Current Status Summary of Assessment and RT assessment complete and pt. is aware of Clinical Impression services. Pt. visits with his in the afternoons but is bright and interactive during leisure sessions. Treatment Goals Pt. will engage in leisure activities while on the unit. Treatment Plan Provide RT services and encourage involvement. Social Work: Current Status Discharge Plan return home with home care svs and family support Potential for Family Training pt's is involved and supportive Anticipated Discharge Home Destination Discharge With home care svs and family support Nutrition: Current Status Monitoring po intake appears to have improved since adm; now eating 75-100% of meals since diet changed to REGULAR on 12/13. No texture modifications necessary, no s/sx dysphagia. Labs 12/12 primarily unremarkable; electrolytes wnl. Anticipate weekly lab draw 12/19. Skin remains intact. Bowel pattern also regulated w/BMs q 1-2 days. Appears to be meeting goals as outlined below. Goals: Physical Therapy: Initial Goals Bed Mobility Assistance Independent Transfer Mobility Assistance Independent Transfer/Bed Mobility Small Base Quad Cane Recommended Devices Ambulation Independent Ambulation Recommended Devices Small Base Quad Cane Ambulation Distance 150 Wheelchair Propulsion Ability Independent Stairs Assistance Independent Stair Recommended Devices One Rail Number of Stairs 12 Home Exercise Program Independent Assistance Physical Therapy: Updated Goals Bed Mobility Assistance Independent Transfer Mobility Assistance Independent Transfer/Bed Mobility Small Base Quad Cane Recommended Devices Ambulation Assistance Independent Ambulation Assistive Devices Small Base Quad Cane Ambulation Distance (ft) 150 Stairs Assistance Independent Stairs Recommended Devices One Rail Number of Stairs 12 Occupational Therapy: Initial Goals Goals to be Completed in (Days 18-25 days ) Upper Body Bathing Routine Independent Lower Body Bathing Routine Modified Independent with Upper Body Dressing Routine Independent Lower Body Dressing Routine Modified Independent with Toilet Hygeine and Clothing Modified Independent with Management Routine Toilet Transfer Routine Modified Independent with Tub Transfer Routine Modified Independent with Functional Transfers for ADL Modified Independent with Grooming Routine Independent Feeding Routine Independent Light Housekeeping Tasks Modified Independent with Nursing: Goals Bladder Goal 7 Independent Bowel Goal 7 Independent Nutrition Goal Independent Medication Goal Independent Nutrition: Goals Intervention Goals 1. improved and adequate po intake to maintain stable wt, lean body mass, and hydration 2. pt will tolerate regular diet textures and liquid consistency without s/sx dysphagia 3. achieve and maintain serum electrolytes within normal ranges 4. pt will continue to avoid grapefruit/ grapefruit juice on statin therapy Social Work: Goals Discharge Plan return home with home care svs and family support Potential for Family Training pt's is involved and supportive Anticipated Discharge Home Destination Discharge With home care svs and family support Care Plan: Care Plan ADL's - Improve/Maintain Start: 12/10/17 15:42 Freq: DAILY Status: Active Target: Protocol: Activity Type Activity Date Activity User E-Sign Co-Sign Detail Recorded Client Recorded Date Recorded By Document 12/17/17 15:10 [id number] 12/17/17 15:10 [id number] 12/17/17 15:10 PMRU Outcome: ADL's/ADL Transfers Orders/Interventions Occupational Therapy Evaluation & Treatment Communication Tool in Patient Room Device Yes Address Deficits Secondary To: R CVA Patient to receive OT 5x/wk for 60-120 Therex min/day Self Care Management Group Therapy Neuromuscular ReEducation UE/LE ADL's with Assist Yes: Jimmy ADL Transfers with Assist Yes: Jimmy Toileting: Transfers,Clothing Management Yes: Jimmy ,Hygeine w/Assist Light Kitchen/Laundry w/Assist Yes: Angie Progression Toward Outcome/Goals Progressing Outcome/Goals Met Pt demonstrates improved functional use of LUE, including grasping deodorant and hand-held shower. Pt dries distal LE and dons shoes today. Pt requires less assistance during transfers. DVT Prophylaxis- Improve/Maintain Start: 12/12/17 16:24 Freq: QSHIFT Status: Active Target: Protocol: Activity Type Activity Date Activity User E-Sign Co-Sign Detail Recorded Client Recorded Date Recorded By Document 12/18/17 01:23 [email or web address] 12/18/17 01:23 12/18/17 01:23 PMRU Outcome: DVT Prophylaxis Outcome/Goals Remains Free of DVT TEDS Stockings on Every AM, Off at HS Progression Toward Outcome/Goals Progressing Mobility-Improve/Maintain Start: 12/12/17 07:36 Freq: DAILY@0400,1600 Status: Active Target: Protocol: Activity Type Activity Date Activity User E-Sign Co-Sign Detail Recorded Client Recorded Date Recorded By Document 12/18/17 04:00 [id number] 12/18/17 04:29 [id number] 12/18/17 04:00 Outcome: Mobility Outcome/Goals Maintain/ Achieve Baseline Mobility Status Improve Mobility Status Demonstrates Proper Use of Assistive Devices Free from Complications of Immobility Progression Toward Outcome/Goals Progressing Neurological- Improve/Maintain Start: 12/12/17 16:24 Freq: QSHIFT Status: Active Target: Protocol: Activity Type Activity Date Activity User E-Sign Co-Sign Detail Recorded Client Recorded Date Recorded By Document 12/18/17 01:23 [id number] 12/18/17 01:23 [id number] 12/18/17 01:23 PMRU Outcome: Neurological Weakness/Aphasia Weakness Outcome/Goals Maintain/ Achieve Baseline Neurological Status Improve Neurological Status Maintain/ Improve Strength/ROM Progression Toward Outcome/Goals Progressing Neurological-Improve/Maintain Start: 12/12/17 07:36 Freq: DAILY@0400,1600 Status: Active Target: Protocol: Activity Type Activity Date Activity User E-Sign Co-Sign Detail Recorded Client Recorded Date Recorded By Document 12/18/17 04:00 [id number] 12/18/17 04:29 [id number] 12/18/17 04:00 Outcome: Neurological Outcome/Goals Maintain/ Achieve Baseline Neurological Status Improve Neurological Status Maintain/ Improve Strength/ROM Progression Toward Outcome/Goals Progressing Safety- Improve/Maintain Start: 12/12/17 16:24 Freq: QSHIFT Status: Active Target: Protocol: Activity Type Activity Date Activity User E-Sign Co-Sign Detail Recorded Client Recorded Date Recorded By Document 12/18/17 01:23 [id number] 12/18/17 01:23 [id number] 12/18/17 01:23 PMRU Outcome: Safety Outcome/Goals Remain Free of Injury or Harm Cooperates with Safety Measures for Least Restrictive Environment Progression Toward Outcome/Goals Progressing Skin- Improve/Maintain Start: 12/12/17 16:24 Freq: QSHIFT Status: Active Target: Protocol: Activity Type Activity Date Activity User E-Sign Co-Sign Detail Recorded Client Recorded Date Recorded By Document 12/18/17 01:23 [id number] 12/18/17 01:23 [id number] 12/18/17 01:23 PMRU Outcome: Skin Skin Risk Level Medium Outcome/Goals Maintain/ Improve Skin Intergrity Progression Toward Outcome/Goals Progressing Medicine Note: Length of Stay: 2 weeks Anticipated Discharge Destination: Home Tentative Discharge Date: 01/01/18 Discharged to: Home
[2017-12-18] MEDS: Atorvastatin* 80 MG TAB PO SCH (16:53)
--- NOTE | 2017-12-18 18:33 | PN ---
Progress Note Date of Service: 12/18/17 Note: YARON WHITING JR was visited. Therapy notes read and reviewed. He is doing well , left leg still slightly unsteady. He was discussed in interdisciplinary team rounds. His BP has been slightly high, noted that his Toprol fell off MAR. Restarted Current Medications: Active Medications Generic Name Dose Route Start Last Admin Trade Name Freq PRN Reason Stop Dose Admin Acetaminophen 650 mg 12/10/17 15:35 Tylenol Tab* PO Q6H PRN FEVER/PAIN Aspirin 81 mg 12/11/17 09:00 12/18/17 07:40 Aspirin Ec Tab* PO 81 mg DAILY MIKI Administration Atorvastatin Calcium 80 mg 12/10/17 17:00 12/18/17 16:53 Lipitor* PO 80 mg 1700 MIKI Administration Clopidogrel Bisulfate 75 mg 12/11/17 09:00 12/18/17 07:40 Plavix Tab* PO 75 mg DAILY MIKI Administration Docusate Sodium 100 mg 12/10/17 21:00 12/18/17 07:40 Colace Cap* PO Not Given BID MIKI Fluoxetine HCl 10 mg 12/15/17 09:00 12/18/17 07:40 Prozac Cap* PO 10 mg DAILY MIKI Administration Hydrochlorothiazide 12.5 mg 12/18/17 09:00 12/18/17 07:40 Hydrodiuril Tab* PO 12.5 mg DAILY MIKI Administration Hydrocortisone 1 applic 12/11/17 21:00 12/18/17 07:43 Hytone Cream 1%* TOPICAL Not Given BID [facility] Lisinopril 20 mg 12/17/17 21:00 12/18/17 07:43 Prinivil Tab* PO 20 mg BID MIKI Administration Magnesium Hydroxide 30 ml 12/10/17 15:35 Milk Of Magnesia Liq* PO Q6H PRN CONSTIPATION Metoprolol Succinate 25 mg 12/19/17 09:00 Toprol Xl Tab* PO DAILY MIKI Nicotine 1 patch 12/11/17 08:00 12/18/17 07:39 Nicotine Patch 21 Mg/24 Hr* TRANSDERM Not Given DAILY@0800 [facility] Nitroglycerin 0.4 mg 12/10/17 17:22 Nitroglycerin Tab 0.4 Mg* SL Q5M PRN ANGINA Pharmacy Profile Note 1 note 12/10/17 21:00 12/17/17 19:14 Nicotine Patch Removal Note* FOLLOW UP Not Given 2100 MIKI Senna 2 tab 12/10/17 15:35 Senokot Tab* PO BEDTIME PRN CONSTIPATION Vital Signs: Vital Signs Temp Pulse Resp BP Pulse Ox 97.9 F 51 18 167/67 98 12/18/17 15:53 12/18/17 15:53 12/18/17 15:53 12/18/17 15:53 12/18/17 15:53 Exam: HEENT: Left facial droop LUNGS: clear bilaterally HEART: Reg rhythm, II/ systolic murmur ABDOMEN: soft EXTREMITIES: starting to get increased tone LUE. Old IV site looks better NEUROLOGIC: CN VII palsy on left. LUE 2/5, LLE 3-4/5, dorsiflexion 0/5 Assessment/Plan: 1. 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 ASA/Plavix. Lipitor. Added Prozac 2. Cellulitis, left arm: Keflex day 10/27 3. Nicotine Addiction: Nicotine Patch 4. STEMI, S/P Stent: Plavix. Toprol/Lisinopril/Lipitor; restarted Toprol 5. Thrombocytopenia: Stable. Platelets 107K-stable. 6. DVT Prophylaxis: TEDs. Avoiding anticoagulation due to low platelets 7. Aortic Stenosis: Stable 8. Advanced Directives: Full Code 9. Post Stroke Depression: Added Prozac 10. Hypertension: Increase Lisinopril to 20 BID. Added HCTZ 12/18/17 18:35
[2017-12-18] MEDS: Nicotine Patch Removal NOTE FOLLOW UP SCH (20:20)
[2017-12-19 05:10] LABS: ABS Basophils 0.1 10^3/ul (0-0.2); ABS Eosinophils 0.4 10^3/ul (0-0.6); ABS Lymphocytes 1.5 10^3/ul (1.0-4.8); ABS Monocytes 0.5 10^3/ul (0-0.8); ABS Nucleated RBC 0 10^3/ul; Eosinophil % 6.2 % (0-6); Hematocrit 42 % (42-52); Hemoglobin 14.2 g/dl (14.0-18.0); Lymphocyte % 22.7 % (25-47); Mean Corpuscular HGB Conc 34 g/dl (31-36); Mean Corpuscular Hemoglobin 29 pg (27-31); Mean Corpuscular Volume 86 fL (80-94); Mean Platelet Volume 9.4 um3 (7.4-10.4); Nucleated Red Blood Cells % 0; Platelet Count 115 10^3/ul (150-450); Red Blood Count 4.86 10^6/ul (4.00-5.40); Red Cell Distribution Width 14 % (10.5-15); White Blood Count 6.4 10^3/ul (3.5-10.8)
[2017-12-19] MEDS: Clopidogrel TAB* 75 MG PO SCH (08:00)
[2017-12-19] MEDS: Aspirin EC TAB* 81 MG TAB.EC PO SCH (08:00)
[2017-12-19] MEDS: Hydrochlorothiazide TAB* 25 MG PO SCH (08:00)
[2017-12-19] MEDS: FLUoxetine CAP* 10 MG PO SCH (08:00)
[2017-12-19] MEDS: Metoprolol Succinate XL TAB* 25 MG PO SCH (08:01)
[2017-12-19] MEDS: Lisinopril TAB* 10 MG PO SCH ×2 (08:01→20:08)
[2017-12-19] MEDS: Hydrocortisone 1% CREAM* 30 GM TUBE TOPICAL SCH ×2 (08:07→19:52)
[2017-12-19] MEDS: Nicotine PATCH 21 MG/24 HR* PATCH TRANSDERM SCH (08:07)
[2017-12-19] MEDS: Docusate CAP* 100 MG PO SCH ×2 (08:07→19:52)
[2017-12-19] MEDS: Atorvastatin* 80 MG TAB PO SCH (16:52)
--- NOTE | 2017-12-19 18:46 | PN ---
Progress Note Date of Service: 12/19/17 Note: YARON WHITING JR was visited. Therapy notes read and reviewed. He is doing better. He is not sure he wants to stay the holiday weekend given his large copay. He has tolerated Prozac and looks pretty good. Current Medications: Active Medications Generic Name Dose Route Start Last Admin Trade Name Freq PRN Reason Stop Dose Admin Acetaminophen 650 mg 12/10/17 15:35 Tylenol Tab* PO Q6H PRN FEVER/PAIN Aspirin 81 mg 12/11/17 09:00 12/19/17 08:00 Aspirin Ec Tab* PO 81 mg DAILY MIKI Administration Atorvastatin Calcium 80 mg 12/10/17 17:00 12/19/17 16:52 Lipitor* PO 80 mg 1700 MIKI Administration Clopidogrel Bisulfate 75 mg 12/11/17 09:00 12/19/17 08:00 Plavix Tab* PO 75 mg DAILY MIKI Administration Docusate Sodium 100 mg 12/10/17 21:00 12/19/17 08:07 Colace Cap* PO Not Given BID MIKI Fluoxetine HCl 10 mg 12/15/17 09:00 12/19/17 08:00 Prozac Cap* PO 10 mg DAILY MIKI Administration Hydrochlorothiazide 12.5 mg 12/18/17 09:00 12/19/17 08:00 Hydrodiuril Tab* PO 12.5 mg DAILY MIKI Administration Hydrocortisone 1 applic 12/11/17 21:00 12/19/17 08:07 Hytone Cream 1%* TOPICAL Not Given BID IMKI Lisinopril 20 mg 12/17/17 21:00 12/19/17 08:01 Prinivil Tab* PO 20 mg BID MIKI Administration Magnesium Hydroxide 30 ml 12/10/17 15:35 Milk Of Magnesia Liq* PO Q6H PRN CONSTIPATION Metoprolol Succinate 25 mg 12/19/17 09:00 12/19/17 08:01 Toprol Xl Tab* PO 25 mg DAILY MIKI Administration Nicotine 1 patch 12/11/17 08:00 12/19/17 08:07 Nicotine Patch 21 Mg/24 Hr* TRANSDERM Not Given DAILY@0800 MIKI Nitroglycerin 0.4 mg 12/10/17 17:22 Nitroglycerin Tab 0.4 Mg* SL Q5M PRN ANGINA Pharmacy Profile Note 1 note 12/10/17 21:00 12/18/17 20:20 Nicotine Patch Removal Note* FOLLOW UP Not Given 2100 MIKI Senna 2 tab 12/10/17 15:35 Senokot Tab* PO BEDTIME PRN CONSTIPATION Vital Signs: Vital Signs Temp Pulse Resp BP Pulse Ox 98.3 F 48 18 148/57 100 12/19/17 16:04 12/19/17 16:04 12/19/17 16:04 12/19/17 16:04 12/19/17 18:31 Lab Results: Laboratory Results - last 24 hr 12/19/17 12/19/17 04:40 04:40 WBC 6.4 RBC 4.86 Hgb 14.2 Hct 42 MCV 86 MCH 29 MCHC 34 RDW 14 Plt Count 115 L MPV 9.4 Neut % (Auto) 61.8 Lymph % (Auto) 22.7 L [place] % (Auto) 8.2 H Eos % (Auto) 6.2 H Baso % (Auto) 1.1 Absolute Neuts (auto) 4.0 Absolute Lymphs (auto) 1.5 Absolute Monos (auto) 0.5 Absolute Eos (auto) 0.4 Absolute Basos (auto) 0.1 Absolute Nucleated RBC 0 Nucleated RBC % 0 Sodium 139 Potassium 4.1 Chloride 106 Carbon Dioxide 29 Anion Gap 4 BUN 22 Creatinine 0.89 Est GFR ( Amer) 102.9 Est GFR (Non-Af Amer) 85.0 BUN/Creatinine Ratio 24.7 H Glucose 96 Calcium 9.1 Total Bilirubin 0.50 AST 21 ALT 25 Alkaline Phosphatase 77 Total Protein 5.9 L Albumin 3.6 Globulin 2.3 Albumin/Globulin Ratio 1.6 Exam: HEENT: Left facial droop LUNGS: clear bilaterally HEART: Reg rhythm, II/ systolic murmur ABDOMEN: soft EXTREMITIES: starting to get increased tone LUE. Old IV site looks better NEUROLOGIC: CN VII palsy on left. LUE 2/5, LLE 3-4/5, dorsiflexion 0/5 Assessment/Plan: 1. 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 ASA/Plavix. Lipitor. Prozac 2. Nicotine Addiction: Nicotine Patch 3. STEMI, S/P Stent: Plavix. Toprol/Lisinopril/Lipitor 4. Thrombocytopenia: Stable. Platelets 115K-stable. 5. DVT Prophylaxis: TEDs. Avoiding anticoagulation due to low platelets 6. Aortic Stenosis: Stable 7. Advanced Directives: Full Code 8. Post Stroke Depression: Prozac 9. Hypertension: Lisinopril/HCTZ/Toprol 12/19/17 18:46 12/19/17 18:47 12/19/17 18:49
[2017-12-19] MEDS: Nicotine Patch Removal NOTE FOLLOW UP SCH (19:53)
[2017-12-20] MEDS: Nicotine PATCH 21 MG/24 HR* PATCH TRANSDERM SCH (08:51)
[2017-12-20] MEDS: Docusate CAP* 100 MG PO SCH ×2 (08:53→19:57)
[2017-12-20] MEDS: Hydrocortisone 1% CREAM* 30 GM TUBE TOPICAL SCH ×2 (08:53→19:57)
[2017-12-20] MEDS: Metoprolol Succinate XL TAB* 25 MG PO SCH (09:07)
[2017-12-20] MEDS: Clopidogrel TAB* 75 MG PO SCH (09:07)
[2017-12-20] MEDS: Hydrochlorothiazide TAB* 25 MG PO SCH (09:07)
[2017-12-20] MEDS: Lisinopril TAB* 10 MG PO SCH ×2 (09:07→19:56)
[2017-12-20] MEDS: Aspirin EC TAB* 81 MG TAB.EC PO SCH (09:07)
[2017-12-20] MEDS: FLUoxetine CAP* 10 MG PO SCH (09:07)
--- NOTE | 2017-12-20 17:02 | PN ---
Progress Note Date of Service: 12/20/17 Note: YARON WHITING JR was visited. Therapy notes read and reviewed. He would like to go home tomorrow. I re-enforced the importance of rehab over the next few months. He can walk safely. Will need Plavix for the next year (for his recent stent) Current Medications: Active Medications Generic Name Dose Route Start Last Admin Trade Name Freq PRN Reason Stop Dose Admin Acetaminophen 650 mg 12/10/17 15:35 Tylenol Tab* PO Q6H PRN FEVER/PAIN Aspirin 81 mg 12/11/17 09:00 12/20/17 09:07 Aspirin Ec Tab* PO 81 mg DAILY MIKI Administration Atorvastatin Calcium 80 mg 12/10/17 17:00 12/19/17 16:52 Lipitor* PO 80 mg 1700 MIKI Administration Clopidogrel Bisulfate 75 mg 12/11/17 09:00 12/20/17 09:07 Plavix Tab* PO 75 mg DAILY MIKI Administration Docusate Sodium 100 mg 12/10/17 21:00 12/20/17 08:53 Colace Cap* PO Not Given BID MIKI Fluoxetine HCl 10 mg 12/15/17 09:00 12/20/17 09:07 Prozac Cap* PO 10 mg DAILY MIKI Administration Hydrochlorothiazide 12.5 mg 12/18/17 09:00 12/20/17 09:07 Hydrodiuril Tab* PO 12.5 mg DAILY MIKI Administration Hydrocortisone 1 applic 12/11/17 21:00 12/20/17 08:53 Hytone Cream 1%* TOPICAL Not Given BID MIKI Lisinopril 20 mg 12/17/17 21:00 12/20/17 09:07 Prinivil Tab* PO 20 mg BID MIKI Administration Magnesium Hydroxide 30 ml 12/10/17 15:35 Milk Of Magnesia Liq* PO Q6H PRN CONSTIPATION Metoprolol Succinate 25 mg 12/19/17 09:00 12/20/17 09:07 Toprol Xl Tab* PO 25 mg DAILY MIKI Administration Nicotine 1 patch 12/11/17 08:00 12/20/17 08:51 Nicotine Patch 21 Mg/24 Hr* TRANSDERM Not Given DAILY@0800 MIKI Nitroglycerin 0.4 mg 12/10/17 17:22 Nitroglycerin Tab 0.4 Mg* SL Q5M PRN ANGINA Pharmacy Profile Note 1 note 12/10/17 21:00 12/19/17 19:53 Nicotine Patch Removal Note* FOLLOW UP Not Given 2100 MIKI Senna 2 tab 12/10/17 15:35 Senokot Tab* PO BEDTIME PRN CONSTIPATION Vital Signs: Vital Signs Temp Pulse Resp BP Pulse Ox 97.9 F 54 18 152/71 98 12/20/17 05:28 12/20/17 05:28 12/20/17 16:23 12/20/17 05:28 12/20/17 05:28 Exam: HEENT: Left facial droop LUNGS: clear bilaterally HEART: Reg rhythm, II/ systolic murmur ABDOMEN: soft EXTREMITIES: starting to get increased tone LUE. Old IV site looks better NEUROLOGIC: CN VII palsy on left. LUE 2/5, LLE 3-4/5, dorsiflexion 0/5 Assessment/Plan: 1. 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 ASA/Plavix. Lipitor. Prozac 2. Nicotine Addiction: Nicotine Patch 3. STEMI, S/P Stent: Plavix. Toprol/Lisinopril/Lipitor 4. Thrombocytopenia: Stable. Platelets 115K-stable. 5. DVT Prophylaxis: TEDs. Avoiding anticoagulation due to low platelets 6. Aortic Stenosis: Stable 7. Advanced Directives: Full Code 8. Post Stroke Depression: Prozac 9. Hypertension: Lisinopril/HCTZ/Toprol 12/20/17 17:02
[2017-12-20] MEDS: Atorvastatin* 80 MG TAB PO SCH (17:15)
[2017-12-20] MEDS: Nicotine Patch Removal NOTE FOLLOW UP SCH (19:57)
[2017-12-21 06:36] VITALS: BP 143/45
[2017-12-21] MEDS: Nicotine PATCH 21 MG/24 HR* PATCH TRANSDERM SCH (08:12)
[2017-12-21] MEDS: FLUoxetine CAP* 10 MG PO SCH (10:46)
[2017-12-21] MEDS: Aspirin EC TAB* 81 MG TAB.EC PO SCH (10:46)
[2017-12-21] MEDS: Lisinopril TAB* 10 MG PO SCH (10:46)
[2017-12-21] MEDS: Clopidogrel TAB* 75 MG PO SCH (10:46)
[2017-12-21] MEDS: Docusate CAP* 100 MG PO SCH (10:46)
[2017-12-21] MEDS: Hydrochlorothiazide TAB* 25 MG PO SCH (10:46)
[2017-12-21] MEDS: Metoprolol Succinate XL TAB* 25 MG PO SCH (10:47)
--- NOTE | 2017-12-21 10:55 | PN ---
Progress Note Date of Service: 12/21/17 Note: YARON WHITING JR was visited. Nursing and therapy notes read and reviewed. Ready for discharge home today. Current Medications: Active Medications Generic Name Dose Route Start Last Admin Trade Name Freq PRN Reason Stop Dose Admin Acetaminophen 650 mg 12/10/17 15:35 Tylenol Tab* PO Q6H PRN FEVER/PAIN Aspirin 81 mg 12/11/17 09:00 12/21/17 10:46 Aspirin Ec Tab* PO 81 mg DAILY MIKI Administration Atorvastatin Calcium 80 mg 12/10/17 17:00 12/20/17 17:15 Lipitor* PO 80 mg 1700 MIKI Administration Clopidogrel Bisulfate 75 mg 12/11/17 09:00 12/21/17 10:46 Plavix Tab* PO 75 mg DAILY MIKI Administration Docusate Sodium 100 mg 12/10/17 21:00 12/21/17 10:46 Colace Cap* PO 100 mg BID MIKI Administration Fluoxetine HCl 10 mg 12/15/17 09:00 12/21/17 10:46 Prozac Cap* PO 10 mg DAILY MIKI Administration Hydrochlorothiazide 12.5 mg 12/18/17 09:00 12/21/17 10:46 Hydrodiuril Tab* PO 12.5 mg DAILY [facility] Administration Hydrocortisone 1 applic 12/11/17 21:00 12/20/17 19:57 Hytone Cream 1%* TOPICAL Not Given BID [facility] Lisinopril 20 mg 12/17/17 21:00 12/21/17 10:46 Prinivil Tab* PO 20 mg BID MIKI Administration Magnesium Hydroxide 30 ml 12/10/17 15:35 Milk Of Magnesia Liq* PO Q6H PRN CONSTIPATION Metoprolol Succinate 25 mg 12/19/17 09:00 12/21/17 10:47 Toprol Xl Tab* PO 25 mg DAILY MIKI Administration Nicotine 1 patch 12/11/17 08:00 12/21/17 08:12 Nicotine Patch 21 Mg/24 Hr* TRANSDERM Not Given DAILY@0800 [facility] Nitroglycerin 0.4 mg 12/10/17 17:22 Nitroglycerin Tab 0.4 Mg* SL Q5M PRN ANGINA Pharmacy Profile Note 1 note 12/10/17 21:00 12/20/17 19:57 Nicotine Patch Removal Note* FOLLOW UP Not Given 2100 [facility] Senna 2 tab 08/20/18 15:35 Senokot Tab* PO BEDTIME PRN CONSTIPATION Vital Signs: Vital Signs Temp Pulse Resp BP Pulse Ox 97.8 F 51 24 143/45 98 12/21/17 05:17 12/21/17 05:17 12/21/17 05:17 12/21/17 05:17 12/21/17 05:17 Exam: GEN: no acute distress. alert and appropriate HEENT: Left facial droop LUNGS: clear to auscultation bilaterally HEART: Regular rate and rhythm ABDOMEN: soft, + bowel sounds, non-tender, non-distended EXTREMITIES: some tone LUE. NEURO: 2/5 in LUE. LLE 3-4/5 with 0/5 DF. Assessment/Plan: 1. 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 Lipitor. Prozac. f/u with Dr. Harvey in 4-6 weeks. 2. Nicotine Addiction: Nicotine Patch 3. STEMI, S/P Stent: Plavix. Toprol/Lisinopril/Lipitor 4. Thrombocytopenia: Stable. Platelets 115K-stable. 5. DVT Prophylaxis: TEDs. Avoiding anticoagulation due to low platelets 6. Aortic Stenosis: Stable 7. Advanced Directives: Full Code 8. Post Stroke Depression: Prozac 9. Hypertension: Lisinopril/HCTZ/Toprol 10. Dispo: Training done with SO yesterday and will d/c home today. 12/21/17 11:00
[2017-12-21] MEDS: Hydrocortisone 1% CREAM* 30 GM TUBE TOPICAL SCH (12:30)
--- NOTE | 2017-12-21 21:28 | DS ---
CC: Dr. Varghese; Dr. Molina; Dr. Harvey REHABILITATION DISCHARGE SUMMARY: DATE OF ADMISSION: 12/10/17 DATE OF DISCHARGE: 12/21/17 REASON FOR ADMISSION: Right pontine stroke with left hemiparesis. PRIMARY CARE PROVIDER: Dr. Varghese. TRANSFER MAN: Dr. Molina. NEUROLOGIST: Dr. Harvey. HISTORY OF PRESENT ILLNESS: For full details of his acute hospitalization leading up to his admission, please see the note dictated by Dr. Ross on . REHABILITATION COURSE: During his time on the [facility], he initially was allowed to have permissive hypertension. Later, metoprolol was reintroduced, but at a lower dose of 25 mg daily due to bradycardia. Generally, his heart rate runs in the 50s and he seems to tolerate this without any symptoms. He continued his lisinopril for blood pressure control as well. He was started on Prozac to assist with depression related to stroke as well as to help promote motor recovery. He has continued to tolerate aspirin and Plavix, but has been noted to have mildly low platelets. It had improved during his stay. His last platelet count was 115. He was maintained on a nicotine patch to continue with smoking cessation, but will not go home with this. He is encouraged to stop smoking and has committed to doing that. He participated well with physical therapy during his stay and at the time of discharge, he is independent with bed mobility. He requires supervision for transfers using a two-wheeled walker and supervision for ambulating using a two- wheeled walker. He requires supervision for 5 steps using 2 rails and for his home exercise program. His significant other who he lives with came in for family training and is taking on that responsibility. He also participated well in occupational therapy during his stay. He is independent in eating with set up. He needs steadying assistance using a walker and tub transfer, bench and grab bars for bathing and tub transfers. He requires steadying assistance with walker during standing to pull up his shorts, underwear when he is dressing. He needs steadying assistance using a walker for toileting and toilet transfers. Any home management or cooking should be done while seated whenever possible and initially he will need supervision for safety. He has been given a home exercise program. Once again, his significant other came in for family training and is taking on responsibility for assisting him in tasks at home. He has requested to do outpatient therapy at discharge and has appointments already set up for PT and OT. Dr. Harvey had requested to follow up with him in 4 to 6 weeks as well as he needs to follow up with Cardiology as he recently was stented for ST-elevation ND prior to this admission by Dr. Molina. DISCHARGE CONDITION: Fair. DISCHARGE DISPOSITION: Home with significant other's support. DISCHARGE DIAGNOSES: 1. Right pontine stroke with left hemiparesis. 2. Coronary artery disease, status post recent ST-elevation myocardial infarction and stenting. 3. Nicotine addiction. 4. Aortic stenosis. 5. Hypertension. 6. Hyperlipidemia. 7. Depression. DISCHARGE MEDICATIONS: 1. Aspirin 81 mg daily. 2. Atorvastatin 80 mg q.p.m. 3. Plavix 75 mg daily. 4. Prozac 10 mg daily. 5. Hydrochlorothiazide 12.5 mg daily. 6. Lisinopril 20 mg b.i.d. 7. Metoprolol 25 mg daily. 8. Nitroglycerin 0.4 mg sublingual every 5 minutes p.r.n. chest pain. FOLLOWUP: 1. He has an appointment with occupational therapy on 01/02/18, at 1 p.m. 2. Appointment for physical therapy on 12/26/17, at 4 p.m. at the [facility]. 3. He is to call Dr. Molina for followup after ST-elevation ND and stenting. 4. Follow up with Dr. Varghese within 1 month. 5. Follow up with Dr. Harvey in 4 to 6 weeks. [id number]/[facility] #: [id number] MTDD
== END 2017-12-21 12:00 | disposition home or self-care (01) | DRG 56 ==
LOC: PMRU 13:04
PROVIDERS: ADMIT Physical Medicine & Rehabilitation; ATTEND Physical Medicine & Rehabilitation
PROC: F07Z5ZZ Bed Mobility Treatment (ICD-10-PCS; principal; 2017-12-10)
PROC: F07Z9ZZ Gait Training/Functional Ambulation Treatment (ICD-10-PCS; 2017-12-10)
PROC: F07Z8ZZ Transfer Training Treatment (ICD-10-PCS; 2017-12-10)
PROC: F07Z4ZZ Wheelchair Mobility Treatment (ICD-10-PCS; 2017-12-10)
PROC: F08Z0ZZ Bathing/Showering Techniques Treatment (ICD-10-PCS; 2017-12-10)
PROC: F08Z1ZZ Dressing Techniques Treatment (ICD-10-PCS; 2017-12-10)
PROC: F08Z3ZZ Feeding/Eating Treatment (ICD-10-PCS; 2017-12-10)
DX: I69.354 Hemiplegia and hemiparesis following cerebral infarction affecting left non-dominant side (principal); I21.19 ST elevation (STEMI) myocardial infarction involving other coronary artery of inferior wall; L03.114 Cellulitis of left upper limb; D69.6 Thrombocytopenia, unspecified; I25.10 Atherosclerotic heart disease of native coronary artery without angina pectoris; I11.9 Hypertensive heart disease without heart failure; F17.210 Nicotine dependence, cigarettes, uncomplicated; I35.0 Nonrheumatic aortic (valve) stenosis; E78.5 Hyperlipidemia, unspecified; F32.9 Major depressive disorder, single episode, unspecified; G51.0 Bell's palsy; F10.21 Alcohol dependence, in remission; Z95.1 Presence of aortocoronary bypass graft; Z95.5 Presence of coronary angioplasty implant and graft; Z79.02 Long term (current) use of antithrombotics/antiplatelets; Z79.82 Long term (current) use of aspirin; Z79.899 Other long term (current) drug therapy; I25.2 Old myocardial infarction; I69.392 Facial weakness following cerebral infarction
CPT/HCPCS: 36415; 80053; 85025; A9270-GY; G0515-GO

== ENCOUNTER 2018-01-28 06:53 | Day surgery (SDC) | payer MEDICARE ==
[~2018-01-28 06:53] MED LIST: Acetaminophen TAB* 325 MG PO PRN; Buffered Lidocaine 0.9% SYRIN* 5 ML/SYR SYRINGE INTRADERM ONE
[2018-01-28] MEDS ORDERED: Midazolam* 1 MG/ML 5 ML VIAL (5 MG) ONE (07:49)
[2018-01-28] MEDS ORDERED: Ketorolac 0.5% OPHTH (NF) 0.5 % 5 ML BTL ONE (07:58)
[2018-01-28] MEDS ORDERED: Tetracaine 0.5% OPTH.SOL 4 ML* 1 DROP BTL ONE (07:58)
[2018-01-28] MEDS ORDERED: Tropicamide 1% OPTH.SOL* BTL ONE (07:58)
[2018-01-28] MEDS ORDERED: acetaZOLAMIDE TAB* 250 MG ONE (07:58)
[2018-01-28] MEDS ORDERED: Cyclopentolate 1% OPTH.SOL* 2 ML BTL ONE (07:58)
[2018-01-28] MEDS ORDERED: Neomycin/Polymy/Dex OPHTH.OIN* 3.5 GM ONE (07:58)
[2018-01-28] MEDS ORDERED: Phenylephrine 2.5% OPTH.SOL* 2 ML BTL ONE (07:58)
[2018-01-28] MEDS ORDERED: Povidone Iodine 5% OPTH* 30 ML BTL ONE (07:58)
[2018-01-28] MEDS ORDERED: Lidocaine 1%* 5 ML VIAL ONE (07:58)
[2018-01-28 09:05] VITALS: BP 154/74
--- NOTE | 2018-01-28 11:17 | OP ---
DATE OF OPERATION: 01/28/18 [facility] DATE OF : 48 SURGEON: Hiren Kim MD. ANESTHESIA: Monitored anesthesia care. PREOPERATIVE DIAGNOSIS: Cataract, left eye. POSTOPERATIVE DIAGNOSIS: Cataract, left eye. OPERATIVE PROCEDURE: Extracapsular cataract extraction of the left eye with intraocular lens implant. IMPLANT: SN60WF 17.5 diopter lens to the left eye. COMPLICATIONS: None. DESCRIPTION OF PROCEDURE: The patient was given phenylephrine 2.5 % and cyclopentolate 1% eye drops to the operative eye in the preoperative area. The patient was taken to the operating room where a time-out was taken to identify the correct patient, site, and side of surgery. The patient's left eye was prepped and draped in the usual sterile fashion with 5% Betadine. A second time- out was taken to verify the correct patient, side, and site of surgery, as well as the correct lens implant. A lid speculum was placed to the left eye. A 1mm paracentesis blade was used to make a clear corneal incision. Preservative-free 1% lidocaine was injected into the anterior chamber. DisCoVisc was then injected into the anterior chamber. A 2.75 mm keratome blade was used to make a triplanar incision. A cystotome initiated a capsulorrhexis, which was completed with Utrata forceps in a continuous and curvilinear manner. Hydrodissection of the lens was performed with BSS on a cannula. The lens could be spun in a capsular bag. The phacoemulsification handpiece was used with a divide-and- conquer technique to remove the nucleus. The I/A handpiece then removed the residual cortical lens material. DisCoVisc was injected to inflate the capsular bag. The planned SN60WF 17.5 diopter lens was injected into the capsular bag. The residual DisCoVisc was removed from the eye with the I/A handpiece. The corneal incisions were hydrated and no leaks occurred at physiologic pressure around 20 mmHg per palpation. The lid speculum was removed and drapes were removed. Maxitrol ointment was placed to the surface of the operative eye. An adhesive patch and shield was then placed on the operative eye. The patient was taken to the postoperative area in stable condition. [id number]/[facility] #: [id number] [facility]
== END 2018-01-28 09:07 | disposition home or self-care (01) ==
LOC: OREAST 06:53
PROVIDERS: ATTEND Student in an Organized Health Care Education/Training Program
DX: H25.812 Combined forms of age-related cataract, left eye (principal); H40.053 Ocular hypertension, bilateral; H43.812 Vitreous degeneration, left eye; I25.10 Atherosclerotic heart disease of native coronary artery without angina pectoris; I25.2 Old myocardial infarction; Z95.1 Presence of aortocoronary bypass graft; Z87.891 Personal history of nicotine dependence
CPT/HCPCS: A9270-GY; J2250; V2632